=== PATIENT | male | born 1935 | race Caucasian/White ===

== ENCOUNTER 2023-01-01 21:21 | Inpatient (IN) | payer MEDICARE, SELFPAY ==
--- NOTE | ~2023-01-01 | XR_ITS ---
EXAMINATION: XR chest 1V portable DATE: 01/02/2023 01:00 INDICATION: Shortness of breath. TECHNIQUE: A single frontal view of the chest was obtained. COMPARISON: None. FINDINGS: The lung volumes are small. There is a diffuse interstitial pattern in the lungs. There are airspace opacities in the mid and lower lung zones with a basilar predominance. There is a small rig ht pleural effusion. No pneumothorax. Cardiomegaly is noted. There is a left chest wall pacer with le ads in the right atrium and right ventricle. IMPRESSION: 1. Small lung volumes with airspace opacities in the mid and lower lung zones with a basilar predomin ance, consistent with atelectasis versus pneumonia. 2. Interstitial pattern in the lungs, consistent with mild pulmonary edema versus chronic interstitia l lung disease. 3. Small right pleural effusion. 4. Cardiomegaly. Reviewed, dictated and finalized at location A. IMPRESSION: 1. Small lung volumes with airspace opacities in the mid and lower lung zones w ith a basilar predominance, consistent with atelectasis versus pneumonia. 2. Interstitial pattern in the lungs, consistent with mild pulmonary edema vers us chronic interstitial lung disease. 3. Small right pleural effusion. 4. Cardiomegaly.
--- NOTE | ~2023-01-01 | BM_ITS ---
EXAMINATION: CCL bone marrow asp w bx diag DATE: 01/03/2023 09:52 INDICATION: Anemia. TECHNIQUE: A time-out was performed to verify the patient's name, date of , and procedure to b e performed. The procedure including the risks, benefits, and alternatives was discussed with the pat ient. Risks discussed included bleeding and infection. The patient understood the risks and agreed to proceed. The skin overlying the left ilium was prepped and draped in usual sterile fashion. Anesth etic was administered with 1% lidocaine subcutaneously. An 11 gauge needle was inserted into the iliu m with fluoroscopic guidance. Bone marrow was aspirated. An 8 gauge needle was then inserted into the ilium with fluoroscopic guidance. A core bone marrow biopsy was obtained. There were no immediate co mplications. Fluoroscopy exposure time was 0.2 minutes. The total number of images was 115. FINDINGS: Real-time fluoroscopy demonstrates a marker overlying the left posterior superior iliac spi ne. IMPRESSION: 1. Fluoro-guided bone marrow aspiration. 2. Fluoro-guided bone marrow core biopsy. Reviewed, dictated and finalized at location A.
[2023-01-01 21:34] VITALS: BP 129/80; PULSE 107; RESP 20; TEMP 37; O2SAT 96
[2023-01-01 21:55] LABS: Eosinophils Absolute Auto 0.1 K/mm3 (0-0.3); Eosinophils Percent Auto 1.2 % (0-4.4); Hematocrit 21.2 % (42.0-52.0); Immature Granulocyte Absolute 0.06 K/mm3 (0.00-0.031); Immature Granulocyte Percent A 1.1 % (0-0.5); Lymphocytes Absolute Auto 0.95 K/mm3 (0.9-3.2); Lymphocytes Percent Auto 16.8 % (18.3-44.2); Mean Corpuscular HGB Conc 27.4 g/dl (32-36); Mean Corpuscular Hemoglobin 30.5 pg (26-34); Mean Corpuscular Volume 111.6 fl (80-100); Mean Platelet Volume 9.9 fl (7.4-10.4); Monocytes Absolute Auto 0.5 K/mm3 (0.1-0.6); Neutrophils Absolute Auto 4.1 K/mm3 (1.3-6.7); Neutrophils Percent Auto 71.9 % (45.5-73.1); Platelet Count Result 312 k/mm3 (150-375); Red Cell Distribution Width 18.3 % (11.5-14.5); White Blood Count 5.7 K/mm3 (4.5-10.0)
[2023-01-01 22:05] LABS: INR 1.2; Prothrombin Time 15.6 Seconds (11.1-14.7)
[2023-01-01 22:06] LABS: Alanine Aminotransferase 23 U/L (6-50); Alkaline Phosphatase 141 U/L (38-126); Anion Gap 4 mmol/L (8-16); Aspartate Amino Transferase 22 U/L (17-59); Bilirubin,Total 0.6 mg/dL (0.2-1.3); Blood Urea Nitrogen 23 mg/dL (9-20); Calcium 7.2 mg/dL (8.4-10.2); Carbon Dioxide 34 mmol/L (22-30); Chloride 100 mmol/L (98-107); Estimated CRCL calculation 66 ml/min; Estimated Glomerular Filt Rate > 60; Glucose 123 mg/dL (65-110); Potassium 3.9 mmol/L (3.4-5.0); Sodium 138 mmol/L (137-145)
[2023-01-01 22:07] LABS: Partial Thromboplastin Time 45.3 SECONDS (22.3-36.8)
[2023-01-01 22:27] LABS: Hemoglobin 5.8 g/dL (14.0-18.0)
[2023-01-01 22:28] LABS: Platelet Estimate Adequate (Adequate)
[2023-01-01 22:29] LABS: Anisocytosis 2+ (NORMAL); Hypochromasia 2+ (NORMAL); Polychromasia 1+ (NORMAL)
[2023-01-01 22:30] LABS: Schistocytes None Seen (NORMAL)
[2023-01-01 22:35] VITALS: RESP 22; O2SAT 97
--- NOTE | 2023-01-01 23:00 | ED.RECABL ---
HPI - Recheck/Abnormal Lab/Rx General Chief Complaint: Recheck/Abnormal Lab/Rx Stated Complaint: abn labs Time Seen by Provider: 01/01/23 22:03 History of Present Illness HPI narrative: This is an 87-year-old male, with previous history of anemia of unknown cause. Who is brought in by EMS for a low hemoglobin. The patient states he had routine labs done and was told his hemoglobin was 6. The patient states this is happened multiple times before. He states he underwent colonoscopy 2 years ago by his GI doctor at [facility] without obvious findings. The patient states he does take anticoagulants. EMS reports the patient wears 2 L of O2 at baseline was found satting in the mid 80s and increased to 4 L. He complains of some fatigue and intermittent dyspnea but has no other complaints today. Related Data Home Medications Medication Instructions Recorded Confirmed Pro-Stat AWC 17 g PO DAILY 01/02/23 01/02/23 Vitamin D2 1,250 mcg PO WEEKLY 01/02/23 01/02/23 acetaminophen 500 mg PO QID PRN Pain, Mild 01/02/23 01/02/23 albuterol sulfate 90 mcg/actuation 2 puff inhalation TID PRN 01/02/23 01/02/23 aerosol inhaler Shortness Of Breath Or Wheezing aluminum-magnesium hydroxide 30 ml BYMOUTH QID PRN Gastric 01/02/23 01/02/23 Reflux apixaban 5 mg tablet (Eliquis) 5 mg PO BID 01/02/23 01/02/23 aspirin 81 mg tablet 81 mg PO DAILY 01/02/23 01/02/23 atorvastatin 20 mg tablet 20 mg PO HS 01/02/23 01/02/23 calcium carbonate 1 tablet PO DAILY 01/02/23 01/02/23 cyanocobalamin (vitamin B-12) 1,000 mcg PO DAILY 01/02/23 01/02/23 1,000 mcg tablet docusate sodium 100 mg capsule 100 mg PO BID 01/02/23 01/02/23 dutasteride 0.5 mg capsule 0.5 mg PO DAILY 01/02/23 01/02/23 ferrous sulfate 325 mg (65 mg 325 mg PO BID 01/02/23 01/02/23 iron) tablet fluticasone fur. 100 mcg-umeclid 1 inh inhalation DAILY 01/02/23 01/02/23 62.5 mcg-vilant 25 mcg inhalat.powder (Trelegy Ellipta) fluticasone propionate 50 2 spray intranasal DAILY 01/02/23 01/02/23 mcg/actuation nasal spray,suspension folic acid 1 mg tablet 1 mg PO DAILY 01/02/23 01/02/23 furosemide 20 mg tablet 20 mg PO DAILY 01/02/23 01/02/23 furosemide 40 mg tablet 40 mg PO DAILY 01/02/23 01/02/23 levothyroxine 100 mcg PO DAILY 01/02/23 01/02/23 lidocaine 5 % topical patch 1 patch topical DAILY 01/02/23 01/02/23 magnesium hydroxide 400 mg PO DAILY PRN Constipation 01/02/23 01/02/23 ondansetron 4 mg disintegrating 4 mg PO Q4H PRN Nausea And Vomiting 01/02/23 01/02/23 tablet oxycodone 5 mg tablet 5 mg PO Q4H PRN pain 7-10 01/02/23 01/02/23 pantoprazole 40 mg PO BID 01/02/23 01/02/23 potassium chloride 20 meq PO DAILY 01/02/23 01/02/23 senna 8.6 mg PO HS 01/02/23 01/02/23 sertraline 50 mg PO HS 01/02/23 01/02/23 Allergies Allergy/AdvReac Type Severity Reaction Status Date / Time No Known Allergies Allergy Verified 01/01/23 21:44 Review of Systems Review of Systems: CONSTITUTIONAL: Denies fever, chills, or sweats. CARDIOVASCULAR: Denies chest pain, palpitations, or edema. RESPIRATORY: Intermittent dyspnea on exertion denies cough GASTROINTESTINAL: Chronic dark stools (takes iron) denies abdominal pain, nausea, vomiting, or diarrhea. GENITOURINARY: Denies dysuria or hematuria. SKIN: Denies rash or itching. MUSCULOSKELETAL: Denies back pain, joint pain, or myalgia. NEUROLOGIC: Denies headache, numbness, dizziness, or weakness. PSYCHIATRIC: Denies anxiety or depression. [facility] Past Medical History Medical History (Updated 01/02/23 @ 00:21 by Isrrael Ventura MD) Anemia CHF (congestive heart failure) History of femur fracture Hypertension Hypothyroidism Surgical History Surgical History (Updated 01/02/23 @ 00:19 by Enid Rizvi MD) Status post placement of cardiac pacemaker Social History Social History (Updated 01/01/23 @ 23:04 by Isrrael Ventura MD) Smoking status: Never smoker Alcohol intake: current Substance use: never Lack of Transporta
--- NOTE | 2023-01-01 23:16 | PC.NURSE ---
gave report and care to FAHAD Michaels. all questions answered.
[2023-01-01 23:28] VITALS: BP 127/64; PULSE 90; RESP 25; O2SAT 94
--- NOTE | 2023-01-01 23:40 | PM.IMHP ---
H&P: HPI History of Present Illness Date/Time: 01/01/23 23:40 Chief Complaint: Abnormal lab value Narrative: This is an 87-year-old male with past medical history significant for congestive heart failure, history of femur fracture, hypertension, hypothyroidism patient has pacemaker implanted. He is a resident at a local senior living was brought for evaluation after routine lab work showed a hemoglobin of 5.8. Patient states that his stools are black for the last several weeks has had colonoscopies done in the recent past, patient denies any hematemesis or coffee-ground emesis, has had swelling of the legs and arms, denies lightheadedness, dizziness, syncope or near-syncope, no chest pain, no fevers, no chills, no nausea, no vomiting no diarrhea. Preliminary workup in the emergency room hemoglobin was 5.8, hematocrit 21, MCV 111, at this time iron studies are pending. Patient is been admitted for further evaluation management and treatment. A chest x-ray was reported as: EXAMINATION: XR chest 1V portable DATE: 01/02/2023 01:00 INDICATION: Shortness of breath. TECHNIQUE: A single frontal view of the chest was obtained. COMPARISON: None. FINDINGS: The lung volumes are small. There is a diffuse interstitial pattern in the lungs. There are airspace opacities in the mid and lower lung zones with a basilar predominance. There is a small right pleural effusion. No pneumothorax. Cardiomegaly is noted. There is a left chest wall pacer with leads in the right atrium and right ventricle. IMPRESSION: 1. Small lung volumes with airspace opacities in the mid and lower lung zones with a basilar predominance, consistent with atelectasis versus pneumonia. 2. Interstitial pattern in the lungs, consistent with mild pulmonary edema versus chronic interstitial lung disease. 3. Small right pleural effusion. 4. Cardiomegaly. Review of Systems Review of Systems: Shortness of breath, swelling, palpitations. Constitutional: Constitutional: Denies chills, Denies fever(s) and Denies night sweats Eyes: Eyes: Denies change in vision ENT: Denies dysphagia, Denies vertigo and Denies dizziness Cardiovascular: Cardiovascular: Denies chest pain at rest, Denies syncope, Reports rapid heart rate, Reports pedal edema, Reports leg edema, Denies lightheadedness, Denies radiating jaw, neck or arm pain, Reports dyspnea on exertion, Reports orthopnea and Reports paroxysmal nocturnal dyspnea Respiratory: Respiratory: Reports chest congestion, Reports cough, Denies excessive phlegm production, Denies pain on inspiration and Reports dyspnea on exertion Gastrointestinal: Gastrointestinal: Denies dyspepsia, Denies heartburn, Denies diarrhea and Denies nausea Genitourinary: Genitourinary: Reports no additional male genitourinary complaints and Reports as per HPI Musculoskeletal: Musculoskeletal: Denies arthralgias and Denies joint swelling Integumentary/Breasts: Skin/Breast: Denies rash and Reports other (Skin tears) Neurologic: Denies focal weakness and Denies Sensory deficit (Neuro) Psychiatric: Psychiatric: Reports no additional psychiatric complaints and Reports as per HPI Endocrine: Endocrine: Denies cold intolerance, Denies deepening of the voice, Denies heat intolerance and Denies polyuria Hematologic/Lymphatic: Hematologic/Lymphatic: Reports no additional hematologic/lymphatic complaints and Reports as per HPI Allergic/Immunologic: Allergic/Immunologic: Reports no additional allergic/immunologic complaints and Reports as per HPI PMFSH Past Medical History Medical History Anemia CHF (congestive heart failure) History of femur fracture Hypertension Hypothyroidism Surgical History Surgical History Status post placement of cardiac pacemaker Social History Social History Smoking statu
[2023-01-01] MEDS: FUROSEMIDE INJ 40 MG/4 ML VIAL 20 MG IV PUSH (23:51)
[2023-01-01] MEDS: CALCIUM GLUCONATE 1,000 MG/10 ML VIAL 1000 MG IV PUSH (23:51)
[2023-01-02] VITALS (17 sets, daily range): BP systolic 106–125; BP diastolic 45–92; PULSE 54–83; RESP 14–22; TEMP 36.2–37.1; O2SAT 91–100; BMI 30.4
[2023-01-02] MEDS: SODIUM CHLORIDE 0.9% IV 250 ML IV CONT (00:43)
[2023-01-02] MEDS: TUBING, BLOOD PLUM PUMP TUBING 1 EACH XX ×2 (00:44→03:43)
[2023-01-02 01:18] LABS: Iron 53 ug/dL (49-181)
[2023-01-02 01:31] LABS: Percent Iron Saturation 20 % (20-50)
--- NOTE | 2023-01-02 01:36 | ADMGEN ---
This patient, Aiden Fernandez, was admitted to [facility] Surg Room 309-01. Patient/family oriented to hospital policies and general routines including ID bracelet, bed and alarms, visiting hours, pain management, procedures, bathroom and other care routines, personal items, smoking policy, room service/diet, and visiting hours. Information on how to activate the Rapid Response Team has been discussed. Patient/Family are encouraged to report perceived risks to care and to ask questions if they do not understand what they are told or what they should do.
--- NOTE | 2023-01-02 06:29 | WPDGICN ---
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 MCV is quite elevated at over 111. He had been started on B12 but does not know when. He is fairly certain that he has not seen a psychological science professor. (2) GI bleed: Qualifiers: GI bleed type/associated pathology: unspecified gastrointestinal hemorrhage type Qualified Code(s): K92.2 - Gastrointestinal hemorrhage, unspecified Code(s): K92.2 - Gastrointestinal hemorrhage, unspecified Status: Acute Assessment and Plan: Although he has a Hemoccult-positive stool, he has not her road overt bleeding. He had 2 EGDs earlier this year at that time something was cauterized. 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 I will get the records from [facility]. (3) Status post placement of cardiac pacemaker: Code(s): Z95.0 - Presence of cardiac pacemaker Status: Acute Assessment and Plan: He states that he had atrial flutter and was on an anticoagulant but he states that when the pacemaker was put in he had a coagulant therapy was discontinued. Then, after he thought about it further, he thinks maybe he was placed on Eliquis at the same time as the pacer was inserted. Nevertheless he is fairly certain that he does not take it at this time. Plan Will await records from other hospitals due to the fact that it seems that his anemia had been thoroughly investigated already. He certainly does not have microcytic indices that would be suggestive of gastrointestinal blood loss. He perhaps ought to be seen by Hematology GI Consult Note Consult date/time: 01/02/23 06:29 HPI: Aiden Fernandez is a 87 year old male who presented to emergency room stating that he was told by his physician that his blood count was low and he needed to come in. He states he has been somewhat short of breath lately. He tells me that about a year ago he was found to be anemic and has struggled with this ever since. He does not see blood in his stools. His stools are chronically dark because he takes iron. I note that he also is on vitamin B12. He has megaloblastic disease. He has never seen a psychological science professor. He had EGD twice in the last [address] [facility]. Both times he states that a DrSadie Cauterized something. He had a colonoscopy about [address] Vazquez he was told that was normal. He has no abdominal pain. He does not take NSAIDs. He denies heartburn indigestion or loss of appetite. He also denies weight loss or any significant change in his bowel movements. Review of Systems Review of Systems: All systems reviewed & are unremarkable except as noted in HPI and below PMFSH Past Medical History Medical History Anemia CHF (congestive heart failure) History of femur fracture Hypertension Hypothyroidism Surgical History Surgical History Status post placement of cardiac pacemaker Social History Social History Smoking status: Never smoker Alcohol intake: current Substance use: never Lack of Transportation: No Lack of Food: Never True Current Housing: I Have Housing Concerned About Future Housing: No Difficulty Paying Gas/Electric Bills: No Difficulty Paying for Meds: No Currently Unemployed: No Education: Master's Degree or Higher Difficulty w/ Childcare or Family Care: No Spiritual care concerns: No Meds Home Medications and Allergies Home Medications Medication Instructions Recorded Confirmed Type Pro-Stat AWC 17 g PO DAILY 01/02/23 01/02/23 History Vitamin D2 1,250 mcg PO WEEKLY 01/02/23 01/02/23 History acetaminophen 500 mg PO QID PRN Pain, Mild 01/02/23 01/02/23 H
[2023-01-02 07:02] LABS: Eosinophils Absolute Auto 0.1 K/mm3 (0-0.3); Eosinophils Percent Auto 1.9 % (0-4.4); Hematocrit 25.7 % (42.0-52.0); Hemoglobin 7.4 g/dL (14.0-18.0); Immature Granulocyte Absolute 0.07 K/mm3 (0.00-0.031); Immature Granulocyte Percent A 1.4 % (0-0.5); Lymphocytes Absolute Auto 0.94 K/mm3 (0.9-3.2); Lymphocytes Percent Auto 19.5 % (18.3-44.2); Mean Corpuscular HGB Conc 28.8 g/dl (32-36); Mean Corpuscular Hemoglobin 29.4 pg (26-34); Mean Platelet Volume 10.1 fl (7.4-10.4); Monocytes Absolute Auto 0.5 K/mm3 (0.1-0.6); Monocytes Percent Auto 10.6 % (2.6-8.5); Neutrophils Absolute Auto 3.2 K/mm3 (1.3-6.7); Neutrophils Percent Auto 66.6 % (45.5-73.1); Platelet Count Result 278 k/mm3 (150-375); Red Blood Count 2.52 M/mm3 (4.6-6.20); Red Cell Distribution Width 21.8 % (11.5-14.5); White Blood Count 4.8 K/mm3 (4.5-10.0)
[2023-01-02 07:09] LABS: Anion Gap 0 mmol/L (8-16); Blood Urea Nitrogen 21 mg/dL (9-20); Calcium 7.3 mg/dL (8.4-10.2); Carbon Dioxide 39 mmol/L (22-30); Chloride 100 mmol/L (98-107); Estimated CRCL calculation 71 ml/min; Estimated Glomerular Filt Rate > 60; Glucose 94 mg/dL (65-110); Potassium 3.4 mmol/L (3.4-5.0); Sodium 139 mmol/L (137-145)
[2023-01-02] MEDS: oxyCODONE HCL (*CRX) 5 MG TAB IR PO ×2 (12:28→16:59)
[2023-01-02] MEDS: PHARMACIST COMMUNICATION ORDER 1 EACH XX (12:31)
--- NOTE | 2023-01-02 12:31 | PM.IMPN ---
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 Will continued to monitor. (2) Status post placement of cardiac pacemaker: Code(s): Z95.0 - Presence of cardiac pacemaker Status: Acute Assessment and Plan: Stable, continue current treatment. (3) CHF (congestive heart failure): Code(s): I50.9 - Heart failure, unspecified Status: Acute Assessment and Plan: Stable, continue current treatment. Subjective Date/time seen: 01/02/23 12:31 Interval history: Patient seen during morning rounds today. Patient is feeling slightly better. No shortness of breath or chest pain. No abdominal pain, nausea, no vomiting. Mood stable. Review of Systems Review of Systems: All systems reviewed & are unremarkable except as noted in HPI and below (the history and physical exam.) Exam Narrative: Patient is laying in a stretcher Const: General: comfortable, no acute distress, well developed, alert, awake, ill appearing, average body habitus and edematous Nutritional Appearance: average body habitus and edematous Orientation/consciousness: patient oriented x3 HENMT: Head: normal to inspection, normocephalic and atraumatic Ears: hearing grossly normal bilaterally Face/Nose/Sinus: normal facial exam Face and sinus: normal facial exam Eyes: General: appearance normal, both eyes and all related structures Pupils: Equal, round and reactive pupils present EOM: EOMs intact bilaterally Neck: Neck: full ROM, no lymphadenopathy and no JVD Thyroid: thyroid normal Lymphatic: no lymphadenopathy noted Resp: Effort & Inspection: normal respiratory effort and able to speak in complete sentences Auscultation: clear to auscultation bilaterally Cardio: Jugular venous distension: no JVD Rate: regular rate Rhythm: regular rhythm Heart sounds: S1 normal heart sound present and S2 normal heart sound present GI: Inspection: normal to inspection : General: Yes deferred Skin: General skin exam: wounds noted (skin tear bilateral upper extremities) Rashes: no rashes Wounds: no wounds and wounds noted (skin tear bilateral upper extremities) Neuro: General: patient oriented x3, CN's II-XI intact bilaterally and Unable to assess gait Cranial nerves: Yes CN's II-XII intact bilaterally and Yes Equal, round and reactive pupils present Cognition (Neuro): normal cognition Speech: normal speech Gait exam (Neuro): Normal gait present and Unable to assess gait Motor exam (neuro): 5/5 motor strength present throughout Extrem: General: normal to inspection, full ROM, no joint enlargement, no pedal edema and edema bilateral (4+) Objective Data Vital Signs Vital Signs: Vital Signs - 24 hr 01/01/23 21:34 01/01/23 22:35 01/01/23 23:28 Temperature 37.0 C Pulse Rate 107 H 90 Respiratory Rate 20 22 H 25 H Blood Pressure 129/80 127/64 Pulse Oximetry 96 97 94 Oxygen Delivery Nasal Cannula Oxygen Flow Rate 4 4 01/02/23 00:39 01/02/23 00:55 01/02/23 00:57 Temperature 37.0 C 36.7 C Pulse Rate 83 79 77 Respiratory Rate 21 H 21 H 22 H Blood Pressure 116/92 H 119/69 119/69 Pulse Oximetry 98 100 100 Oxygen Delivery Oxygen Flow Rate 01/02/23 02:06 01/02/23 02:34 01/02/23 02:41 Temperature 36.3 C L 36.3 C L Pulse Rate 71 71 Respiratory Rate 16 16 Blood Pressure 106/45 L 106/45 L Pulse Oximetry 95 95 95 Oxygen Delivery Nasal Cannula Oxygen Flow Rate 4 01/02/23 01:37 01/02/23 02:57 01/02/23 03:57 Temperature 36.6 C 36.2 C L 36.6 C Pulse Rate 82 76 54 L Respiratory Rate 17 16 16 Blood Pressure 124/56 L 125/56 L 122/55 L Pulse Oximetry 91 93 96 Oxygen Delivery Oxygen Flow Rate 01/02/23 04:33 01/02/23 05:30 01/02/23 09:10 Temperature 36.3 C L 36.3 C L Pulse Rate 72 72 Respiratory Rate 16 16 Blood Pressure
[2023-01-02] MEDS: FUROSEMIDE 40 MG TABLET PO (12:58)
--- NOTE | 2023-01-02 19:18 | PDONCCN ---
HPI - Date of Consult Date/Time: 01/02/23 19:18 Requesting Physician: Enid Rizvi MD Primary Care Provider: PHYSICIAN NOT ON STAFF - Consult Narrative Reason for consult: Macrocytic anemia Narrative: Aiden Fernandez is a 87 year old male with history of congestive heart failure, hypertension and hypothyroidism who is a [facility] resident came into the hospital with significant tiredness and fatigue and found to have hemoglobin of 5.8. Iron studies were done before the blood transfusion showed normal serum iron of 53 with iron saturation of 20%. He has been having black tarry stool but has been taking oral iron twice a day as well. He denies any chest pain and shortness of breath. Hemoccult stool was positive. According to patient he had colonoscopy done 8 months ago and 1 of the bleeding lesion was cauterized. Patient now received 2 units of packed red blood cell. Denies any other complaint other than tiredness and fatigue. Review of Systems - Review of Systems All systems reviewed & are unremarkable except as noted in HPI and [facility] Medical History: Medical History (Last Reviewed 01/02/23 @ 07:20 by Kash Banuelos MD) Anemia CHF (congestive heart failure) History of femur fracture Hypertension Hypothyroidism Surgical History: Surgical History (Last Reviewed 01/02/23 @ 07:20 by Kash Banuelos MD) Status post placement of cardiac pacemaker - Social History Social History: Social History (Last Reviewed 01/02/23 @ 07:20 by Kash Banuelos MD) Alcohol Use: Alcohol intake: current Substance Use: Substance use: never Others: Spiritual care concerns: No Smoking Status: Smoking status: Never smoker Social Determinants of Health: Has the Lack of Transportation Kept You From Medical Appointments or From Getting Medications?: No Within the Past 12 Months, Were You Worried Whether Your Food Would Run Out Before You Got Money to Buy More?: Never True What is Your Housing Situation Today?: I Have Housing Are You Worried That in the Next 2 Months, You May Not Have Your Own Housing to Live In?: No Do You Have Trouble Paying Your Heating Or Electricity Bill?: No Do You Have Trouble Paying For Medicines?: No Are You Currently Unemployed and Looking for Work?: No Highest Level of Education Completed: Master's Degree or Higher Do You Have Trouble With Childcare or the Care of a Family Member?: No Exam - Vital Signs Vital Signs - 24 hr 01/01/23 21:34 01/01/23 22:35 01/01/23 23:28 Temperature 37.0 C Pulse Rate 107 H 90 Respiratory Rate 20 22 H 25 H Blood Pressure 129/80 127/64 Pulse Oximetry 96 97 94 Oxygen Delivery Nasal Cannula Oxygen Flow Rate 4 4 01/02/23 00:39 01/02/23 00:55 01/02/23 00:57 Temperature 37.0 C 36.7 C Pulse Rate 83 79 77 Respiratory Rate 21 H 21 H 22 H Blood Pressure 116/92 H 119/69 119/69 Pulse Oximetry 98 100 100 Oxygen Delivery Oxygen Flow Rate 01/02/23 02:06 01/02/23 02:34 01/02/23 02:41 Temperature 36.3 C L 36.3 C L Pulse Rate 71 71 Respiratory Rate 16 16 Blood Pressure 106/45 L 106/45 L Pulse Oximetry 95 95 95 Oxygen Delivery Nasal Cannula Oxygen Flow Rate 4 01/02/23 01:37 01/02/23 02:57 01/02/23 03:57 Temperature 36.6 C 36.2 C L 36.6 C Pulse Rate 82 76 54 L Respiratory Rate 17 16 16 Blood Pressure 124/56 L 125/56 L 122/55 L Pulse Oximetry 91 93 96 Oxygen Delivery Oxygen Flow Rate 01/02/23 04:33 01/02/23 05:30 01/02/23 09:10 Temperature 36.3 C L 36.3 C L Pulse Rate 72 72 Respiratory Rate 16 16 Blood Pressure 115/51 L 115/51 L Pulse Oximetry 97 97 94 Oxygen Delivery Nasal Cannula Oxygen Flow Rate 3 01/02/23 08:00 01/02/23 13:46 01/02/23 02:42 Temperature 36.8 C 36.3 C L Pulse Rate 74 71 Respiratory Rate 18 16 Blood Pressure 125/70 106/45 L Pulse Oximetry 94 99 Oxygen Delivery Nasal Cannula Oxygen Flow Rate 3
[2023-01-02] MEDS: ATORVASTATIN 20 MG TABLET PO (20:40)
[2023-01-02] MEDS: DOCUSATE SODIUM 100 MG CAPSULE PO (20:40)
[2023-01-02] MEDS: SERTRALINE HCL 50 MG TABLET PO (20:41)
[2023-01-02] MEDS: PANTOPRAZOLE 40 MG TABLET PO (20:41)
[2023-01-03 05:37] VITALS: BP 129/63; PULSE 66; RESP 16; TEMP 36.8; O2SAT 93
[2023-01-03] MEDS: LEVOTHYROXINE SODIUM 75 MCG TABLET PO (05:46)
[2023-01-03 06:29] LABS: Basophils Percent Auto 0.2 % (0.2-1.2); Eosinophils Absolute Auto 0.1 K/mm3 (0-0.3); Eosinophils Percent Auto 1.7 % (0-4.4); Hemoglobin 7.8 g/dL (14.0-18.0); Immature Granulocyte Absolute 0.04 K/mm3 (0.00-0.031); Immature Granulocyte Percent A 0.9 % (0-0.5); Lymphocytes Absolute Auto 0.79 K/mm3 (0.9-3.2); Lymphocytes Percent Auto 16.9 % (18.3-44.2); Mean Corpuscular HGB Conc 28.9 g/dl (32-36); Mean Corpuscular Hemoglobin 29.5 pg (26-34); Mean Corpuscular Volume 102.3 fl (80-100); Mean Platelet Volume 10.3 fl (7.4-10.4); Monocytes Absolute Auto 0.5 K/mm3 (0.1-0.6); Monocytes Percent Auto 10.5 % (2.6-8.5); Neutrophils Absolute Auto 3.3 K/mm3 (1.3-6.7); Neutrophils Percent Auto 69.8 % (45.5-73.1); Platelet Count Result 303 k/mm3 (150-375); Red Blood Count 2.64 M/mm3 (4.6-6.20); Red Cell Distribution Width 21.1 % (11.5-14.5); White Blood Count 4.7 K/mm3 (4.5-10.0)
[2023-01-03 07:01] LABS: Anisocytosis 2+ (NORMAL); Hypochromasia 2+ (NORMAL); Ovalocytes 1+ (NORMAL)
[2023-01-03 07:02] LABS: Schistocytes None Seen (NORMAL)
[2023-01-03] MEDS: FLUTICASONE/UMECLIDIN/VILANTER 100-62.5-25 MCG ELLIPTA 1 PUFF INHALATION (07:05)
[2023-01-03 07:40] VITALS: PULSE 71; RESP 18; O2SAT 90
[2023-01-03 08:00] VITALS: O2SAT 90
[2023-01-03] MEDS: oxyCODONE HCL (*CRX) 5 MG TAB IR PO ×3 (10:01→20:15)
[2023-01-03] MEDS: FLUTICASONE PROPIONATE 0.05% NA SPR 16 GM BTL (*BKC) 2 SPRAY NASAL (10:02)
[2023-01-03] MEDS: PANTOPRAZOLE 40 MG TABLET PO ×2 (10:02→20:15)
[2023-01-03] MEDS: FOLIC ACID 1 MG TABLET PO (10:02)
[2023-01-03] MEDS: DUTASTERIDE 0.5 MG CAPSULE PO (10:02)
[2023-01-03] MEDS: LIDOCAINE 5% PATCH 1 PATCH TOPICAL (10:02)
[2023-01-03] MEDS: POTASSIUM CHLORIDE 20 MEQ ER TABLET PO (10:02)
[2023-01-03] MEDS: FUROSEMIDE 40 MG TABLET PO (10:03)
[2023-01-03] MEDS: CYANOCOBALAMIN 1,000 MCG TABLET 1000 MCG PO (10:03)
[2023-01-03] MEDS: DOCUSATE SODIUM 100 MG CAPSULE PO ×2 (10:03→20:15)
[2023-01-03 14:00] VITALS: BP 106/65; PULSE 78; RESP 16; TEMP 36.6; O2SAT 98
--- NOTE | 2023-01-03 15:22 | PM.IMPN ---
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 He had routine labs done on 01/01/2023 UA is improved was found to be 6. He underwent colonoscopy 2 years ago by GI doctor at [facility] without obvious finding. He does take anticoagulants. Burst winded oxygen at home at baseline. He was also saturating 80s and had to be increased to 4 L. Reported fatigue and exertional dyspnea. He is on apixaban and aspirin at home hemoglobin in the ER was 5.8 macrocytic. Hemoccult was positive INR 1.2. Was admitted for further evaluation and management. He underwent transfusion of packed red blood cell. Chest x-ray with small lung volumes with airspace opacity in the mid and lower lung zones with basilar predominance. Consistent with atelectasis versus pneumonia. Interstitial pattern in the lungs consistent with mild pulmonary edema versus chronic interstitial lung disease. Small right pleural effusion and cardiomegaly. Pacemaker in left chest wall in situ. Is started on diuresis for his macrocytic anemia hematology and GI has been consulted. He is on B12 replacement therapy. No overt bleeding but 2 EGDs in the past with some cauterization. Records to be obtained. He has history of atrial fibrillation on anticoagulation for that. Hematology has been consulted and with macrocytosis his been evaluated with bone marrow biopsy today H&H to monitor. No transfusion needed today. B12 348 methylmalonic acid pending RBC folate pending Subjective Date/time seen: 01/03/23 15:22 Interval history: Patient underwent bone marrow biopsy today. No shortness of breath chest pain. No abdominal pain or nausea vomiting. Review of Systems Review of Systems: All systems reviewed & are unremarkable except as noted in HPI and below (the history and physical exam.) Exam Narrative: GENERAL: Well-developed, well-nourished, and in no acute distress. HEAD: Normocephalic, atraumatic. EYES: PERRLA and EOMI. conjunctival pallor ENT: Nares clear, no rhinorrhea or epistaxis.? Mucous membranes moist.? NECK: Supple. ? No carotid bruits or JVD CHEST: Clear to auscultation.? No respiratory distress.? No wheezes rales or rhonchi HEART: Regular rate and rhythm.? No murmur heard.? Normal peripheral pulses. ABDOMEN: Soft, nontender, nondistended, normal active bowel sounds. EXTREMITIES: Normal range of motion.? 2+ edema to the knees bilaterally, 1+ edema of the bilateral upper extremities SKIN: Warm, dry, no rash. NEURO:? Alert and oriented x3. Moving all 4 limbs purposefully. PSYCH: Normal mood and affect. Objective Data Vital Signs Vital Signs: Vital Signs - 24 hr 01/02/23 21:45 01/02/23 20:00 01/03/23 05:37 Temperature 98.7 F 98.3 F Pulse Rate 69 66 Respiratory Rate 14 16 Blood Pressure 117/65 129/63 Pulse Oximetry 91 94 93 Oxygen Delivery Nasal Cannula Oxygen Flow Rate 3 01/03/23 07:40 01/03/23 07:40 01/03/23 08:00 Temperature Pulse Rate 71 71 Respiratory Rate 18 18 Blood Pressure Pulse Oximetry 90 90 Oxygen Delivery Nasal Cannula Nasal Cannula Oxygen Flow Rate 3 3 01/03/23 14:00 Temperature 97.8 F Pulse Rate 78 Respiratory Rate 16 Blood Pressure 106/65 Pulse Oximetry 98 Oxygen Delivery Oxygen Flow Rate Intake/Output Intake/Output: Intake & Output 12/31/22 01/01/23 01/02/23 01/03/23 23:59 23:59 23:59 23:59 Intake Total 1820 1710 Output Total 2475 1200 Balance -655 510 Meds/Results Medications: Active Medications Generic Name Dose Route Start La
[2023-01-03] MEDS: SENNOSIDES 8.6 MG TABLET PO (20:15)
[2023-01-03] MEDS: ATORVASTATIN 20 MG TABLET PO (20:15)
[2023-01-03] MEDS: SERTRALINE HCL 50 MG TABLET PO (20:15)
[2023-01-03 22:00] VITALS: BP 112/64; PULSE 74; RESP 18; TEMP 36.2; O2SAT 97
[2023-01-04] VITALS (7 sets, daily range): BP systolic 92–113; BP diastolic 49–57; PULSE 72–88; RESP 18–22; TEMP 36.9–37.5; O2SAT 91–97
[2023-01-04] MEDS: oxyCODONE HCL (*CRX) 5 MG TAB IR PO ×5 (02:42→20:15)
[2023-01-04] MEDS: LEVOTHYROXINE SODIUM 75 MCG TABLET PO (05:35)
[2023-01-04 06:25] LABS: Eosinophils Absolute Auto 0.1 K/mm3 (0-0.3); Eosinophils Percent Auto 1.1 % (0-4.4); Hematocrit 25.4 % (42.0-52.0); Hemoglobin 7.3 g/dL (14.0-18.0); Immature Granulocyte Absolute 0.05 K/mm3 (0.00-0.031); Immature Granulocyte Percent A 0.9 % (0-0.5); Lymphocytes Absolute Auto 0.97 K/mm3 (0.9-3.2); Lymphocytes Percent Auto 18.4 % (18.3-44.2); Mean Corpuscular HGB Conc 28.7 g/dl (32-36); Mean Corpuscular Volume 100.8 fl (80-100); Mean Platelet Volume 10.3 fl (7.4-10.4); Monocytes Absolute Auto 0.6 K/mm3 (0.1-0.6); Monocytes Percent Auto 12.1 % (2.6-8.5); Neutrophils Absolute Auto 3.6 K/mm3 (1.3-6.7); Neutrophils Percent Auto 67.5 % (45.5-73.1); Platelet Count Result 280 k/mm3 (150-375); Red Blood Count 2.52 M/mm3 (4.6-6.20); White Blood Count 5.3 K/mm3 (4.5-10.0)
[2023-01-04 06:37] LABS: Alanine Aminotransferase 18 U/L (6-50); Albumin Level 2.8 g/dL (3.5-5.1); Alkaline Phosphatase 101 U/L (38-126); Anion Gap 2 mmol/L (8-16); Aspartate Amino Transferase 19 U/L (17-59); Bilirubin,Total 0.8 mg/dL (0.2-1.3); Blood Urea Nitrogen 18 mg/dL (9-20); Calcium 7.4 mg/dL (8.4-10.2); Carbon Dioxide 39 mmol/L (22-30); Chloride 94 mmol/L (98-107); Estimated CRCL calculation 71 ml/min; Estimated Glomerular Filt Rate > 60; Glucose 92 mg/dL (65-110); Magnesium 2.1 mg/dL (1.6-2.3); Potassium 3.8 mmol/L (3.4-5.0); Sodium 135 mmol/L (137-145)
[2023-01-04 06:52] LABS: Anisocytosis 2+ (NORMAL); Hypochromasia 3+ (NORMAL); Platelet Estimate Adequate (Adequate); Schistocytes None Seen (NORMAL)
[2023-01-04] MEDS: FLUTICASONE/UMECLIDIN/VILANTER 100-62.5-25 MCG ELLIPTA 1 PUFF INHALATION (08:52)
[2023-01-04] MEDS: DUTASTERIDE 0.5 MG CAPSULE PO (09:10)
[2023-01-04] MEDS: CYANOCOBALAMIN 1,000 MCG TABLET 1000 MCG PO (09:10)
[2023-01-04] MEDS: PANTOPRAZOLE 40 MG TABLET PO ×2 (09:10→20:15)
[2023-01-04] MEDS: FUROSEMIDE 40 MG TABLET PO (09:10)
[2023-01-04] MEDS: POTASSIUM CHLORIDE 20 MEQ ER TABLET PO (09:10)
[2023-01-04] MEDS: CALCIUM CARBONATE (TUMS) 500 MG (200 MG ELEMENTAL) PO (09:10)
[2023-01-04] MEDS: DOCUSATE SODIUM 100 MG CAPSULE PO ×2 (09:10→20:14)
[2023-01-04] MEDS: FLUTICASONE PROPIONATE 0.05% NA SPR 16 GM BTL (*BKC) 2 SPRAY NASAL (09:11)
[2023-01-04] MEDS: FOLIC ACID 1 MG TABLET PO (09:11)
[2023-01-04] MEDS: ACETAMINOPHEN 500 MG TABLET PO ×2 (09:16→16:54)
[2023-01-04] MEDS: LIDOCAINE 5% PATCH 1 PATCH TOPICAL (09:16)
--- NOTE | 2023-01-04 15:30 | PM.IMPN ---
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 He had routine labs done on 01/01/2023 and his hemoglobin was found to be 6. He underwent colonoscopy 2 years ago by GI doctor at [facility] without obvious finding. He does take anticoagulants. He was also saturating 80s and had to be increased to 4 L. Reported fatigue and exertional dyspnea. He is on apixaban and aspirin at home hemoglobin in the ER was 5.8 macrocytic. Hemoccult was positive INR 1.2. Was admitted for further evaluation and management. He underwent transfusion of packed red blood cell. Chest x-ray with small lung volumes with airspace opacity in the mid and lower lung zones with basilar predominance. Consistent with atelectasis versus pneumonia. Interstitial pattern in the lungs consistent with mild pulmonary edema versus chronic interstitial lung disease. Small right pleural effusion and cardiomegaly. Pacemaker in left chest wall in situ. Is started on diuresis. For his macrocytic anemia hematology and GI has been consulted. He is on B12 replacement therapy. No overt bleeding but 2 EGDs in the past with some cauterization. Records to be obtained. He has history of atrial fibrillation on anticoagulation for that. Hematology has been consulted and with macrocytosis his been evaluated with bone marrow biopsy today H&H to monitor. B12 348 methylmalonic acid pending RBC folate pending Subjective Date/time seen: 01/04/23 15:30 Interval history: P is working with the therapy this morning. Reports right knee pain. Denies any other complaints. Labs were reviewed. Remains afebrile. Shortness of breath with exertion. Review of Systems Review of Systems: All systems reviewed & are unremarkable except as noted in HPI and below (the history and physical exam.) Exam Narrative: GENERAL: Well-developed, well-nourished, and in no acute distress. HEAD: Normocephalic, atraumatic. EYES: PERRLA and EOMI. conjunctival pallor ENT: Nares clear, no rhinorrhea or epistaxis.? Mucous membranes moist.? NECK: Supple. ? No carotid bruits or JVD CHEST: Clear to auscultation.? No respiratory distress.? No wheezes rales or rhonchi HEART: Regular rate and rhythm.? No murmur heard.? Normal peripheral pulses. ABDOMEN: Soft, nontender, nondistended, normal active bowel sounds. EXTREMITIES: Normal range of motion.? 2+ edema to the knees bilaterally, 1+ edema of the bilateral upper extremities SKIN: Warm, dry, no rash. NEURO:? Alert and oriented x3. Moving all 4 limbs purposefully. PSYCH: Normal mood and affect. Objective Data Vital Signs Vital Signs: Vital Signs - 24 hr 01/03/23 20:00 01/03/23 22:00 01/04/23 05:53 Temperature 97.1 F L 98.5 F Pulse Rate 74 72 Respiratory Rate 18 18 Blood Pressure 112/64 92/49 L Pulse Oximetry 97 97 Oxygen Delivery Room Air Oxygen Flow Rate 01/04/23 06:06 01/04/23 09:41 01/04/23 10:00 Temperature Pulse Rate Respiratory Rate Blood Pressure 98/52 L Pulse Oximetry Oxygen Delivery Nasal Cannula Nasal Cannula Oxygen Flow Rate 4 3 01/04/23 13:49 01/04/23 09:00 01/04/23 14:00 Temperature 99.5 F Pulse Rate 85 Respiratory Rate 22 H Blood Pressure 113/50 L Pulse Oximetry 93 94 94 Oxygen Delivery Nasal Cannula Nasal Cannula Oxygen Flow Rate 3 3 Intake/Output Intake/Output: Intake & Output 01/01/23 01/02/23 01/03/23 01/04/23 23:59 23:59 23:59 23:59 Intake Total 1820 1710 880 Output Total 2475 2400 300 Balance -074 -077 580 Meds/Results
[2023-01-04] MEDS: ATORVASTATIN 20 MG TABLET PO (20:15)
[2023-01-04] MEDS: SENNOSIDES 8.6 MG TABLET PO (20:15)
[2023-01-04] MEDS: SERTRALINE HCL 50 MG TABLET PO (20:15)
[2023-01-05] VITALS (11 sets, daily range): BP systolic 102–124; BP diastolic 54–65; PULSE 75–84; RESP 16–18; TEMP 36.7–37.4; O2SAT 91–94
[2023-01-05] MEDS: oxyCODONE HCL (*CRX) 5 MG TAB IR PO ×4 (04:33→21:17)
[2023-01-05] MEDS: LEVOTHYROXINE SODIUM 75 MCG TABLET PO (05:47)
[2023-01-05] MEDS: FLUTICASONE/UMECLIDIN/VILANTER 100-62.5-25 MCG ELLIPTA 1 PUFF INHALATION (07:01)
[2023-01-05 07:20] LABS: Basophils Percent Auto 0.2 % (0.2-1.2); Eosinophils Absolute Auto 0.1 K/mm3 (0-0.3); Eosinophils Percent Auto 1.7 % (0-4.4); Hematocrit 22.8 % (42.0-52.0); Immature Granulocyte Absolute 0.03 K/mm3 (0.00-0.031); Immature Granulocyte Percent A 0.7 % (0-0.5); Lymphocytes Absolute Auto 0.73 K/mm3 (0.9-3.2); Lymphocytes Percent Auto 15.9 % (18.3-44.2); Mean Corpuscular HGB Conc 28.9 g/dl (32-36); Mean Corpuscular Hemoglobin 29.2 pg (26-34); Mean Corpuscular Volume 100.9 fl (80-100); Mean Platelet Volume 10.3 fl (7.4-10.4); Monocytes Absolute Auto 0.6 K/mm3 (0.1-0.6); Monocytes Percent Auto 13.3 % (2.6-8.5); Neutrophils Absolute Auto 3.1 K/mm3 (1.3-6.7); Neutrophils Percent Auto 68.2 % (45.5-73.1); Platelet Count Result 242 k/mm3 (150-375); Red Blood Count 2.26 M/mm3 (4.6-6.20); Red Cell Distribution Width 19.7 % (11.5-14.5); White Blood Count 4.6 K/mm3 (4.5-10.0)
[2023-01-05 07:42] LABS: Alanine Aminotransferase 16 U/L (6-50); Albumin Level 2.6 g/dL (3.5-5.1); Alkaline Phosphatase 97 U/L (38-126); Anion Gap -1 mmol/L (8-16); Aspartate Amino Transferase 19 U/L (17-59); Bilirubin,Total 0.7 mg/dL (0.2-1.3); Blood Urea Nitrogen 20 mg/dL (9-20); Carbon Dioxide 37 mmol/L (22-30); Chloride 95 mmol/L (98-107); Estimated CRCL calculation 63 ml/min; Estimated Glomerular Filt Rate > 60; Glucose 95 mg/dL (65-110); Magnesium 2.1 mg/dL (1.6-2.3); Potassium 3.7 mmol/L (3.4-5.0); Sodium 131 mmol/L (137-145)
[2023-01-05 08:10] LABS: Hemoglobin 6.6 g/dL (14.0-18.0)
[2023-01-05 08:11] LABS: Anisocytosis 2+ (NORMAL); Hypochromasia 3+ (NORMAL); Platelet Estimate Adequate (Adequate); Schistocytes None Seen (NORMAL)
[2023-01-05] MEDS: FLUTICASONE PROPIONATE 0.05% NA SPR 16 GM BTL (*BKC) 2 SPRAY NASAL (08:57)
[2023-01-05] MEDS: DUTASTERIDE 0.5 MG CAPSULE PO (08:57)
[2023-01-05] MEDS: CALCIUM CARBONATE (TUMS) 500 MG (200 MG ELEMENTAL) PO (08:57)
[2023-01-05] MEDS: LIDOCAINE 5% PATCH 1 PATCH TOPICAL (08:58)
[2023-01-05] MEDS: DOCUSATE SODIUM 100 MG CAPSULE PO ×2 (08:58→20:31)
[2023-01-05] MEDS: FUROSEMIDE 40 MG TABLET PO (08:58)
[2023-01-05] MEDS: PANTOPRAZOLE 40 MG TABLET PO ×2 (08:58→20:31)
[2023-01-05] MEDS: POTASSIUM CHLORIDE 20 MEQ ER TABLET PO (08:58)
[2023-01-05] MEDS: ERGOCALCIFEROL 50,000 UNITS CAPSULE 50000 UNITS PO (08:58)
[2023-01-05] MEDS: FOLIC ACID 1 MG TABLET PO (08:58)
[2023-01-05] MEDS: CYANOCOBALAMIN 1,000 MCG TABLET 1000 MCG PO (08:58)
[2023-01-05] MEDS: SODIUM CHLORIDE 0.9% IV 250 ML 30 ML IV CONT (14:20)
[2023-01-05] MEDS: TUBING, BLOOD PLUM PUMP TUBING 1 EACH XX (14:20)
[2023-01-05] MEDS: POTASSIUM CHLORIDE 20 MEQ ER TABLET 40 MEQ PO (16:03)
--- NOTE | 2023-01-05 17:45 | PM.IMPN ---
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 He had routine labs done on 01/01/2023 and his hemoglobin was found to be 6. He underwent colonoscopy 2 years ago by GI doctor at [facility] without obvious finding. He does take anticoagulants. He was also saturating 80s and had to be increased to 4 L. Reported fatigue and exertional dyspnea. He is on apixaban and aspirin at home hemoglobin in the ER was 5.8 macrocytic. Hemoccult was positive INR 1.2. Was admitted for further evaluation and management. He underwent transfusion of packed red blood cell. Chest x-ray with small lung volumes with airspace opacity in the mid and lower lung zones with basilar predominance. Consistent with atelectasis versus pneumonia. Interstitial pattern in the lungs consistent with mild pulmonary edema versus chronic interstitial lung disease. Small right pleural effusion and cardiomegaly. Pacemaker in left chest wall in situ. Is started on diuresis. For his macrocytic anemia hematology and GI has been consulted. He is on B12 replacement therapy. No overt bleeding but 2 EGDs in the past with some cauterization. Records to be obtained. He has history of atrial fibrillation on anticoagulation for that. Hematology has been consulted and with macrocytosis his been evaluated with bone marrow biopsy. 01/05/2023: spoke with both the patient and the daughter in detail. His last colonoscopy was 4 years ago and had 2 EGDs, last 1 was about a year ago. Patient to be followed up closely by GI on Saturday. I ordered 1 unit of packed RBCs as hemoglobin was 6.6. Repeat 2 H&H later on today. Encourage ambulation. ? Patient seen and examined at bedside during my morning rounds ? Collaborated with patient's nurse at the bedside in detail and addressed all concerns ? Labs, electrolytes, radiology, investigations and test results reviewed ? Consult notes on the case reviewed and appreciated ? Spoke with patient/family at the bedside and answered all the questions that they had Repeat labs in a.m. Electrolyte replacement as per protocol. Patient will be monitored very closely on the floor. Further recommendations as per the hospital course. Subjective Date/time seen: 01/05/23 17:45 Interval history: 01/04/2023: Pt is working with the therapy this morning. Reports right knee pain. Denies any other complaints. Labs were reviewed. Remains afebrile. Shortness of breath with exertion. 01/05/2023: patient seen and evaluated at the bedside. He feels tired and fatigued. Hemoglobin was 6.6 hence 1 unit of packed RBCs ordered. spoke with patient and daughter in detail about his GI workup. Review of Systems Review of Systems: All systems reviewed & are unremarkable except as noted in HPI and below (the history and physical exam.) Exam Narrative: PHYSICAL EXAMINATION: General physical exam: Well-developed, well-nourished, and in no acute distress. Vital signs: Please see the chart. Head/eyes: Atraumatic, EOMI, PERRLA. ENT: Moist mucous membranes, nasal passages clear. Neck: Supple, full range of motion, trachea midline. CVS: S1 + S2 + 0, regular rate and rhythm, no murmurs Respiratory: Bilaterally decreased air entry in both lung portillo, mild B/L crackles, symmetric expansion of chest, no distress Abdomen: Soft, non-tender, bowel sounds +ve, no organomegaly. Extremities: No clubbing, no cyanosis, no edema, no calf tenderness Musculoskeletal: Moves all, decreased range of motion, no muscle spasms Skin: Warm, dry
[2023-01-05 20:26] LABS: Hematocrit 26.9 % (42.0-52.0); Hemoglobin 7.9 g/dL (14.0-18.0)
[2023-01-05] MEDS: ATORVASTATIN 20 MG TABLET PO (20:31)
[2023-01-05] MEDS: SERTRALINE HCL 50 MG TABLET PO (20:31)
[2023-01-05] MEDS: SENNOSIDES 8.6 MG TABLET PO (20:31)
[2023-01-06] VITALS (7 sets, daily range): BP systolic 100–135; BP diastolic 58–81; PULSE 70–83; RESP 16–20; TEMP 36.2–37.3; O2SAT 90–98
[2023-01-06 05:15] LABS: Red Blood Cell Folate >1000 ng/mL RBC (>280)
[2023-01-06] MEDS: LEVOTHYROXINE SODIUM 75 MCG TABLET PO (05:29)
[2023-01-06 06:25] LABS: Hematocrit 25.9 % (42.0-52.0); Hemoglobin 7.6 g/dL (14.0-18.0); Mean Corpuscular HGB Conc 29.3 g/dl (32-36); Mean Corpuscular Hemoglobin 29.5 pg (26-34); Mean Corpuscular Volume 100.4 fl (80-100); Mean Platelet Volume 10.1 fl (7.4-10.4); Platelet Count Result 239 k/mm3 (150-375); Red Blood Count 2.58 M/mm3 (4.6-6.20); Red Cell Distribution Width 18.9 % (11.5-14.5); White Blood Count 5.3 K/mm3 (4.5-10.0)
[2023-01-06 06:35] LABS: Anion Gap 0 mmol/L (8-16); Blood Urea Nitrogen 18 mg/dL (9-20); Calcium 7.2 mg/dL (8.4-10.2); Carbon Dioxide 34 mmol/L (22-30); Chloride 97 mmol/L (98-107); Estimated CRCL calculation 71 ml/min; Estimated Glomerular Filt Rate > 60; Glucose 101 mg/dL (65-110); Potassium 3.9 mmol/L (3.4-5.0); Sodium 131 mmol/L (137-145)
[2023-01-06] MEDS: FLUTICASONE PROPIONATE 0.05% NA SPR 16 GM BTL (*BKC) 2 SPRAY NASAL (08:03)
[2023-01-06] MEDS: CYANOCOBALAMIN 1,000 MCG TABLET 1000 MCG PO (08:04)
[2023-01-06] MEDS: POTASSIUM CHLORIDE 20 MEQ ER TABLET PO (08:04)
[2023-01-06] MEDS: FOLIC ACID 1 MG TABLET PO (08:04)
[2023-01-06] MEDS: FUROSEMIDE 20 MG TABLET PO (08:05)
[2023-01-06] MEDS: FLUTICASONE/UMECLIDIN/VILANTER 100-62.5-25 MCG ELLIPTA 1 PUFF INHALATION (08:05)
[2023-01-06] MEDS: DOCUSATE SODIUM 100 MG CAPSULE PO ×2 (08:05→20:24)
[2023-01-06] MEDS: DUTASTERIDE 0.5 MG CAPSULE PO (08:05)
[2023-01-06] MEDS: PANTOPRAZOLE 40 MG TABLET PO ×2 (08:05→20:24)
[2023-01-06] MEDS: ACETAMINOPHEN 500 MG TABLET PO (08:05)
[2023-01-06] MEDS: CALCIUM CARBONATE (TUMS) 500 MG (200 MG ELEMENTAL) PO (08:05)
[2023-01-06] MEDS: oxyCODONE HCL (*CRX) 5 MG TAB IR PO ×3 (08:06→20:27)
[2023-01-06] MEDS: LIDOCAINE 5% PATCH 1 PATCH TOPICAL (08:09)
[2023-01-06] MEDS: MAGNESIUM HYDROXIDE SUSP 30 ML UDC PO (09:58)
[2023-01-06 11:47] LABS: Methylmalonic Acid 194 nmol/L (87-318)
--- NOTE | 2023-01-06 14:22 | PM.IMPN ---
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 He had routine labs done on 01/01/2023 and his hemoglobin was found to be 6. He underwent colonoscopy 2 years ago by GI doctor at [facility] without obvious finding. He does take anticoagulants. He was also saturating 80s and had to be increased to 4 L. Reported fatigue and exertional dyspnea. He is on apixaban and aspirin at home hemoglobin in the ER was 5.8 macrocytic. Hemoccult was positive INR 1.2. Was admitted for further evaluation and management. He underwent transfusion of packed red blood cell. Chest x-ray with small lung volumes with airspace opacity in the mid and lower lung zones with basilar predominance. Consistent with atelectasis versus pneumonia. Interstitial pattern in the lungs consistent with mild pulmonary edema versus chronic interstitial lung disease. Small right pleural effusion and cardiomegaly. Pacemaker in left chest wall in situ. Is started on diuresis. For his macrocytic anemia hematology and GI has been consulted. He is on B12 replacement therapy. No overt bleeding but 2 EGDs in the past with some cauterization. Records to be obtained. He has history of atrial fibrillation on anticoagulation for that. Hematology has been consulted and with macrocytosis his been evaluated with bone marrow biopsy. 01/05/2023: spoke with both the patient and the daughter in detail. His last colonoscopy was 4 years ago and had 2 EGDs, last 1 was about a year ago. Patient to be followed up closely by GI on Saturday. I ordered 1 unit of packed RBCs as hemoglobin was 6.6. Repeat H&H later on today. Encourage ambulation. 01/06/2023: hemoglobin stable today at 7.6. No major issues. awaiting GI evaluation in a.m. Encouraged patient to ambulate. ? Patient seen and examined at bedside during my morning rounds ? Collaborated with patient's nurse at the bedside in detail and addressed all concerns ? Labs, electrolytes, radiology, investigations and test results reviewed ? Consult notes on the case reviewed and appreciated ? Spoke with patient/family at the bedside and answered all the questions that they had Repeat labs in a.m. Electrolyte replacement as per protocol. Patient will be monitored very closely on the floor. Further recommendations as per the hospital course. Subjective Date/time seen: 01/06/23 14:22 Interval history: 01/04/2023: Pt is working with the therapy this morning. Reports right knee pain. Denies any other complaints. Labs were reviewed. Remains afebrile. Shortness of breath with exertion. 01/05/2023: patient seen and evaluated at the bedside. He feels tired and fatigued. Hemoglobin was 6.6 hence 1 unit of packed RBCs ordered. spoke with patient and daughter in detail about his GI workup. 01/06/2023: patient lying in bed on my morning rounds. No major issues at this time. He is awaiting GI evaluation in the morning. Hemoglobin is stable at 7.6. I am signing off. Patient's medical care will be taken over by my covering hospitalist attending, Dr. Alexandro Calderon, in am. Review of Systems Review of Systems: All systems reviewed & are unremarkable except as noted in HPI and below (the history and physical exam.) Exam Narrative: PHYSICAL EXAMINATION: General physical exam: Well-developed, well-nourished, and in no acute distress. Vital signs: Please see the chart. Head/eyes: Atraumatic, EOMI, PERRLA. ENT: Moist mucous membranes, nasal passages clear. Neck: Supple, full range
[2023-01-06] MEDS: SERTRALINE HCL 50 MG TABLET PO (20:24)
[2023-01-06] MEDS: SENNOSIDES 8.6 MG TABLET PO (20:24)
[2023-01-06] MEDS: ATORVASTATIN 20 MG TABLET PO (20:24)
[2023-01-07 05:25] VITALS: BP 132/66; PULSE 62; RESP 16; TEMP 36.3; O2SAT 96
[2023-01-07] MEDS: LEVOTHYROXINE SODIUM 75 MCG TABLET PO (05:32)
[2023-01-07 06:36] LABS: Hematocrit 25.2 % (42.0-52.0); Hemoglobin 7.3 g/dL (14.0-18.0); Mean Corpuscular Hemoglobin 28.7 pg (26-34); Mean Corpuscular Volume 99.2 fl (80-100); Mean Platelet Volume 10.3 fl (7.4-10.4); Platelet Count Result 213 k/mm3 (150-375); Red Blood Count 2.54 M/mm3 (4.6-6.20); Red Cell Distribution Width 18.5 % (11.5-14.5)
[2023-01-07 06:47] LABS: Anion Gap 0 mmol/L (8-16); Blood Urea Nitrogen 18 mg/dL (9-20); Calcium 7.2 mg/dL (8.4-10.2); Carbon Dioxide 37 mmol/L (22-30); Chloride 96 mmol/L (98-107); Estimated CRCL calculation 80 ml/min; Estimated Glomerular Filt Rate > 60; Glucose 89 mg/dL (65-110); Sodium 133 mmol/L (137-145)
[2023-01-07 08:01] VITALS: PULSE 67; RESP 18; O2SAT 94
[2023-01-07] MEDS: FLUTICASONE/UMECLIDIN/VILANTER 100-62.5-25 MCG ELLIPTA 1 PUFF INHALATION (08:01)
[2023-01-07 09:00] VITALS: O2SAT 94
[2023-01-07] MEDS: CALCIUM CARBONATE (TUMS) 500 MG (200 MG ELEMENTAL) PO (09:00)
[2023-01-07] MEDS: PANTOPRAZOLE 40 MG TABLET PO ×2 (09:00→20:51)
[2023-01-07] MEDS: DUTASTERIDE 0.5 MG CAPSULE PO (09:00)
[2023-01-07] MEDS: POTASSIUM CHLORIDE 20 MEQ ER TABLET PO (09:00)
[2023-01-07] MEDS: FLUTICASONE PROPIONATE 0.05% NA SPR 16 GM BTL (*BKC) 2 SPRAY NASAL (09:01)
[2023-01-07] MEDS: DOCUSATE SODIUM 100 MG CAPSULE PO ×2 (09:01→20:51)
[2023-01-07] MEDS: LIDOCAINE 5% PATCH 1 PATCH TOPICAL (09:01)
[2023-01-07] MEDS: FOLIC ACID 1 MG TABLET PO (09:01)
[2023-01-07] MEDS: FUROSEMIDE 20 MG TABLET PO (09:01)
[2023-01-07] MEDS: CYANOCOBALAMIN 1,000 MCG TABLET 1000 MCG PO (09:01)
[2023-01-07] MEDS: oxyCODONE HCL (*CRX) 5 MG TAB IR PO ×2 (10:02→21:01)
--- NOTE | 2023-01-07 12:39 | PCPTNOTE ---
Patient refused treatment this session stating he has been up already today and just finished OT treatment. Patient states I am not getting back out of this bed today! Patient states he is upset because he does not know what is going on with his medical treatment.
[2023-01-07 13:49] VITALS: BP 150/74; PULSE 71; RESP 18; TEMP 35.8; O2SAT 100
--- NOTE | 2023-01-07 13:50 | P.CDI_ITS ---
CDI Query Clarification Request Documented history of CHF. CHF noted in the assessment and plan. Lasix listed as a home medication. Patient receiving Lasix. Presented with an increased O2 demand. Requiring an increase from 2L NC to 4 L NC, Patient also with complaints of dyspnea. Please specify type and acuity of heart failure if known. * Acute * Chronic * Acute on Chronic * Unknown * Systolic * Diastolic * Combined Systolic and Diastolic * Unknown <Radha Wheat RN - Last Filed: 01/07/23 13:54> Provider Comments Acute on chronic diastolic heart failure <Alexandro Claudio MD - Last Filed: 01/08/23 13:45>
--- NOTE | 2023-01-07 17:49 | PM.IMPN ---
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 He had routine labs done on 01/01/2023 and his hemoglobin was found to be 6. He underwent colonoscopy 2 years ago by GI doctor at [facility] without obvious finding. He does take anticoagulants. He was also saturating 80s and had to be increased to 4 L. Reported fatigue and exertional dyspnea. He is on apixaban and aspirin at home hemoglobin in the ER was 5.8 macrocytic. Hemoccult was positive INR 1.2. Was admitted for further evaluation and management. He underwent transfusion of packed red blood cell. Chest x-ray with small lung volumes with airspace opacity in the mid and lower lung zones with basilar predominance. Consistent with atelectasis versus pneumonia. Interstitial pattern in the lungs consistent with mild pulmonary edema versus chronic interstitial lung disease. Small right pleural effusion and cardiomegaly. Pacemaker in left chest wall in situ. Is started on diuresis. For his macrocytic anemia hematology and GI has been consulted. He is on B12 replacement therapy. No overt bleeding but 2 EGDs in the past with some cauterization. Records to be obtained. He has history of atrial fibrillation on anticoagulation for that. Hematology has been consulted and with macrocytosis his been evaluated with bone marrow biopsy. 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 Reports right knee pain. Denies any other complaints. Labs were reviewed. Remains afebrile. Shortness of breath with exertion. 01/05/2023: patient seen and evaluated at the bedside. He feels tired and fatigued. Hemoglobin was 6.6 hence 1 unit of packed RBCs ordered. spoke with patient and daughter in detail about his GI workup. 01/06/2023: patient lying in bed on my morning rounds. No major issues at this time. He is awaiting GI evaluation in the morning. Hemoglobin is stable at 7.6. 01/07/2023: No overnight events. Labs reviewed. No issues. He did transfusion again on 01/05/2023. Review of Systems Review of Systems: All systems reviewed & are unremarkable except as noted in HPI and below (the history and physical exam.) Exam Narrative: Head/eyes: Atraumatic, EOMI, PERRLA. ENT: Moist mucous membranes, nasal passages clear. Neck: Supple, full range of motion, trachea midline. CVS: S1 + S2 + 0, regular rate and rhythm, no murmurs Respiratory: Bilaterally decreased air entry in both lung portillo, mild B/L crackles, symmetric expansion of chest, no distress Abdomen: Soft, non-tender, bowel sounds +ve, no organomegaly. Extremities: No clubbing, no cyanosis, no edema, no calf tenderness Musculoskeletal: Moves all, decreased range of motion, no muscle spasms Skin: Warm, dry, no jaundice, no cyanosis, + pallor Neurological: Awake, alert, oriented x 3, cranial nerves II-XII intact, no focal neurological deficits. Psychiatric: Normal mood, non suicidal. Objective Data Vital Signs Vital Signs: Vital Signs - 24 hr 01/06/23 21:13 01/06/23 20:00 01/07/23 05:25 Temperature 97.2 F L 97.4 F L Pulse Rate 70 62 Respiratory Rate 16 16 Blood Pressure 100/81 132/66 Pulse Oximetry 98 94
--- NOTE | 2023-01-07 18:09 | PC.NURSE ---
Pt has been A&O4 and participating and contributing in plan of care. Pt tolerated therapy well. Mepitel one was placed over 2 spots on pt left arm due to skin tears. Pt was restarted on heart healthy diet. Will continue to monitor pt.
[2023-01-07] MEDS: SENNOSIDES 8.6 MG TABLET PO (20:51)
[2023-01-07] MEDS: ATORVASTATIN 20 MG TABLET PO (20:51)
[2023-01-07] MEDS: SERTRALINE HCL 50 MG TABLET PO (20:51)
[2023-01-07 22:00] VITALS: BP 119/64; PULSE 74; RESP 18; TEMP 37.4; O2SAT 97
[2023-01-08] VITALS (9 sets, daily range): BP systolic 103–142; BP diastolic 58–85; PULSE 65–79; RESP 16–27; TEMP 35.7–36.8; O2SAT 92–100
[2023-01-08] MEDS: LEVOTHYROXINE SODIUM 75 MCG TABLET PO (05:52)
[2023-01-08 06:26] LABS: Hematocrit 27.2 % (42.0-52.0); Hemoglobin 7.9 g/dL (14.0-18.0); Mean Corpuscular Hemoglobin 29.4 pg (26-34); Mean Corpuscular Volume 101.1 fl (80-100); Mean Platelet Volume 9.9 fl (7.4-10.4); Platelet Count Result 222 k/mm3 (150-375); Red Blood Count 2.69 M/mm3 (4.6-6.20); Red Cell Distribution Width 18.3 % (11.5-14.5); White Blood Count 5.1 K/mm3 (4.5-10.0)
[2023-01-08 06:33] LABS: Anion Gap 0 mmol/L (8-16); Blood Urea Nitrogen 17 mg/dL (9-20); Calcium 7.6 mg/dL (8.4-10.2); Carbon Dioxide 37 mmol/L (22-30); Chloride 97 mmol/L (98-107); Estimated CRCL calculation 71 ml/min; Estimated Glomerular Filt Rate > 60; Glucose 89 mg/dL (65-110); Magnesium 2.3 mg/dL (1.6-2.3); Potassium 4.1 mmol/L (3.4-5.0); Sodium 134 mmol/L (137-145)
--- NOTE | 2023-01-08 06:48 | WPDGIPROGNO ---
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 MCV is quite elevated at over 111. He had been started on B12 but does not know when. He is fairly certain that he has not seen a multiple wire sawyer. (2) GI bleed: Qualifiers: GI bleed type/associated pathology: unspecified gastrointestinal hemorrhage type Qualified Code(s): K92.2 - Gastrointestinal hemorrhage, unspecified Code(s): K92.2 - Gastrointestinal hemorrhage, unspecified Status: Acute Assessment and Plan: Although he has a Hemoccult-positive stool, he has not her road overt bleeding. He had 2 EGDs earlier this year at that time something was cauterized. 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 I will get the records from [facility]. 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 Because he has could be recurrent I will go ahead scheduled for an EGD to be done today (3) Status post placement of cardiac pacemaker: Code(s): Z95.0 - Presence of cardiac pacemaker Status: Acute Assessment and Plan: He states that he had atrial flutter and was on an anticoagulant but he states that when the pacemaker was put in he had a coagulant therapy was discontinued. Then, after he thought about it further, he thinks maybe he was placed on Eliquis at the same time as the pacer was inserted. Nevertheless he is fairly certain that he does not take it at this time. Plan Will await records from other hospitals due to the fact that it seems that his anemia had been thoroughly investigated already. He certainly does not have microcytic indices that would be suggestive of gastrointestinal blood loss. He perhaps ought to be seen by Hematology 01/09/2020 EGD today Subjective Date/time seen: 01/08/23 06:48 his hemoglobin dropped to 6.6 over the weekend. We do now have more information regarding his endoscopic procedures done elsewhere. He apparently had AVMs in the stomach that were cauterized when he had his EGD at [facility] 6 or 7 months ago. A couple years ago an EGD showed nonbleeding duodenal AVMs given that these could be recurrent I will schedule for an EGD to be done today. Exam Const: General: cooperative, healthy appearing and obese Nutritional Appearance: obese Orientation/consciousness: patient oriented x3 HENMT: Head: normal to inspection Ears: hearing grossly normal bilaterally Mouth: Yes Normal oral and palatal mucosa present Eyes: General: appearance normal, both eyes and all related structures Neck: Neck: normal visual inspection Chest: Chest palpation & inspection: normal inspection of the chest Resp: Effort & Inspection: normal respiratory effort Auscultation: clear to auscultation bilaterally Cardio: Rate: regular rate Rhythm: regular rhythm GI: Inspection: normal to inspection GI Palp: No abdominal tenderness and Yes Soft to palpation Auscultation: normal bowel sounds Skin: General skin exam: normal color and no jaundice Neuro: General: patient oriented x3 Speech: normal speech Objective Data Vital Signs Vital Signs: Vital Signs - 24 hr 01/07/23 08:01 01/07/23 08:01 01/07/23 09:00 Temperature Pulse Rate 67 67 Respiratory Rate 18 18 Blood Pressure Pulse Oximetry 94 94 Oxygen Delivery Nasal Cannula Nasal Cannula Oxygen Flow Rate 4.5 3 Fraction of Inspired Oxygen 38 01/07/23 13:49 01/07/23 22:00 01/08/23 05:55 Temperature 35.8 C L 37.4 C 36.8 C Pulse Rate 71 74 68 Respiratory Rate 18 18 20 Blood Pressure 150/74 H 119/64 140/85 Pulse Oximetry 100 97 100 Oxygen Delivery Oxygen Flow Rate Fraction of Inspired Oxygen Intake/Output Intake/Output: Intake & Output 01/05/23 01/06/23 01/07/23 01/08/23 23:59 23:59 23:59 23:5
[2023-01-08] MEDS: FLUTICASONE/UMECLIDIN/VILANTER 100-62.5-25 MCG ELLIPTA 1 PUFF INHALATION (08:44)
[2023-01-08] MEDS: LIDOCAINE 5% PATCH 1 PATCH TOPICAL (09:45)
[2023-01-08] MEDS: LACTATED RINGERS 1,000 ML 150 ML IV CONT (11:02)
--- NOTE | 2023-01-08 11:08 | WPDANESEPPF ---
Anes - Initial Pre Proc Eval Procedure: Operation Date: 01/03/23 08:30 Proposed Procedures p Bone Aspiration + Biopsy - Matthias Peñaloza MD Operation Date: 01/08/23 13:00 Proposed Procedures p Esophagogastroduodenoscopy - Kash Banuelos MD Date/Time: 01/08/23 11:08 Surgeon: Alexandro Claudio MD Pre Op Diagnosis: Anemia Patient Data Age: 87 Gender: M Height: 1.85 m Weight: 104.7 kg Last Vital Signs Temp 98.2 F 01/08/23 05:55 Pulse 66 01/08/23 08:46 Resp 18 01/08/23 08:46 BP 140/85 01/08/23 05:55 Pulse Ox 97 01/08/23 08:46 O2 Del Method Nasal Cannula 01/08/23 08:46 O2 Flow Rate 4.5 01/08/23 08:46 FiO2 38 01/08/23 08:46 Allergies Allergy/AdvReac Type Severity Reaction Status Date / Time No Known Allergies Allergy Verified 01/08/23 11:08 Home Medications Medication Instructions Recorded Confirmed Type Pro-Stat AWC 17 g PO DAILY 01/02/23 01/02/23 History Vitamin D2 1,250 mcg PO WEEKLY 01/02/23 01/02/23 History acetaminophen 500 mg PO QID PRN Pain, Mild 01/02/23 01/08/23 History albuterol sulfate 90 mcg/actuation 2 puff inhalation TID PRN 01/02/23 01/08/23 History aerosol inhaler Shortness Of Breath Or Wheezing aluminum-magnesium hydroxide 30 ml BYMOUTH QID PRN Gastric 01/02/23 01/08/23 History Reflux apixaban 5 mg tablet (Eliquis) 5 mg PO BID 01/02/23 01/08/23 History aspirin 81 mg tablet 81 mg PO DAILY 01/02/23 01/08/23 History atorvastatin 20 mg tablet 20 mg PO HS 01/02/23 01/02/23 History calcium carbonate 1 tablet PO DAILY 01/02/23 01/02/23 History cyanocobalamin (vitamin B-12) 1,000 mcg PO DAILY 01/02/23 01/02/23 History 1,000 mcg tablet docusate sodium 100 mg capsule 100 mg PO BID 01/02/23 01/02/23 History dutasteride 0.5 mg capsule 0.5 mg PO DAILY 01/02/23 01/02/23 History ferrous sulfate 325 mg (65 mg 325 mg PO BID 01/02/23 01/02/23 History iron) tablet fluticasone fur. 100 mcg-umeclid 1 inh inhalation DAILY 01/02/23 01/02/23 History 62.5 mcg-vilant 25 mcg inhalat.powder (Trelegy Ellipta) fluticasone propionate 50 2 spray intranasal DAILY 01/02/23 01/02/23 History mcg/actuation nasal spray,suspension folic acid 1 mg tablet 1 mg PO DAILY 01/02/23 01/02/23 History furosemide 20 mg tablet 20 mg PO DAILY 01/02/23 01/02/23 History furosemide 40 mg tablet 40 mg PO DAILY 01/02/23 01/02/23 History levothyroxine 100 mcg PO DAILY 01/02/23 01/02/23 History lidocaine 5 % topical patch 1 patch topical DAILY 01/02/23 01/02/23 History magnesium hydroxide 400 mg PO DAILY PRN Constipation 01/02/23 01/02/23 History ondansetron 4 mg disintegrating 4 mg PO Q4H PRN Nausea And Vomiting 01/02/23 01/02/23 History tablet oxycodone 5 mg tablet 5 mg PO Q4H PRN pain 7-10 01/02/23 01/02/23 History pantoprazole 40 mg PO BID 01/02/23 01/02/23 History potassium chloride 20 meq PO DAILY 01/02/23 01/02/23 History senna 8.6 mg PO HS 01/02/23 01/02/23 History sertraline 50 mg PO HS 01/02/23 01/02/23 History Laboratory Tests 01/08/23 05:36 WBC 5.1 K/mm3 (4.5-10.0) RBC 2.69 L M/mm3 (4.6-6.20) Hgb 7.9 L g/dL (14.0-18.0) Hct 27.2 L % (42.0-52.0) MCV 101.1 H fl (80-100) MCH 29.4 pg (26-34) MCHC 29.0 L g/dl (32-36) RDW 18.3 H % (11.5-14.5) Plt Count 222 k/mm3 (150-375) MPV 9.9 fl (7.4-10.4) Sodium 134 L mmol/L (137-145) Potassium 4.1 mmol/L (3.4-5.0) Chloride 97 L mmol/L (98-107) Carbon Dioxide 37 H mmol/L (22-30) Anion Gap 0 L mmol/L (8-16) BUN 17 mg/dL (9-20) Creatinine 0.80 mg/dL (0.7-1.3) Estim Creat Clear Calc 71 ml/min Estimated GFR > 60 (59 - ) Glucose 89 mg/dL (65-110) Calcium 7.6 L mg/dL (8.4-10.2) Magnesium 2.3 mg/dL (1.6-2.3) Patient hx anesthesia problems: none Family hx anesthesia problems: none Results Review: All pre-operative results and documents have been reviewed as part of the pre-operative evaluation.
[2023-01-08] MEDS: SIMETHICONE ORAL SUSPENSION 20 MG/0.3 ML 30 ML BOTTLE 0.6 ML PO (11:34)
--- NOTE | 2023-01-08 12:14 | PCPTNOTE ---
The patient treatment was not able to be completed this A.M. due to patient out of room for testing. Will plan to continue treatment per plan of care.
[2023-01-08] MEDS: PANTOPRAZOLE 40 MG TABLET PO ×2 (12:29→20:30)
[2023-01-08] MEDS: CALCIUM CARBONATE (TUMS) 500 MG (200 MG ELEMENTAL) PO (12:29)
[2023-01-08] MEDS: POTASSIUM CHLORIDE 20 MEQ ER TABLET PO (12:30)
[2023-01-08] MEDS: FOLIC ACID 1 MG TABLET PO (12:30)
[2023-01-08] MEDS: DUTASTERIDE 0.5 MG CAPSULE PO (12:30)
[2023-01-08] MEDS: DOCUSATE SODIUM 100 MG CAPSULE PO ×2 (12:30→20:30)
[2023-01-08] MEDS: FUROSEMIDE 20 MG TABLET PO (12:30)
[2023-01-08] MEDS: FLUTICASONE PROPIONATE 0.05% NA SPR 16 GM BTL (*BKC) 2 SPRAY NASAL (12:31)
[2023-01-08] MEDS: CYANOCOBALAMIN 1,000 MCG TABLET 1000 MCG PO (12:31)
[2023-01-08] MEDS: oxyCODONE HCL (*CRX) 5 MG TAB IR PO ×2 (13:08→20:29)
--- NOTE | 2023-01-08 13:40 | PM.IMPN ---
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 He had routine labs done on 01/01/2023 and his hemoglobin was found to be 6. He underwent colonoscopy 2 years ago by GI doctor at [facility] without obvious finding. He does take anticoagulants. He was also saturating 80s and had to be increased to 4 L. Reported fatigue and exertional dyspnea. He is on apixaban and aspirin at home hemoglobin in the ER was 5.8 macrocytic. Hemoccult was positive INR 1.2. Was admitted for further evaluation and management. He underwent transfusion of packed red blood cell. Chest x-ray with small lung volumes with airspace opacity in the mid and lower lung zones with basilar predominance. Consistent with atelectasis versus pneumonia. Interstitial pattern in the lungs consistent with mild pulmonary edema versus chronic interstitial lung disease. Small right pleural effusion and cardiomegaly. Pacemaker in left chest wall in situ. Is started on diuresis. For his macrocytic anemia hematology and GI has been consulted. He is on B12 replacement therapy. No overt bleeding but 2 EGDs in the past with some cauterization. Records to be obtained. He has history of atrial fibrillation on anticoagulation for that. He also had segmental PE in November 2022 while he was at [place]. Hematology has been consulted and with macrocytosis his been evaluated with bone marrow biopsy. Bone marrow biopsy report is pending. He is undergoing further GI evaluation here because of severe anemia and underwent EGD today. EGD showed reflux esophagitis grade 1 single are isolated erosion with erythema and/or exudate present in the distal esophagus. Reflux esophagitis appeared a depth of 30 cm to 38 cm from the incisors. Rather than erosions there was superficial DS commission off epithelium. The stomach at the body cardia and fundus was examined and was normal with no ulcers or masses. The bulb and 2nd portion of duodenum was normal with no ulcers or masses Endoscopy Hx: - Colonoscopy 01/2019: diverticulosis, 1 rectal polyp - EGD 03/2021: 3 non-bleeding duodenal AVMs - EGD 07/2022: several bleeding AVMs along greater curvature of stomach, cauterized with APC (Of note, we do not have actual records of these endoscopies) Subjective Date/time seen: 01/08/23 13:40 Interval history: 01/04/2023: Pt is working with the therapy this morning. Reports right knee pain. Denies any other complaints. Labs were reviewed. Remains afebrile. Shortness of breath with exertion. 01/05/2023: patient seen and evaluated at the bedside. He feels tired and fatigued. Hemoglobin was 6.6 hence 1 unit of packed RBCs ordered. spoke with patient and daughter in detail about his GI workup. 01/06/2023: patient lying in bed on my morning rounds. No major issues at this time. He is awaiting GI evaluation in the morning. Hemoglobin is stable at 7.6. 01/07/2023: No overnight events. Labs reviewed. No issues. He did transfusion again on 01/05/2023. 01/08/2023: No overnight events. H&H remains stable. No shortness of breath or chest pain. He is going for an EGD today Review of Systems Review of Systems: All systems reviewed & are unremarkable except as noted in HPI and below (the history and physical exam.) Exam Narrative: Head/eyes: Atraumatic, EOMI, PERRLA. ENT: Moist mucous membranes, nasal passages clear. Neck: Supple, full range of motion, trachea midline. CVS: S1 + S2 + 0, regular rate and rhythm, no murmurs Respiratory: Bilaterally decreased
[2023-01-08] MEDS: ATORVASTATIN 20 MG TABLET PO (20:29)
[2023-01-08] MEDS: SERTRALINE HCL 50 MG TABLET PO (20:30)
[2023-01-08] MEDS: SENNOSIDES 8.6 MG TABLET PO (20:30)
[2023-01-09 06:00] VITALS: BP 134/70; PULSE 77; RESP 18; TEMP 35.9; O2SAT 88
[2023-01-09] MEDS: LEVOTHYROXINE SODIUM 75 MCG TABLET PO (06:36)
[2023-01-09 06:57] LABS: Eosinophils Absolute Auto 0.2 K/mm3 (0-0.3); Eosinophils Percent Auto 3.2 % (0-4.4); Hemoglobin 8.1 g/dL (14.0-18.0); Immature Granulocyte Absolute 0.04 K/mm3 (0.00-0.031); Immature Granulocyte Percent A 0.8 % (0-0.5); Lymphocytes Absolute Auto 0.78 K/mm3 (0.9-3.2); Lymphocytes Percent Auto 16.4 % (18.3-44.2); Mean Corpuscular HGB Conc 28.9 g/dl (32-36); Mean Corpuscular Hemoglobin 29.1 pg (26-34); Mean Corpuscular Volume 100.7 fl (80-100); Mean Platelet Volume 10.2 fl (7.4-10.4); Monocytes Absolute Auto 0.5 K/mm3 (0.1-0.6); Monocytes Percent Auto 11.1 % (2.6-8.5); Neutrophils Absolute Auto 3.3 K/mm3 (1.3-6.7); Neutrophils Percent Auto 68.5 % (45.5-73.1); Platelet Count Result 223 k/mm3 (150-375); Red Blood Count 2.78 M/mm3 (4.6-6.20); Red Cell Distribution Width 18.3 % (11.5-14.5); White Blood Count 4.8 K/mm3 (4.5-10.0)
[2023-01-09 07:14] LABS: Alanine Aminotransferase 13 U/L (6-50); Albumin Level 2.7 g/dL (3.5-5.1); Alkaline Phosphatase 107 U/L (38-126); Anion Gap 4 mmol/L (8-16); Aspartate Amino Transferase 19 U/L (17-59); Bilirubin,Total 0.7 mg/dL (0.2-1.3); Blood Urea Nitrogen 18 mg/dL (9-20); Calcium 7.6 mg/dL (8.4-10.2); Carbon Dioxide 35 mmol/L (22-30); Chloride 98 mmol/L (98-107); Estimated CRCL calculation 71 ml/min; Estimated Glomerular Filt Rate > 60; Glucose 110 mg/dL (65-110); Magnesium 2.2 mg/dL (1.6-2.3); Potassium 3.9 mmol/L (3.4-5.0); Sodium 137 mmol/L (137-145)
[2023-01-09 07:55] LABS: Hypochromasia 2+ (NORMAL); Platelet Estimate Adequate (Adequate)
[2023-01-09 07:56] LABS: Anisocytosis 1+ (NORMAL); Schistocytes None Seen (NORMAL)
[2023-01-09] MEDS: FLUTICASONE/UMECLIDIN/VILANTER 100-62.5-25 MCG ELLIPTA 1 PUFF INHALATION (08:36)
[2023-01-09 08:38] VITALS: O2SAT 92
[2023-01-09] MEDS: CYANOCOBALAMIN 1,000 MCG TABLET 1000 MCG PO (09:33)
[2023-01-09] MEDS: FOLIC ACID 1 MG TABLET PO (09:33)
[2023-01-09] MEDS: DOCUSATE SODIUM 100 MG CAPSULE PO (09:33)
[2023-01-09] MEDS: DUTASTERIDE 0.5 MG CAPSULE PO (09:33)
[2023-01-09] MEDS: FUROSEMIDE 20 MG TABLET PO (09:33)
[2023-01-09] MEDS: CALCIUM CARBONATE (TUMS) 500 MG (200 MG ELEMENTAL) PO (09:34)
[2023-01-09] MEDS: POTASSIUM CHLORIDE 20 MEQ ER TABLET PO (09:34)
[2023-01-09] MEDS: FLUTICASONE PROPIONATE 0.05% NA SPR 16 GM BTL (*BKC) 2 SPRAY NASAL (09:34)
[2023-01-09] MEDS: LIDOCAINE 5% PATCH 1 PATCH TOPICAL (09:34)
[2023-01-09] MEDS: PANTOPRAZOLE 40 MG TABLET PO (10:00)
--- NOTE | 2023-01-09 10:17 | WPDANESPN ---
Anes - Prog Note Post-Op Date/Time: 01/09/23 10:17 Cardiovascular status: normal Respiratory status: normal Airway patency: baseline Mental status: baseline Post-Op hydration status: normal Vital Signs: Last Vital Signs Temp 35.9 C L 01/09/23 06:00 Pulse 77 01/09/23 06:00 Resp 18 01/09/23 06:00 BP 134/70 01/09/23 06:00 Pulse Ox 92 01/09/23 08:38 O2 Del Method Nasal Cannula 01/09/23 08:38 O2 Flow Rate 3 01/09/23 08:38 FiO2 38 01/08/23 08:46 Pain Score (VAS): 0 I/O: Intake & Output 01/08/23 01/09/23 01/09/23 23:59 07:59 15:59 Intake Total 240 200 Output Total 1000 250 Balance -760 -50 Laboratory Tests 01/09/23 06:32 01/09/23 06:32 01/09/23 06:32 WBC 4.8 RBC 2.78 L Hgb 8.1 L Hct 28.0 L MCV 100.7 H MCH 29.1 MCHC 28.9 L RDW 18.3 H Plt Count 223 MPV 10.2 Immature Gran % (Auto) 0.8 H Neut % (Auto) 68.5 Lymph % (Auto) 16.4 L Buchanan % (Auto) 11.1 H Eos % (Auto) 3.2 Baso % (Auto) 0.0 L Lymph # (Auto) 0.78 L Buchanan # (Auto) 0.5 Eos # (Auto) 0.2 Baso # (Auto) 0.0 Abs Immat Gran (auto) 0.04 H Absolute Neuts (auto) 3.3 Absolute Nucleated RBC 0.0 Nucleated RBC % 0.0 Platelet Estimate Adequate Hypochromasia 2+ Anisocytosis 1+ Schistocytes None seen Sodium 137 Potassium 3.9 Chloride 98 Carbon Dioxide 35 H Anion Gap 4 L BUN 18 Creatinine 0.80 Estim Creat Clear Calc 71 Estimated GFR > 60 Glucose 110 Calcium 7.6 L Magnesium 2.2 Total Bilirubin 0.7 AST 19 ALT 13 Alkaline Phosphatase 107 Total Protein 6.0 L Albumin 2.7 L Post-procedural complaints: none Patient Feedback: Patient satisfied with anesthetic care.
--- NOTE | 2023-01-09 11:08 | PM.DS ---
DS: Admitting Diagnosis Discharge Date 01/09/2023 Admitting Diagnosis Megaloblastic anemia History of congestive heart failure systolic History of pacemaker DS: Discharge Diagnosis Discharge Diagnosis Plan Megaloblastic anemia History of congestive heart failure systolic History of pacemaker DS: Summary Hospital Course Reason for hospitalization: Anemia Hospital Course: This is an 87-year-old male with past medical history significant for congestive heart failure, history of femur fracture, hypertension, hypothyroidism patient has pacemaker implanted.? [facility] is a [facility] was brought for evaluation after routine lab work showed a hemoglobin of 5.8.? Patient states that his stools are black for the last several weeks has had colonoscopies done in the recent past, patient denies any hematemesis or coffee-ground emesis, has had swelling of the legs and arms, denies lightheadedness, dizziness, syncope or near-syncope, no chest pain, no fevers, no chills, no nausea, no vomiting no diarrhea.? Preliminary workup in the emergency room hemoglobin was 5.8, hematocrit 21, MCV 111, at this time iron studies are pending.? Patient is been admitted for further evaluation management and treatment.? Patient was admitted in the hospital. Patient was given blood. Hemoglobin was stabilized. Patient did not have any other complication during the stay in the hospital. Today patient is feeling better patient was transferred to shelter facility for rehab. Will follow the [facility] shelter facility next week. Time Spent with Patient Time attestation: Total time spent providing and/or coordinating discharge services: Exam Narrative: General: comfortab le, no acute distr ess, well develope d, alert, awake, i ll appearing and e dematous? Nutritio nal Appearance: ed ematous? Orientati on/consciousness: patient oriented x 3 HENMT:?? Head: normal to in spection, normocep halic and atraumat ic? Ears: hearing grossly normal yaniqeu aterally? Face/Nos e/Sinus: normal fa cial exam? Face an d sinus: normal fa cial exam Eyes:?? General: appearanc e normal, both eye s and all related structures? Pupils : Equal, round and reactive pupils p resent? EOM: EOMs intact bilaterally Neck:?? Neck: full ROM, no lymphadenopathy a nd no JVD? Thyroid : thyroid normal? Lymphatic: no lymp hadenopathy noted Resp:?? Effort & Inspectio n: normal respirat ory effort and abl e to speak in comp lete sentences? Au scultation: clear to auscultation bi laterally Cardio:?? Jugular venous dis tension: no JVD? R ate: regular rate? Rhythm: regular r hythm? Heart sound s: S1 normal heart sound present and S2 normal heart s ound present GI:?? Inspection: normal to inspection? GI Palp: Yes Soft to palpation and Yes No hepatosplenome leonor present :?? General: Yes defer red Skin:?? Rashes: no rashes? Wounds: wounds no mitzi (skin tear yanique ate
[2023-01-09] MEDS: oxyCODONE HCL (*CRX) 5 MG TAB IR PO ×2 (11:09→16:12)
[2023-01-09 14:00] VITALS: BP 99/79; PULSE 78; RESP 22; TEMP 36.1; O2SAT 90
[2023-01-09 14:06] LABS: SARS-CoV-2 RNA PCR Negative (Negative)
[2023-01-09] MEDS: NEOMYCIN/POLYMYXIN/BACITRACIN OINTMENT PACKET 1 PACKET (16:12)
== END 2023-01-09 17:15 | DRG 811 ==
LOC: ANHED 01-02 00:21 → ANH3MEDSUR 01-02 00:54
PROVIDERS: Family Medicine; Internal Medicine; Internal Medicine Gastroenterology; Internal Medicine Hematology & Oncology; Radiology Diagnostic Radiology; Admitting Provider Internal Medicine; Emergency Provider Preventive Medicine Aerospace Medicine; Visit Provider Internal Medicine
PROC: 079T3ZX Drainage of Bone Marrow, Percutaneous Approach, Diagnostic (ICD-10-PCS; principal; 2023-01-03 08:30)
PROC: 0DJ08ZZ Inspection of Upper Intestinal Tract, Via Natural or Artificial Opening Endoscopic (ICD-10-PCS; CPT 43235; principal; 2023-01-08 13:00)
DX: D53.1 Other megaloblastic anemias, not elsewhere classified (principal); I50.33 Acute on chronic diastolic (congestive) heart failure; I48.20 Chronic atrial fibrillation, unspecified; I11.0 Hypertensive heart disease with heart failure; E03.9 Hypothyroidism, unspecified; K21.00 Gastro-esophageal reflux disease with esophagitis, without bleeding; R09.02 Hypoxemia; Z20.822 Contact with and (suspected) exposure to COVID-19; Z95.0 Presence of cardiac pacemaker; Z79.01 Long term (current) use of anticoagulants; Z79.82 Long term (current) use of aspirin
CPT/HCPCS: 36415; 36430; 38222; 71045; 80048; 80053; 82607; 82747; 83540; 83550; 83735; 83921; 85014; 85018; 85025; 85027; 85610; 85730; 86850; 86900; 86901; 86923; 87635; 88184; 88185; 88305; 88311; 88313; 88341; 88342; 94640; 96361; 96374; 96375; 97110; 97161; 97165; 97530; 99285; A9270; G0378; J0612; J1642; J1940; J2704; J7040; J7050; J7120; P9016

== ENCOUNTER 2023-01-25 08:59 | Outpatient (RCR) | payer MEDICARE, SELFPAY ==
[2023-01-25] VITALS (11 sets, daily range): BP systolic 119–149; BP diastolic 50–76; PULSE 67–76; RESP 16–20; TEMP 36.4–37; O2SAT 89–100
[2023-01-25 10:04] LABS: Hematocrit 24.3 % (42.0-52.0)
== END 2023-04-25 23:59 | disposition home or self-care (01) ==
LOC: ANHCPCTRAN 08:59
PROVIDERS: Visit Provider Nurse Practitioner Family
DX: D64.9 Anemia, unspecified (principal)
CPT/HCPCS: 36415; 36430; 85014; 85018; 86850; 86900; 86901; 86923; P9016

== ENCOUNTER 2023-01-30 20:39 | Inpatient (IN) | payer MEDICARE, SELFPAY ==
--- NOTE | ~2023-01-30 | XR_ITS ---
XR chest 1V portable 02/03/2023 05:42 Indication: Shortness of breath Procedure: AP portable chest Comparison: 01/30 and 01/02/2023 Findings: Cardiomegaly. Stable bilateral airspace disease with shallow inspiration. Pacemaker leads a re stable. No significant effusion or pneumothorax. Impression: 1: Stable bilateral airspace disease which may represent edema or pneumonia. 2: Cardiomegaly. Reviewed, dictated and finalized at location A. Impression: 1: Stable bilateral airspace disease which may represent edema or pneumonia. 2: Cardiomegaly.
--- NOTE | ~2023-01-30 | XR_ITS ---
XR chest 1V portable DATE: 01/30/2023 21:25 INDICATION: Dyspnea. History of congestive heart failure, hypertension. TECHNIQUE: Portable AP chest on 01/30/2023 2119 hours COMPARISON: 01/02/2023 portable AP chest at 0050 hours FINDINGS: Left dual-lead pacemaker device. The cardiac margins are obscured; evaluation of heart size is limited. There is aortic calcification. There are patchy infiltrates scattered throughout both lungs, most prominent in the mid and particula rly lower lung zones. Mild blunting of the costophrenic angles may indicate mild pleural effusions. Prominence of minor fis sure suggesting subpleural edema. There is pulmonary vascular redistribution suggesting pulmonary dirk ous hypertension. Diffuse osteopenia. Bilateral chronic rotator cuff atrophy. IMPRESSION: Limited single portable view suggesting congestive changes. Bilateral pulmonary infiltrat e may be due to pulmonary edema, pneumonia and/or aspiration Reviewed, dictated and finalized at location A. IMPRESSION: Limited single portable view suggesting congestive changes. Bilater al pulmonary infiltrate may be due to pulmonary edema, pneumonia and/or aspirat ion
--- NOTE | ~2023-01-30 | CT_ITS ---
EXAMINATION: CTA chest PE protocol DATE: 01/30/2023 22:54 INDICATION: Hypoxia. Recent surgery. TECHNIQUE: Computed tomography angiography (CTA) of the chest was performed with 100 mL Omnipaque-350 intravenous contrast timed to evaluate the pulmonary arteries. Coronal maximum intensity projection 3D-reconstructions were created by the technologist. Automated exposure control and iterative reconst ruction technique were employed. Exam dose: 717.07 mGy-cm total exam DLP. COMPARISON: 01/30/2023 portable AP chest FINDINGS: There is diagnostic contrast enhancement of the pulmonary arteries and no evidence of pulmo nary embolism. Borderline thoracic aortic diameter. Thoracic aortic, great vessel and coronary artery calcifications . Right atrial and right ventricular pacemaker leads in expected position. No pericardial effusion. No hilar or mediastinal mass lesion or lymphadenopathy. There are extensive patchy bilateral upper lobe interstitial/ground glass infiltrates. Bilateral lowe r lobe primarily dependent atelectasis with air bronchograms. Multiple hepatic hypoattenuating lesions, most with near fluid attenuation, suggesting hepatic cysts. Other hepatic mass is not excluded on this CT thorax examination. Subacute healing fracture of the superomedial aspect of the right scapula. Multiple healing bilateral rib fractures. Severe degenerative disc disease in the lower cervical spine. Diffuse idiopathic skeletal hyperostosis of the thoracic spine. Likely recent mild anterior wedge compression fracture of T8. IMPRESSION: No evidence of pulmonary embolism There are extensive bilateral patchy upper lobe infiltrates and bilateral lower lobe primarily depend ent atelectasis Right scapular and multiple bilateral healing rib fractures, likely a recent T8 fracture Multiple hepatic hypoattenuating lesions Reviewed, dictated and finalized at Location A. Reviewed, dictated and finalized at location A. IMPRESSION: No evidence of pulmonary embolism There are extensive bilateral patchy upper lobe infiltrates and bilateral lower lobe primarily dependent atelectasis Right scapular and multiple bilateral healing rib fractures, likely a recent T8 fracture Multiple hepatic hypoattenuating lesions
--- NOTE | ~2023-01-30 | XR_ITS ---
XR chest 1V portable 02/04/2023 08:54 Indication: Interstitial lung disease. Pneumonia. Procedure: AP portable chest Comparison: Comparison to multiple prior studies sequentially, with oldest reviewed study dated 01/02. Findings: There is bilateral airspace disease which is increased compared with 01/02/2023, although is unchanged since 02/03/2023. Stable cardiomediastinal silhouette. Pacemaker leads are stable. No signi ficant effusion or pneumothorax. Impression: 1: Stable extensive bilateral airspace disease which may represent edema or pneumonia. Reviewed, dictated and finalized at location B. Impression: 1: Stable extensive bilateral airspace disease which may represent edema or pne umonia.
--- NOTE | ~2023-01-30 | US_ITS ---
US venous doppler [facility] DATE: 01/30/2023 21:58 INDICATION: Swelling and pain of the lower left knee. Dyspnea. TECHNIQUE: Real-time and color flow imaging and Doppler analysis of the veins of both lower extremiti es COMPARISON: None FINDINGS: The greater saphenous veins are patent. There is spontaneous and phasic flow and normal aug mentation and color flow signal and normal compression of the deep veins of both lower extremities. Bilateral lower extremity edema, left greater than right. IMPRESSION: No evidence of deep venous thrombosis of the lower extremities Reviewed, dictated and finalized at Location A. Reviewed, dictated and finalized at location A.
[2023-01-30 20:44] VITALS: BP 144/73; PULSE 78; RESP 30; TEMP 36.3; O2SAT 78
[2023-01-30 20:49] VITALS: O2SAT 96
[2023-01-30 20:52] VITALS: O2SAT 98
[2023-01-30 21:04] LABS: Basophils Percent Auto 0.2 % (0.2-1.2); Eosinophils Absolute Auto 0.1 K/mm3 (0-0.3); Eosinophils Percent Auto 2.7 % (0-4.4); Hematocrit 28.6 % (42.0-52.0); Hemoglobin 8.3 g/dL (14.0-18.0); Immature Granulocyte Absolute 0.04 K/mm3 (0.00-0.031); Immature Granulocyte Percent A 0.8 % (0-0.5); Lymphocytes Absolute Auto 0.87 K/mm3 (0.9-3.2); Lymphocytes Percent Auto 16.5 % (18.3-44.2); Mean Corpuscular Hemoglobin 29.6 pg (26-34); Mean Corpuscular Volume 102.1 fl (80-100); Mean Platelet Volume 10.2 fl (7.4-10.4); Monocytes Absolute Auto 0.9 K/mm3 (0.1-0.6); Monocytes Percent Auto 16.2 % (2.6-8.5); Neutrophils Absolute Auto 3.4 K/mm3 (1.3-6.7); Neutrophils Percent Auto 63.6 % (45.5-73.1); Platelet Count Result 256 k/mm3 (150-375); Red Cell Distribution Width 19.7 % (11.5-14.5); White Blood Count 5.3 K/mm3 (4.5-10.0)
[2023-01-30 21:11] LABS: Alveolar/Arterial O2 Gradient 313.2 mmHg; Base Excess ABG 5.2 mEq/l (+/-2.0); Carboxyhemoglobin 2.6 % THb (0-2.0); Fractional Inspired Oxygen 60 %; HCO3 ABG 29.8 mEq/l (22.0-26.0); Methemoglobin ABG 0.1 %THb (0-1.5); Oxygen Content ABG 10.6 %vol (16.0-22.0); Oxygen Saturation ABG 93.6 % (95.0-100.0); Oxyhemoglobin 89.4 % THb (90.0-100.0); PCO2 ABG 44.5 mmHg (35.0-45.0); PO2 ABG 65.7 mmHg (80.0-100.0); PO2 FiO2 Ratio Arterial Blood 1.09 %; Reduced Hemoglobin 7.9 %THb (0-5.0); Total Hemoglobin 8.4 g/dL (12.0-18.0); pH ABG 7.444 (7.350-7.450)
[2023-01-30 21:13] LABS: Device HIGH FLOW NASAL CANN; Modified Allen's Test Pass; Site Drawn RIGHT RADIAL
--- NOTE | 2023-01-30 21:15 | ED.SOB ---
HPI - SOB/Dyspnea General Chief Complaint: Shortness of Breath/Dyspnea <Dianne Travis PA-C - Last Filed: 01/31/23 02:34> Stated Complaint: LOW OXYGEN SATURATION <Dianne Travis PA-C - Last Filed: 01/31/23 02:34> Time Seen by Provider: 01/30/23 20:51 <Dianne Travis PA-C - Last Filed: 01/31/23 02:34> Source: patient <SHAUNA Giron Last Filed: 01/31/23 02:34> Mode of arrival: EMS <SHAUNA Giron Last Filed: 01/31/23 02:34> Limitations: no limitations <SHAUNA Giron Last Filed: 01/31/23 02:34> History of Present Illness HPI Narrative: This is a 87 year old male that presents to the ER for low oxygen saturation. Reports his oxygen saturation has been up and down the last couple of days. Reports extremity edema. He wears 3L via NC chronically, but oxygen requirements have increased today. Denies fever, cough, or chest pain. <Dianne Travis PA-C - Last Filed: 01/31/23 02:34> Related Data Home Medications: Home Medications Medication Instructions Recorded Confirmed amino acids-protein hydrolysate 17 1 ea PO DAILY ##0 01/02/23 01/31/23 gram-100 kcal/30 mL oral liquid (Pro-Stat AWC) atorvastatin 20 mg tablet 20 mg PO HS 01/02/23 01/31/23 cyanocobalamin (vitamin B-12) 1,000 mcg PO DAILY 01/02/23 01/31/23 1,000 mcg tablet docusate sodium 100 mg capsule 100 mg PO BID 01/02/23 01/31/23 dutasteride 0.5 mg capsule 0.5 mg PO DAILY 01/02/23 01/31/23 ergocalciferol (vitamin D2) 1,250 1,250 mcg PO WEEKLY ##0 01/02/23 01/31/23 mcg (50,000 unit) capsule ferrous sulfate 325 mg (65 mg 325 mg PO BID 01/02/23 01/31/23 iron) tablet fluticasone fur. 100 mcg-umeclid 1 inh inhalation DAILY 01/02/23 01/31/23 62.5 mcg-vilant 25 mcg inhalat.powder (Trelegy Ellipta) fluticasone propionate 50 2 spray intranasal DAILY 01/02/23 01/31/23 mcg/actuation nasal spray,suspension folic acid 1 mg tablet 1 mg PO HS 01/02/23 01/31/23 furosemide 40 mg tablet 40 mg PO DAILY 01/02/23 01/31/23 levothyroxine 100 mcg tablet 100 mcg PO DAILY ##0 01/02/23 01/31/23 oxycodone 5 mg tablet 5 mg PO Q4H PRN pain 7-10 01/02/23 01/31/23 pantoprazole 40 mg tablet,delayed 40 mg PO BID ##0 01/02/23 01/31/23 release potassium chloride 20 mEq 20 meq PO DAILY ##0 01/02/23 01/31/23 tablet,extended release sennosides 8.6 mg tablet (senna) 17.2 mg PO HS ##0 01/02/23 01/31/23 sertraline 50 mg tablet 50 mg PO HS ##0 01/02/23 01/31/23 acetaminophen 500 mg tablet 500 mg PO Q6H PRN pain or fever 01/31/23 01/31/23 albuterol sulfate 90 mcg/actuation 2 puff inhalation TID PRN Wheezing 01/31/23 01/31/23 aerosol inhaler (Ventolin HFA) apixaban 5 mg tablet (Eliquis) 5 mg PO Q12H 01/31/23 01/31/23 aspirin 81 mg chewable tablet 81 mg PO DAILY 01/31/23 01/31/23 calcium carbonate 500 mg calcium 200 mg PO DAILY 01/31/23 01/31/23 (1,250 mg) chewable tablet furosemide 20 mg tablet 20 mg PO DAILY 01/31/23 01/31/23 lanolin alcohols-mineral 1 applic topical BID 01/31/23 01/31/23 oil-w.petrolatum-ceresin topical cream (Eucerin topical cream) lidocaine 4 % topical patch 1 patch topical BID 01/31/23 01/31/23 magnesium hydroxide 400 mg/5 mL 400 mg PO DAILY PRN Constipation 01/31/23 01/31/23 oral suspension mupirocin 2 % topical ointment See Rx Instructions .Route .COMPLEX 01/31/23 01/31/23 <Dianne Travis PA-C - Last Filed: 01/31/23 02:34> Allergies/Adverse Reactions: Allergies Allergy/AdvReac Type Severity Reaction Status Date / Time No Known Allergies Allergy Verified 01/08/23 11:08 <Dianne Travis PA-C - Last Filed: 01/31/23 02:34> Review of Systems Review of Systems: CONSTITUTIONAL: Denies fever CARDIOVASCULAR: Reports edema. Denies chest pain RESPIRATORY: Reports dyspnea. Denies cough <Dianne Travis PA-C - Last Filed: 01/31/23 02:34> All systems reviewed & are unremarkable except as noted in HPI and below <Dianne Travis PA-C - Last Filed: 01/31/23 02
[2023-01-30 21:16] LABS: Alanine Aminotransferase 14 U/L (6-50); Albumin Level 3.3 g/dL (3.5-5.1); Alkaline Phosphatase 79 U/L (38-126); Anion Gap 3 mmol/L (8-16); Aspartate Amino Transferase 19 U/L (17-59); Bilirubin,Total 0.7 mg/dL (0.2-1.3); Blood Urea Nitrogen 25 mg/dL (9-20); Calcium 7.9 mg/dL (8.4-10.2); Carbon Dioxide 38 mmol/L (22-30); Chloride 97 mmol/L (98-107); Estimated CRCL calculation 69 ml/min; Estimated Glomerular Filt Rate > 60; Glucose 106 mg/dL (65-110); Potassium 3.6 mmol/L (3.4-5.0); Sodium 138 mmol/L (137-145)
[2023-01-30 21:17] LABS: Lactic Acid Reflex 1.2 mmol/L (0.7-2.0)
[2023-01-30 21:25] LABS: INR 1.3; Prothrombin Time 17.5 Seconds (11.1-14.7)
[2023-01-30 21:41] LABS: Influenza A QL RT-PCR Negative (Negative); Influenza B QL RT-PCR Negative (Negative); RSV RNA, RT-PCR Negative (Negative); SARS-CoV-2 RNA PCR Negative (Negative)
[2023-01-30 21:42] LABS: Hypochromasia 1+ (NORMAL); Platelet Estimate Adequate (Adequate); Schistocytes None Seen (NORMAL)
[2023-01-30 21:43] LABS: Anisocytosis 3+ (NORMAL); Macrocytosis 1+ (NORMAL)
--- NOTE | 2023-01-30 22:28 | PC.NURSE ---
Pt moved around to use urinal and oxygen saturation dropped down to the 80's again. Pt sat back up in bed.
[2023-01-30 22:29] VITALS: BP 148/73; PULSE 87; RESP 23; O2SAT 95
[2023-01-30] MEDS: FUROSEMIDE INJ 40 MG/4 ML VIAL IV PUSH (23:41)
--- NOTE | 2023-01-30 23:44 | PM.IMHP ---
H&P: HPI History of Present Illness Date/Time: 01/30/23 23:44 Chief Complaint: Patient was brought to the ER for evaluation for shortness of breath which is getting worse Narrative: Our patient is a very pleasant 87 years old white male who was brought to the ER for evaluation for his shortness of breath and cough for couple of days which is getting worse. He uses 3 L of oxygen via nasal cannula at home, but the oxygen requirements have increased today. Workup was done in the ER which showed O2 sats in 70s. His oxygen was increased to 12L via nasal cannula with some relief. Workup was done which showed extensive pneumonia involving both sides. He is started on IV antibiotics and is being admitted for medical management. Review of Systems Review of Systems: patient denies any chest pain, palpitations, fever rigor chills, nausea vomiting. He complains of cough with some phlegm. All systems reviewed & are unremarkable except as noted in HPI and below PMFSH Past Medical History Medical History Anemia CHF (congestive heart failure) History of femur fracture Hypertension Hypothyroidism Surgical History Surgical History Status post placement of cardiac pacemaker Family History Family History Other Unknown family medical history Social History Social History Smoking status: Former smoker Alcohol intake: never Substance use: never Lack of Transportation: No Lack of Food: Never True Current Housing: I Have Housing Concerned About Future Housing: No Difficulty Paying Gas/Electric Bills: No Difficulty Paying for Meds: No Currently Unemployed: No Education: Decline to Answer Difficulty w/ Childcare or Family Care: No Spiritual care concerns: No Meds Home Medications and Allergies Home Medications Medication Instructions Recorded Confirmed Type amino acids-protein hydrolysate 17 1 ea PO DAILY ##0 01/02/23 01/31/23 History gram-100 kcal/30 mL oral liquid (Pro-Stat AWC) atorvastatin 20 mg tablet 20 mg PO HS 01/02/23 01/31/23 History cyanocobalamin (vitamin B-12) 1,000 mcg PO DAILY 01/02/23 01/31/23 History 1,000 mcg tablet docusate sodium 100 mg capsule 100 mg PO BID 01/02/23 01/31/23 History dutasteride 0.5 mg capsule 0.5 mg PO DAILY 01/02/23 01/31/23 History ergocalciferol (vitamin D2) 1,250 1,250 mcg PO WEEKLY ##0 01/02/23 01/31/23 History mcg (50,000 unit) capsule ferrous sulfate 325 mg (65 mg 325 mg PO BID 01/02/23 01/31/23 History iron) tablet fluticasone fur. 100 mcg-umeclid 1 inh inhalation DAILY 01/02/23 01/31/23 History 62.5 mcg-vilant 25 mcg inhalat.powder (Trelegy Ellipta) fluticasone propionate 50 2 spray intranasal DAILY 01/02/23 01/31/23 History mcg/actuation nasal spray,suspension folic acid 1 mg tablet 1 mg PO HS 01/02/23 01/31/23 History furosemide 40 mg tablet 40 mg PO DAILY 01/02/23 01/31/23 History levothyroxine 100 mcg tablet 100 mcg PO DAILY ##0 01/02/23 01/31/23 History oxycodone 5 mg tablet 5 mg PO Q4H PRN pain 7-10 01/02/23 01/31/23 History pantoprazole 40 mg tablet,delayed 40 mg PO BID ##0 01/02/23 01/31/23 History release potassium chloride 20 mEq 20 meq PO DAILY ##0 01/02/23 01/31/23 History tablet,extended release sennosides 8.6 mg tablet (senna) 17.2 mg PO HS ##0 01/02/23 01/31/23 History sertraline 50 mg tablet 50 mg PO HS ##0 01/02/23 01/31/23 History neomycin-bacitracn Zn-polymyx 3.5 1 applic topical PRN PRN with 01/09/23 01/31/23 Rx mg-400 unit-5,000 unit/gram top dressing changes #9.35 grams oint (Triple Antibiotic) acetaminophen 500 mg tablet 500 mg PO Q6H PRN pain or fever 01/31/23 01/31/23 History albuterol sulfate 90 mcg/actuation 2 puff inhalation TID PRN Wheezing 01/31/23 01/31/23 History aerosol i
[2023-01-30 23:45] VITALS: BP 134/72; PULSE 82; RESP 20; O2SAT 97
[2023-01-31] VITALS (23 sets, daily range): BP systolic 100–153; BP diastolic 51–68; PULSE 70–85; RESP 18–26; TEMP 36.2–36.5; O2SAT 80–100; BMI 29.3
[2023-01-31 00:12] LABS: NT Pro B Type Natriuretic Pept 995 pg/mL (19.9-100)
[2023-01-31] MEDS: AZITHROMYCIN 500 MG/NS 250 ML 500 MG/250 ML BAG 250 MG IVPB (00:18)
--- NOTE | 2023-01-31 01:40 | ADMGEN ---
This patient, Aiden Fernandez, was admitted to IMU Room 209-01. Patient/family oriented to hospital policies and general routines including ID bracelet, bed and alarms, visiting hours, pain management, procedures, bathroom and other care routines, personal items, smoking policy, room service/diet, and visiting hours. Information on how to activate the Rapid Response Team has been discussed. Patient/Family are encouraged to report perceived risks to care and to ask questions if they do not understand what they are told or what they should do.
[2023-01-31] MEDS: FLUTICASONE/UMECLIDIN/VILANTER 100-62.5-25 MCG ELLIPTA 1 PUFF INHALATION (08:30)
[2023-01-31] MEDS: ASPIRIN 81 MG CHEWABLE TABLET PO (08:53)
[2023-01-31] MEDS: CALCIUM CARBONATE (TUMS) 500 MG (200 MG ELEMENTAL) PO (08:53)
[2023-01-31] MEDS: ERGOCALCIFEROL 50,000 UNITS CAPSULE 50000 UNITS PO (08:55)
[2023-01-31] MEDS: LEVOTHYROXINE SODIUM 100 MCG TABLET PO (08:55)
[2023-01-31] MEDS: DUTASTERIDE 0.5 MG CAPSULE PO (08:56)
[2023-01-31] MEDS: POTASSIUM CHLORIDE 20 MEQ ER TABLET PO (08:56)
[2023-01-31] MEDS: FERROUS SULFATE 325 MG TABLET DR PO ×2 (08:57→16:46)
[2023-01-31] MEDS: DOCUSATE SODIUM 100 MG CAPSULE PO ×2 (08:57→16:46)
[2023-01-31] MEDS: FUROSEMIDE 40 MG TABLET PO (08:57)
[2023-01-31] MEDS: CYANOCOBALAMIN 1,000 MCG TABLET 1000 MCG PO (08:57)
[2023-01-31] MEDS: APIXABAN 5 MG TABLET PO (08:58)
[2023-01-31] MEDS: PANTOPRAZOLE 40 MG TABLET PO ×2 (08:58→20:55)
[2023-01-31] MEDS: FLUTICASONE PROPIONATE 0.05% NA SPR 16 GM BTL (*BKC) 2 SPRAY NASAL (08:59)
[2023-01-31] MEDS: LIDOCAINE 5% PATCH 1 PATCH TRANSDERM (09:00)
[2023-01-31] MEDS: EUCERIN CREAM 120 GM JAR 1 APPLIC TOPICAL ×2 (09:02→16:46)
[2023-01-31] MEDS: MUPIROCIN 2% OINT 22 GM TUBE 1 APPLIC TOPICAL (09:03)
[2023-01-31] MEDS: NEOMYCIN/POLYMYXIN/BACITRACIN OINTMENT 15 GM TUBE 1 APPLIC TOPICAL (09:03)
[2023-01-31] MEDS: oxyCODONE HCL (*CRX) 5 MG TAB IR PO ×3 (09:40→20:54)
--- NOTE | 2023-01-31 13:16 | PM.IMPN ---
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 Recently admitted for anemia. Noted to be hypoxic requiring 12 L oxygen via nasal cannula 90 ED. IV Rocephin and azithromycin for pneumonia. Oxygen saturation been up and down last couple days. Has lower extremity edema. Uses 3 to oxygen via nasal cannula chronically but needed to be increased. Workup with macrocytic anemia with hemoglobin of 8.3. BNP elevated at 995. ABG 7.44/44/65/29. COVID flu RSV negative. Albumin level 3.3 lactate is normal. Renal function. WBC is normal. Venous duplex came back negative for DVT. CTA PE negative for PE does show extensive pneumonia versus congestive heart failure Continue with IV antibiotics as ordered will get sputum culture. Check Legionella Streptococcus mycoplasma. Anemia with recent EGD showing reflux esophagitis 01/08/2023. Macrocytic anemia. GI and hematology has evaluated the patient. No history of overt bleeding. 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 Since discharge his hemoglobin went down to 7 and needed transfusion. TIBC is low okay. Hemoglobin baseline 10-11. Ferritin level was 400 H in the outlying hospital. History of admission at [place] where he was diagnosed with segmental PE in November of 2022. Treated with anticoagulation on and off. Status post bone marrow biopsy on 01/03/2023 mildly hypercellular marrow for age with maturing trilineage hematopoiesis no excess of blast no atypical infiltrate a regular get of B-cells no evidence of mild dysplastic features. 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 Hemoglobin recently 5.8. Needed transfusion Status post pacemaker in left chest wall in situ. B12 deficiency on B12 replacement therapy. With chronic acid was normal at 194 normal RBC folate History of a flutter off anticoagulation due to anemia needing transfusion Anterior wedge compression fracture T8 Severe degenerative disc disease Multiple healing bilateral rib fracture subacute healing fracture of superior medial aspect of right scapula History of coronary artery disease on aspirin 81 mg daily Fall with left periprosthetic femur fracture 11/2022 status post ORIF and IMN left femur status cardiac arrest due to pneumothorax status post chest tube placement multiple rib fractures post chest compressions Large intramuscular hematoma with in the proximal left thigh 11/25/2022 Subjective Date/time seen: 01/31/23 13:16 Interval history: He is feeling a bit better. Still requiring high level
[2023-01-31] MEDS: ACETAMINOPHEN 500 MG TABLET PO (13:36)
--- NOTE | 2023-01-31 13:43 | ECG_ITS ---
Measurements Intervals Switchback Rate: 79 P: 211 WI: 176 QRS: -40 QRSD: 182 T: 112 QT: 456 QTc: 526 Interpretive Statements ATRIAL SENSE- ELECTRONIC VENTRICULAR PACEMAKER BASELINE ARTIFACT- I, II, AVR, AVL, AVF, V4-V6 NO FURTHER INTERPRETATION IS POSSIBLE ATYPICAL ECG NO PREVIOUS ECG AVAILABLE FOR COMPARISON Electronically Signed On 01-31-2023 13:56:44 CDT by Francisco Mckeon D.O.
[2023-01-31] MEDS: FUROSEMIDE INJ 40 MG/4 ML VIAL IV PUSH (14:04)
--- NOTE | 2023-01-31 16:22 | PC.NURSE ---
On 01/31/23, the student, Marlin [facility], provided care and [facility] I have reviewed the student's documentation and agree with the findings.
[2023-01-31 17:50] LABS: Vitamin D 25 Hydroxy 28.3 ng/mL
[2023-01-31] MEDS: FOLIC ACID 1 MG TABLET PO (20:55)
[2023-01-31] MEDS: SENNOSIDES 8.6 MG TABLET 17.2 MG PO (20:55)
[2023-01-31] MEDS: ATORVASTATIN 20 MG TABLET PO (20:55)
[2023-01-31] MEDS: SERTRALINE HCL 50 MG TABLET PO (20:55)
[2023-02-01] VITALS (25 sets, daily range): BP systolic 107–146; BP diastolic 51–77; PULSE 64–79; RESP 16–22; TEMP 36.2–37.1; O2SAT 92–100
[2023-02-01] MEDS: AZITHROMYCIN 500 MG/NS 250 ML 500 MG/250 ML BAG 250 MG IVPB ×2 (01:10→21:28)
[2023-02-01 05:14] LABS: Eosinophils Absolute Auto 0.2 K/mm3 (0-0.3); Eosinophils Percent Auto 5.3 % (0-4.4); Hematocrit 24.8 % (42.0-52.0); Immature Granulocyte Absolute 0.04 K/mm3 (0.00-0.031); Lymphocytes Absolute Auto 0.68 K/mm3 (0.9-3.2); Lymphocytes Percent Auto 16.5 % (18.3-44.2); Mean Corpuscular HGB Conc 28.2 g/dl (32-36); Mean Corpuscular Hemoglobin 29.3 pg (26-34); Mean Corpuscular Volume 103.8 fl (80-100); Mean Platelet Volume 9.8 fl (7.4-10.4); Monocytes Absolute Auto 0.7 K/mm3 (0.1-0.6); Neutrophils Absolute Auto 2.4 K/mm3 (1.3-6.7); Neutrophils Percent Auto 59.2 % (45.5-73.1); Platelet Count Result 224 k/mm3 (150-375); Red Blood Count 2.39 M/mm3 (4.6-6.20); Red Cell Distribution Width 18.9 % (11.5-14.5); White Blood Count 4.1 K/mm3 (4.5-10.0)
[2023-02-01 05:42] LABS: Blood Urea Nitrogen 22 mg/dL (9-20); Calcium 7.5 mg/dL (8.4-10.2); Carbon Dioxide > 40 mmol/L (22-30); Chloride 95 mmol/L (98-107); Estimated CRCL calculation 69 ml/min; Estimated Glomerular Filt Rate > 60; Glucose 105 mg/dL (65-110); Magnesium 2.1 mg/dL (1.6-2.3); Potassium 3.9 mmol/L (3.4-5.0); Sodium 138 mmol/L (137-145)
[2023-02-01 05:56] LABS: Anisocytosis 2+ (NORMAL); Hypochromasia 1+ (NORMAL); Platelet Estimate Adequate (Adequate); Schistocytes None Seen (NORMAL)
[2023-02-01] MEDS: LEVOTHYROXINE SODIUM 100 MCG TABLET PO (06:32)
[2023-02-01] MEDS: FLUTICASONE/UMECLIDIN/VILANTER 100-62.5-25 MCG ELLIPTA 1 PUFF INHALATION (08:21)
[2023-02-01] MEDS: POTASSIUM CHLORIDE 20 MEQ ER TABLET PO (09:33)
[2023-02-01] MEDS: EUCERIN CREAM 120 GM JAR 1 APPLIC TOPICAL ×2 (09:34→16:29)
[2023-02-01] MEDS: PANTOPRAZOLE 40 MG TABLET PO ×2 (09:34→20:24)
[2023-02-01] MEDS: LIDOCAINE 5% PATCH 1 PATCH TRANSDERM (09:34)
[2023-02-01] MEDS: CYANOCOBALAMIN 1,000 MCG TABLET 1000 MCG PO (09:35)
[2023-02-01] MEDS: DUTASTERIDE 0.5 MG CAPSULE PO (09:35)
[2023-02-01] MEDS: FUROSEMIDE INJ 40 MG/4 ML VIAL IV PUSH ×2 (09:35→17:46)
[2023-02-01] MEDS: FLUTICASONE PROPIONATE 0.05% NA SPR 16 GM BTL (*BKC) 2 SPRAY NASAL (09:35)
[2023-02-01] MEDS: DOCUSATE SODIUM 100 MG CAPSULE PO ×2 (09:35→16:28)
[2023-02-01] MEDS: FERROUS SULFATE 325 MG TABLET DR PO ×2 (09:36→16:28)
[2023-02-01] MEDS: ASPIRIN 81 MG CHEWABLE TABLET PO (09:36)
[2023-02-01] MEDS: CALCIUM CARBONATE (TUMS) 500 MG (200 MG ELEMENTAL) PO (09:36)
[2023-02-01] MEDS: CEFEPIME 2 GM/NS 50 ML 2 GM/50 ML BAG IVPB ×2 (09:56→17:58)
[2023-02-01] MEDS: ERGOCALCIFEROL 50,000 UNITS CAPSULE 50000 UNITS PO (09:56)
[2023-02-01] MEDS: ACETAMINOPHEN 500 MG TABLET PO (11:39)
[2023-02-01] MEDS: VANCOMYCIN 1,250 MG/NS 250 ML 1,250 MG/250 ML BAG 166.67 MG IVPB ×2 (12:56→12:57)
[2023-02-01] MEDS: oxyCODONE HCL (*CRX) 5 MG TAB IR PO ×2 (12:56→20:29)
[2023-02-01] MEDS: ALBUTEROL SULFATE NEB 2.5 MG/3 ML INH INHALATION ×2 (13:44→22:00)
[2023-02-01] MEDS: IPRATROPIUM BR 0.02% INH SOLN 0.5 MG/2.5 ML VIAL INHALATION ×2 (13:44→22:01)
[2023-02-01] MEDS: TUBING, BLOOD PLUM PUMP TUBING 1 EACH XX (15:11)
[2023-02-01] MEDS: SODIUM CHLORIDE 0.9% IV 250 ML 30 ML IV CONT (15:11)
--- NOTE | 2023-02-01 15:34 | PM.IMPN ---
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 Recently admitted for anemia. Noted to be hypoxic requiring 12 L oxygen via nasal cannula 90 ED. IV Rocephin and azithromycin for pneumonia. Oxygen saturation been up and down last couple days. Has lower extremity edema. Uses 3 to oxygen via nasal cannula chronically but needed to be increased. This has escalated up to require Airvo. Will adjust antibiotic to broaden the coverage with vancomycin and cefepime. Stop ceftriaxone. Continue on azithromycin. Workup with macrocytic anemia with hemoglobin of 8.3. BNP elevated at 995. ABG 7.44/44/65/29. COVID flu RSV negative. Albumin level 3.3 lactate is normal. Renal function. WBC is normal. Venous duplex came back negative for DVT. CTA PE negative for PE does show extensive pneumonia versus congestive heart failure Continue with IV antibiotics as ordered will get sputum culture. Check Legionella Streptococcus mycoplasma. # anemia with recent EGD showing reflux esophagitis 01/08/2023. Macrocytic anemia. GI and hematology has evaluated the patient. No history of overt bleeding. 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 Since discharge his hemoglobin went down to 7 and needed transfusion. TIBC is low okay. Hemoglobin baseline 10-11. Ferritin level was 400 H in the outlying hospital. H&H Down to 7 again today. . Will transfuse 1 unit of PRBC and Lasix 40 mg after that GI consulted with ongoing anemia which is suspect is related to GI bleed. Evidence of iron deficiency on bone marrow biopsy will order iron infusion # history of admission at [place] where he was diagnosed with segmental PE in November of 2022. Treated with anticoagulation on and off. Status post bone marrow biopsy on 01/03/2023 mildly hypercellular marrow for age with maturing trilineage hematopoiesis no excess of blast no atypical infiltrate a regular get of B-cells no evidence of mild dysplastic features. 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 Hemoglobin recently 5.8. Needed transfusion # status post pacemaker in left chest wall in situ. # b12 deficiency on B12 replacement therapy. With chronic acid was normal at 194 normal RBC folate # history of a flutter off anticoagulation due to anemia needing transfusion # anterior wedge compression fracture T8 # severe degenerative disc disease # multiple healing bilateral rib fracture subacute healing fracture of superior medial aspect of right scapula # history of coronary artery dise
--- NOTE | 2023-02-01 15:43 | WPDGICN ---
Assessment and Plan Assessment and plan (1) Acute on chronic anemia: Code(s): D64.9 - Anemia, unspecified Status: Acute Assessment and Plan: last egd no major findings he is seeing hematology no need to repeat endoscopy unless obvious bleeding, also right now with respiratory failure due to bilateral pneumonia (2) Acute on chronic respiratory failure: Qualifiers: Respiratory failure complication: hypoxia Qualified Code(s): J96.21 - Acute and chronic respiratory failure with hypoxia Code(s): J96.20 - Acute and chronic respiratory failure, unspecified whether with hypoxia or hypercapnia Status: Acute Assessment and Plan: on oxygen, abx and breathing treatment (3) Bilateral pneumonia: Code(s): J18.9 - Pneumonia, unspecified organism Status: Acute Assessment and Plan: abx (4) 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 - Other megaloblastic anemias, not elsewhere classified Status: Acute Assessment and Plan: by hematology (5) Status post placement of cardiac pacemaker: Code(s): Z95.0 - Presence of cardiac pacemaker Status: Acute (6) CHF (congestive heart failure): Code(s): I50.9 - Heart failure, unspecified Status: Acute GI Consult Note Consult date/time: 02/01/23 15:43 Reason for consult: acute on chronic anemia HPI: Aiden Fernandez is a 87 year old male with history of congestive heart failure, hypertension with anemia, most recent hospitalization few weeks ago with worsening anemia requiring blood transfusion, he was evaluated by hematology and Dr Banuelos. He underwent new EGD that showed only mild esophagitis, no avm or anything to explain anemia. Previously had another EGD at another hospital that showed gastric AVM cauterized. Last colonoscopy about 3 years ago. He normally has dark stools because using iron, just recently completed bone marrow biopsy by Dr Gooden. Since last hospitalization he required blood transfusion another 2 times. Also at baseline he uses 3 L of oxygen via nasal cannula at home, but the oxygen requirements have increased day of admission, he was having dyspnea on exertion.?ER evaluation showed O2 sats in 70s. His oxygen was increased to 12L via nasal cannula with some relief.?CTA chest reviewed, showed extensive pneumonia involving both sides. Started on antibiotics. Hgb this time 7, denies overt gib. Review of Systems Constitutional: Constitutional: Reports fatigue Eyes: Eyes: Denies blurry vision ENT: Reports Normal hearing present Cardiovascular: Cardiovascular: Denies leg edema Respiratory: Respiratory: Reports chest congestion and Reports dyspnea Gastrointestinal: Gastrointestinal: Denies abdominal pain Genitourinary: Genitourinary: Denies dysuria Musculoskeletal: Musculoskeletal: Denies neck pain Integumentary/Breasts: Skin/Breast: Denies rash Neurologic: Denies confusion Psychiatric: Psychiatric: Denies behavioral changes [facility] Past Medical History Medical History (Updated 02/01/23 @ 15:49 by Nikita Hope MD) Acute on chronic anemia Anemia CHF (congestive heart failure) History of femur fracture Hypertension Hypothyroidism Surgical History Surgical History Status post placement of cardiac pacemaker Family History Family History Other Unknown family medical history Social History Social History Smoking status: Former smoker Alcohol intake: never Substance use: never Lack of Transportation: No Lack of Food: Never True Current Housing: I Have Housing Concerned About Future Housing: No Difficulty Paying Gas/Electric Bills: No Difficulty Paying for Meds: No Currently Unemployed: No Education: Decline to Answer Difficulty w/ Childcare or Family Care: No Spiritual care
--- NOTE | 2023-02-01 16:03 | PM.CNPUL ---
Assessment and Plan Assessment and plan (1) CHF (congestive heart failure): Code(s): I50.9 - Heart failure, unspecified Status: Acute (2) Hypoxemic respiratory failure, chronic: Code(s): J96.11 - Chronic respiratory failure with hypoxia Status: Acute (3) Acute on chronic respiratory failure: Qualifiers: Respiratory failure complication: hypoxia Qualified Code(s): J96.21 - Acute and chronic respiratory failure with hypoxia Code(s): J96.20 - Acute and chronic respiratory failure, unspecified whether with hypoxia or hypercapnia Status: Acute Assessment and Plan: This 87-year-old man with history of chronic hypoxemic respiratory failure most likely related to pulmonary fibrosis presented with shortness of breath and hypoxemia. Patient had no other symptoms to suggest infection like cough sputum production fever chills. Comparison of chest imaging studies, the most recent chest x-ray and that taken 1 month ago showed new infiltrates superimposed on lung fibrosis. On chest CT these infiltrates are ground-glass primarily in the upper lobes, in which baseline fibrosis was also present. It is unclear what the CT pattern of fibrosis is as the new infiltrates also involve the upper lobes. Differential diagnosis includes congestive heart failure and also possible exacerbation of fibrosis. Transfusion related acute lung injury is unlikely because the timing of shortness of breath occurred days after last blood transfusion. Patient has been on antibiotics for possible lower respiratory tract infection as well as on diuresis for congestive heart failure. Case was discussed with the hospitalist. At this point will continue with current antibiotic regimen and discontinue vancomycin if the MRSA screening is negative. I would consider Solu-Medrol 60 mg IV daily for the next couple of days to cover for possible exacerbation of underlying pulmonary fibrosis. (4) Anemia: Qualifiers: Anemia type: other cause Other causes of anemia: other cause, not classified Qualified Code(s): D64.89 - Other specified anemias Code(s): D64.9 - Anemia, unspecified Status: Acute History of Present Illness History of Present Illness Consult date: 02/01/23 Chief complaint: Acute on Chronic Respiratory Failure Pneumonia Narrative: This 87-year-old man presented with increasing shortness of breath lower extremity edema and hypoxemia. Patient has had multiple medical problems including history of chronic hypoxemic respiratory failure on supplemental oxygen 3 liters/minute on p.r.n. basis, history of anemia with recent hospitalizations for low hematocrit. The patient underwent knee surgery at [facility] several months ago after which he had complications, like pulmonary embolism and according to the patient he underwent CPR. Since discharge from [facility] he has been undergoing rehab a couple of different rehab places. Patient stated that while he was doing rehab he noticed increasing shortness of breath and drop in his oxygen. He also notice lower extremity edema. Patient had no other symptoms such as chest pain palpitations orthopnea hemoptysis cough fever chills wheezing or sputum production. On admission he underwent chest x-ray and subsequently chest CT. Comparison to most recent x-ray with that taken 1 month ago shows new infiltrates bilaterally, consistent with possible CHF. On chest CT the patient has evidence of a underlying fibrosis with mild bronchiectasis and honeycombing and ground-glass infiltrates bilaterally. Patient has no history of exposure to inhalational harmful substances. He used to smoke 2 packs per day for about 10 years but quit many years ago. Review of Systems Review of Systems: All systems reviewed & are unremarkable except as noted in HPI and below (HPI and below) [facility] Past Medical History Medical History (Updated 02/01/23 @ 16:37 by Delfin Venegas MD) Acute on chronic ane
--- NOTE | 2023-02-01 17:11 | PDONCCN ---
HPI - Date of Consult Date/Time: 02/01/23 17:11 Requesting Physician: Osmin Leger MD Primary Care Provider: PHYSICIAN NOT ON STAFF - Consult Narrative Reason for consult: Macrocytic anemia and leukopenia Narrative: Aiden Fernandez is a 87 year old male with history of congestive heart failure, hypothyroidism and hypertension was last seen in the hospital on January 01 for macrocytic anemia. He underwent bone marrow aspiration and biopsy on January 03 that showed no evidence of myelodysplastic syndrome or malignancy. He came back into the hospital with worsening of shortness of breath. He denies any bleeding including melena hematochezia. His weight and appetite stable. Labs showed hemoglobin of 8.3 now dropped to 7.0. Chest CT was performed that showed multiple hepatic hypoattenuating lesions with extensive bilateral patchy infiltrate with no evidence of PE. There was right scapular and multiple bilateral healing rib fractures. He also have bilateral lower extremity edema and Doppler study showed no evidence of DVT. Previous EGD done on January 08 showed reflux esophagitis. He had colonoscopy done about 9 months ago that showed 1 bleeding lesion that was cauterized. Labs from January 02 showed vitamin B12 348 iron 53 saturation 20% with ferritin 124. Creatinine was normal at 0.8. He remains tired and fatigued. Review of Systems - Review of Systems All systems reviewed & are unremarkable except as noted in HPI and bel - Neurologic Reports hearing normal, Denies behavioral changes, Denies confusion [facility] Medical History: Medical History (Last Updated 02/01/23 @ 15:49 by Nikita Hope MD) Acute on chronic anemia Anemia CHF (congestive heart failure) History of femur fracture Hypertension Hypothyroidism Surgical History: Surgical History (Last Reviewed 01/31/23 @ 06:37 by Osmin Leger MD) Status post placement of cardiac pacemaker Family History: Family History (Last Reviewed 01/31/23 @ 06:37 by Osmin Leger MD) Other Unknown family medical history - Social History Social History: Social History (Last Reviewed 01/31/23 @ 06:37 by Osmin Leger MD) Alcohol Use: Alcohol intake: never Substance Use: Substance use: never Others: Spiritual care concerns: No Smoking Status: Smoking status: Former smoker Approximate Smoking End Date: 1999 Social Determinants of Health: Has the Lack of Transportation Kept You From Medical Appointments or From Getting Medications?: No Within the Past 12 Months, Were You Worried Whether Your Food Would Run Out Before You Got Money to Buy More?: Never True What is Your Housing Situation Today?: I Have Housing Are You Worried That in the Next 2 Months, You May Not Have Your Own Housing to Live In?: No Do You Have Trouble Paying Your Heating Or Electricity Bill?: No Do You Have Trouble Paying For Medicines?: No Are You Currently Unemployed and Looking for Work?: No Highest Level of Education Completed: Decline to Answer Do You Have Trouble With Childcare or the Care of a Family Member?: No Exam - Vital Signs Vital Signs - 24 hr 01/31/23 18:00 01/31/23 19:16 01/31/23 21:41 Temperature 36.2 C L Pulse Rate 75 74 75 Respiratory Rate 26 H 18 Blood Pressure 127/64 Pulse Oximetry 92 100 Oxygen Delivery High Flow Therapy with Na Oxygen Flow Rate 40 Fraction of Inspired Oxygen 80 01/31/23 20:00 01/31/23 20:00 01/31/23 21:58 Temperature Pulse Rate 77 73 Respiratory Rate Blood Pressure Pulse Oximetry 100 Oxygen Delivery High Flow Therapy with Na Oxygen Flow Rate 40 Fraction of Inspired Oxygen 80 01/31/23 23:24 01/31/23 23:52 02/01/23 00:57 Temperature 36.5 C Pulse Rate 80 74 Respiratory Rate 20 20 Blood Pressure 127/54 L Pulse Oximetry 100 100 100 Oxygen Delivery High Flow Therapy with Na High Flow Therapy with Na Oxygen
[2023-02-01] MEDS: methylPREDNISolone SOD SUCC 125 MG VIAL 60 MG IV PUSH (17:45)
[2023-02-01] MEDS: FOLIC ACID 1 MG TABLET PO (20:24)
[2023-02-01] MEDS: ATORVASTATIN 20 MG TABLET PO (20:24)
[2023-02-01] MEDS: SERTRALINE HCL 50 MG TABLET PO (20:25)
[2023-02-01] MEDS: SENNOSIDES 8.6 MG TABLET 17.2 MG PO (20:25)
[2023-02-02] VITALS (28 sets, daily range): BP systolic 109–149; BP diastolic 57–74; PULSE 60–86; RESP 18–22; TEMP 35.7–36.7; O2SAT 84–100
[2023-02-02] MEDS: CEFEPIME 2 GM/NS 50 ML 2 GM/50 ML BAG IVPB ×3 (02:30→17:50)
[2023-02-02] MEDS: IPRATROPIUM BR 0.02% INH SOLN 0.5 MG/2.5 ML VIAL INHALATION ×4 (03:02→18:03)
[2023-02-02] MEDS: ALBUTEROL SULFATE NEB 2.5 MG/3 ML INH INHALATION ×4 (03:02→18:03)
[2023-02-02 04:05] LABS: Hematocrit 24.2 % (42.0-52.0); Hemoglobin 7.2 g/dL (14.0-18.0); Immature Granulocyte Absolute 0.02 K/mm3 (0.00-0.031); Immature Granulocyte Percent A 0.7 % (0-0.5); Lymphocytes Absolute Auto 0.35 K/mm3 (0.9-3.2); Lymphocytes Percent Auto 12.4 % (18.3-44.2); Mean Corpuscular HGB Conc 29.8 g/dl (32-36); Mean Corpuscular Hemoglobin 29.3 pg (26-34); Mean Corpuscular Volume 98.4 fl (80-100); Mean Platelet Volume 9.8 fl (7.4-10.4); Monocytes Absolute Auto 0.3 K/mm3 (0.1-0.6); Monocytes Percent Auto 10.3 % (2.6-8.5); Neutrophils Absolute Auto 2.2 K/mm3 (1.3-6.7); Neutrophils Percent Auto 76.6 % (45.5-73.1); Platelet Count Result 208 k/mm3 (150-375); Red Blood Count 2.46 M/mm3 (4.6-6.20); White Blood Count 2.8 K/mm3 (4.5-10.0)
[2023-02-02 04:17] LABS: Blood Urea Nitrogen 20 mg/dL (9-20); Calcium 7.3 mg/dL (8.4-10.2); Carbon Dioxide > 40 mmol/L (22-30); Chloride 94 mmol/L (98-107); Estimated CRCL calculation 78 ml/min; Estimated Glomerular Filt Rate > 60; Glucose 150 mg/dL (65-110); Magnesium 2.1 mg/dL (1.6-2.3); Potassium 3.6 mmol/L (3.4-5.0); Sodium 135 mmol/L (137-145)
[2023-02-02 04:21] LABS: Iron 150 ug/dL (49-181)
[2023-02-02 04:32] LABS: Percent Iron Saturation 58 % (20-50)
[2023-02-02 04:37] LABS: Anisocytosis 1+ (NORMAL); Hypochromasia 1+ (NORMAL); Platelet Estimate Adequate (Adequate); Schistocytes Rare (NORMAL)
[2023-02-02 05:22] LABS: Folic Acid 19.7 ng/mL (2.76->20)
[2023-02-02] MEDS: LEVOTHYROXINE SODIUM 100 MCG TABLET PO (05:54)
[2023-02-02] MEDS: FLUTICASONE/UMECLIDIN/VILANTER 100-62.5-25 MCG ELLIPTA 1 PUFF INHALATION (07:46)
[2023-02-02] MEDS: EUCERIN CREAM 120 GM JAR 1 APPLIC TOPICAL ×2 (08:38→17:14)
[2023-02-02] MEDS: POTASSIUM CHLORIDE 20 MEQ ER TABLET PO (08:38)
[2023-02-02] MEDS: PANTOPRAZOLE 40 MG TABLET PO ×2 (08:38→21:54)
[2023-02-02] MEDS: methylPREDNISolone SOD SUCC 125 MG VIAL 60 MG IV PUSH (08:39)
[2023-02-02] MEDS: LIDOCAINE 5% PATCH 1 PATCH TRANSDERM (08:40)
[2023-02-02] MEDS: FUROSEMIDE INJ 40 MG/4 ML VIAL IV PUSH ×2 (08:41→17:14)
[2023-02-02] MEDS: CYANOCOBALAMIN 1,000 MCG TABLET 1000 MCG PO (08:41)
[2023-02-02] MEDS: DUTASTERIDE 0.5 MG CAPSULE PO (08:41)
[2023-02-02] MEDS: DOCUSATE SODIUM 100 MG CAPSULE PO ×2 (08:41→17:14)
[2023-02-02] MEDS: FLUTICASONE PROPIONATE 0.05% NA SPR 16 GM BTL (*BKC) 2 SPRAY NASAL (08:41)
[2023-02-02] MEDS: oxyCODONE HCL (*CRX) 5 MG TAB IR PO ×2 (08:42→21:55)
[2023-02-02] MEDS: ASPIRIN 81 MG CHEWABLE TABLET PO (08:42)
[2023-02-02] MEDS: ACETAMINOPHEN 500 MG TABLET PO (08:42)
[2023-02-02] MEDS: FERROUS SULFATE 325 MG TABLET DR PO ×2 (08:42→17:14)
[2023-02-02] MEDS: CALCIUM CARBONATE (TUMS) 500 MG (200 MG ELEMENTAL) PO (08:42)
--- NOTE | 2023-02-02 11:17 | WPDGIPROGNO ---
Progress Note: A&P Assessment and Plan (1) Acute on chronic anemia: Code(s): D64.9 - Anemia, unspecified Status: Acute Assessment and Plan: no signs of bleeding had egd in recent past without major findings and also had colonoscopy in the past we can complete GI work up as outpatient, will order small bowel capsule endoscopy (discussed with patient, he has a pacemaker and agreeable to have capsule) director payer also on board and considering to repeat another BM biopsy as outpatient (2) Hypoxemic respiratory failure, chronic: Code(s): J96.11 - Chronic respiratory failure with hypoxia Status: Acute Assessment and Plan: on treatment pulmonary on the case (3) Bilateral pneumonia: Code(s): J18.9 - Pneumonia, unspecified organism Status: Acute Assessment and Plan: on abx (4) CHF (congestive heart failure): Code(s): I50.9 - Heart failure, unspecified Status: Acute (5) Status post placement of cardiac pacemaker: Code(s): Z95.0 - Presence of cardiac pacemaker Status: Acute Subjective Date/time seen: 02/02/23 11:17 Interval history: no new issues still on oxygen Review of Systems Review of Systems: All systems reviewed & are unremarkable except as noted in HPI and below Exam Narrative: GENERAL APPEARANCE: Well developed, well nourished, alert and cooperative, and appears to be in mild respiratory distress while on high-flow nasal cannula SKIN: Inspection of the skin reveals no rashes, ulcerations or petechiae. HEENT: Sclerae anicteric and conjunctivae pink and moist. Extraocular movements were intact and pupils were equal, round; dry oral mucosa. NECK: Supple. CHEST: Normal AP diameter and normal contour without any kyphoscoliosis. LUNGS: Crackles posteriorly, no wheezes CARDIAC: There was a regular rate and rhythm without any murmurs, gallops, rubs. ABDOMEN: Soft and nontender with normal bowel sounds. There was no organomegaly. LYMPH NODES: No lymphadenopathy was appreciated in the neck. EXTREMITIES: No cyanosis, clubbing 1+ pedal edema. NEUROLOGIC: Alert and oriented x 3. Normal affect. Psych: normal affect Objective Data Vital Signs Vital Signs: Vital Signs - 24 hr 02/01/23 12:00 02/01/23 14:09 02/01/23 12:00 Temperature 97.7 F Pulse Rate 74 75 75 Respiratory Rate 20 20 Blood Pressure 112/61 Pulse Oximetry 98 100 Oxygen Delivery High Flow Therapy with Na Oxygen Flow Rate 30 Fraction of Inspired Oxygen 70 02/01/23 12:00 02/01/23 14:29 02/01/23 14:45 Temperature 97.5 F L 97.4 F L Pulse Rate 75 73 Respiratory Rate 16 22 H Blood Pressure 108/55 L 107/54 L Pulse Oximetry 98 97 98 Oxygen Delivery High Flow Therapy with Na Oxygen Flow Rate 35 Fraction of Inspired Oxygen 65 02/01/23 14:00 02/01/23 15:45 02/01/23 16:15 Temperature 98.6 F 98.3 F Pulse Rate 75 76 69 Respiratory Rate 18 21 H Blood Pressure 125/55 L 121/56 L Pulse Oximetry 97 97 Oxygen Delivery Oxygen Flow Rate Fraction of Inspired Oxygen 02/01/23 16:45 02/01/23 17:45 02/01/23 16:00 Temperature 98.2 F 98.7 F Pulse Rate 79 72 75 Respiratory Rate 20 20 Blood Pressure 139/77 138/64 Pulse Oximetry 100 98 Oxygen Delivery Oxygen Flow Rate Fraction of Inspired Oxygen 02/01/23 18:00 02/01/23 16:00 02/01/23 19:49 Temperature 97.4 F L Pulse Rate 74 73 Respiratory Rate 20 Blood Pressure 130/62 Pulse Oximetry 95 100 Oxygen Delivery High Flow Therapy with Na Oxygen Flow Rate 35 Fraction of Inspired Oxygen 65 02/01/23 20:00 02/01/23 22:02 02/01/23 22:03 Temperature Pulse Rate 73 70 Respiratory Rate 20 18 Blood Pressure Pulse Oximetry 100 92 Oxygen Delivery High Flow Therapy with Na High Flow Therapy with Na Oxygen Flow Rate 30 30 Fraction of Inspired Oxygen 64 65 02/01/23 20:00 02/01/23 22:00 02/01/23 23:04 Temperature 97.7 F Pulse Rate 74 71 74
--- NOTE | 2023-02-02 12:13 | PM.IMPN ---
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 Recently admitted for anemia. Noted to be hypoxic requiring 12 L oxygen via nasal cannula 90 ED. IV Rocephin and azithromycin for pneumonia. Oxygen saturation been up and down last couple days. Has lower extremity edema. Uses 3 to oxygen via nasal cannula chronically but needed to be increased. This has escalated up to require Airvo. Will adjust antibiotic to broaden the coverage with vancomycin and cefepime. Stop ceftriaxone. Continue on azithromycin. Workup with macrocytic anemia with hemoglobin of 8.3. BNP elevated at 995. ABG 7.44/44/65/29. COVID flu RSV negative. Albumin level 3.3 lactate is normal. Renal function. WBC is normal. Venous duplex came back negative for DVT. CTA PE negative for PE does show extensive pneumonia versus congestive heart failure Continue with IV antibiotics as ordered will get sputum culture. Check Legionella Streptococcus mycoplasma. Also possibility of fibrosis flare started on Solu Medrol 60 mg IV daily. Continue to monitor and titrate oxygen On broad-spectrum antibiotic with vancomycin cefepime and azithromycin. MRSE near pending if negative will stop vancomycin. Continue diuresis for possible CHF component Will also add acetazolamide for metabolic alkalosis # anemia with recent EGD showing reflux esophagitis 01/08/2023. Macrocytic anemia. GI and hematology has evaluated the patient. No history of overt bleeding. 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 Since discharge his hemoglobin went down to 7 and needed transfusion. TIBC is low okay. Hemoglobin baseline 10-11. Ferritin level was 400 H in the outlying hospital. H&H Down to 7 again today. . Will transfuse 1 unit of PRBC and Lasix 40 mg after that GI consulted with ongoing anemia which is suspect is related to GI bleed. Evidence of iron deficiency on bone marrow biopsy will order iron infusion H&H dropped again will potentially need capsule study to further evaluate Anticoagulation on hold due to recurrent anemia # history of admission at [facility] where he was diagnosed with segmental PE in November of 2022. Treated with anticoagulation on and off. Status post bone marrow biopsy on 01/03/2023 mildly hypercellular marrow for age with maturing trilineage hematopoiesis no excess of blast no atypical infiltrate a regular get of B-cells no evidence of mild dysplastic features. 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 Hemoglobin recently 5.8. Needed transfusion
[2023-02-02] MEDS: MAGNESIUM HYDROXIDE SUSP 30 ML UDC PO (13:02)
[2023-02-02] MEDS: AZITHROMYCIN 500 MG/NS 250 ML 500 MG/250 ML BAG 250 MG IVPB (21:54)
[2023-02-02] MEDS: SENNOSIDES 8.6 MG TABLET 17.2 MG PO (21:54)
[2023-02-02] MEDS: SERTRALINE HCL 50 MG TABLET PO (21:54)
[2023-02-02] MEDS: FOLIC ACID 1 MG TABLET PO (21:54)
[2023-02-02] MEDS: ATORVASTATIN 20 MG TABLET PO (21:54)
[2023-02-03] VITALS (29 sets, daily range): BP systolic 114–148; BP diastolic 56–66; PULSE 63–86; RESP 18–24; TEMP 35.8–36.5; O2SAT 92–100
[2023-02-03 00:10] LABS: Vancomycin Trough 12.7 ug/mL (10.0-20.0)
[2023-02-03] MEDS: IPRATROPIUM BR 0.02% INH SOLN 0.5 MG/2.5 ML VIAL INHALATION ×4 (01:21→20:03)
[2023-02-03] MEDS: ALBUTEROL SULFATE NEB 2.5 MG/3 ML INH INHALATION ×4 (01:21→20:03)
[2023-02-03] MEDS: CEFEPIME 2 GM/NS 50 ML 2 GM/50 ML BAG IVPB ×3 (01:25→18:34)
[2023-02-03 05:02] LABS: Eosinophils Absolute Auto 0.1 K/mm3 (0-0.3); Eosinophils Percent Auto 1.9 % (0-4.4); Hematocrit 24.4 % (42.0-52.0); Hemoglobin 7.3 g/dL (14.0-18.0); Immature Granulocyte Absolute 0.04 K/mm3 (0.00-0.031); Lymphocytes Absolute Auto 0.69 K/mm3 (0.9-3.2); Lymphocytes Percent Auto 16.5 % (18.3-44.2); Mean Corpuscular HGB Conc 29.9 g/dl (32-36); Mean Corpuscular Hemoglobin 29.8 pg (26-34); Mean Corpuscular Volume 99.6 fl (80-100); Monocytes Absolute Auto 0.6 K/mm3 (0.1-0.6); Monocytes Percent Auto 14.1 % (2.6-8.5); Neutrophils Absolute Auto 2.8 K/mm3 (1.3-6.7); Neutrophils Percent Auto 66.5 % (45.5-73.1); Platelet Count Result 221 k/mm3 (150-375); Red Blood Count 2.45 M/mm3 (4.6-6.20); Red Cell Distribution Width 18.2 % (11.5-14.5); White Blood Count 4.2 K/mm3 (4.5-10.0)
[2023-02-03 05:14] LABS: Blood Urea Nitrogen 25 mg/dL (9-20); Calcium 7.3 mg/dL (8.4-10.2); Carbon Dioxide > 40 mmol/L (22-30); Chloride 92 mmol/L (98-107); Estimated CRCL calculation 61 ml/min; Estimated Glomerular Filt Rate > 60; Glucose 126 mg/dL (65-110); Magnesium 2.3 mg/dL (1.6-2.3); Potassium 3.3 mmol/L (3.4-5.0); Sodium 134 mmol/L (137-145)
[2023-02-03 05:26] LABS: Platelet Estimate Adequate (Adequate)
[2023-02-03 05:27] LABS: Anisocytosis 1+ (NORMAL); Hypochromasia 2+ (NORMAL); Schistocytes Rare (NORMAL)
[2023-02-03] MEDS: LEVOTHYROXINE SODIUM 100 MCG TABLET PO (05:32)
[2023-02-03] MEDS: FLUTICASONE/UMECLIDIN/VILANTER 100-62.5-25 MCG ELLIPTA 1 PUFF INHALATION (09:00)
[2023-02-03] MEDS: POTASSIUM CHLORIDE 20 MEQ ER TABLET PO (09:36)
[2023-02-03] MEDS: PANTOPRAZOLE 40 MG TABLET PO ×2 (09:37→21:13)
[2023-02-03] MEDS: methylPREDNISolone SOD SUCC 125 MG VIAL 60 MG IV PUSH (09:37)
[2023-02-03] MEDS: POTASSIUM CHLORIDE 20 MEQ ER TABLET 40 MEQ PO (09:37)
[2023-02-03] MEDS: EUCERIN CREAM 120 GM JAR 1 APPLIC TOPICAL ×2 (09:37→16:40)
[2023-02-03] MEDS: LIDOCAINE 5% PATCH 1 PATCH TRANSDERM (09:38)
[2023-02-03] MEDS: FUROSEMIDE INJ 40 MG/4 ML VIAL IV PUSH ×2 (09:38→16:40)
[2023-02-03] MEDS: FLUTICASONE PROPIONATE 0.05% NA SPR 16 GM BTL (*BKC) 2 SPRAY NASAL (09:38)
[2023-02-03] MEDS: DUTASTERIDE 0.5 MG CAPSULE PO (09:39)
[2023-02-03] MEDS: CALCIUM CARBONATE (TUMS) 500 MG (200 MG ELEMENTAL) PO (09:39)
[2023-02-03] MEDS: DOCUSATE SODIUM 100 MG CAPSULE PO ×2 (09:39→16:40)
[2023-02-03] MEDS: acetaZOLAMIDE SODIUM FOR INJ 500 MG VIAL IV PUSH (09:39)
[2023-02-03] MEDS: oxyCODONE HCL (*CRX) 5 MG TAB IR PO ×2 (09:39→21:13)
[2023-02-03] MEDS: FERROUS SULFATE 325 MG TABLET DR PO ×2 (09:39→16:40)
[2023-02-03] MEDS: CYANOCOBALAMIN 1,000 MCG TABLET 1000 MCG PO (09:39)
[2023-02-03] MEDS: ACETAMINOPHEN 500 MG TABLET PO (09:40)
[2023-02-03] MEDS: WATER, STERILE FOR INJECTION 10 ML VIAL XX (11:01)
[2023-02-03 11:15] LABS: Pneumococcal Antigen Urine Not Detected (Not Detected)
--- NOTE | 2023-02-03 12:11 | PM.IMPN ---
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 Recently admitted for anemia. Noted to be hypoxic requiring 12 L oxygen via nasal cannula 90 ED. IV Rocephin and azithromycin for pneumonia. Oxygen saturation been up and down last couple days. Has lower extremity edema. Uses 3 to oxygen via nasal cannula chronically but needed to be increased. This has escalated up to require Airvo. Will adjust antibiotic to broaden the coverage with vancomycin and cefepime. Stop ceftriaxone. Continue on azithromycin. Workup with macrocytic anemia with hemoglobin of 8.3. BNP elevated at 995. ABG 7.44/44/65/29. COVID flu RSV negative. Albumin level 3.3 lactate is normal. Renal function. WBC is normal. Venous duplex came back negative for DVT. CTA PE negative for PE does show extensive pneumonia versus congestive heart failure Continue with IV antibiotics as ordered will get sputum culture. Check Legionella Streptococcus mycoplasma. Also possibility of fibrosis flare started on Solu Medrol 60 mg IV daily. Continue to monitor and titrate oxygen On broad-spectrum antibiotic with vancomycin cefepime and azithromycin. MRSA came back negative will stop vancomycin. Sputum culture both samples were discarded. Monitor urine output Continue diuresis for possible CHF component has increased to twice a day diuretics Continue acetazolamide for metabolic alkalosis # anemia with recent EGD showing reflux esophagitis 01/08/2023. Macrocytic anemia. GI and hematology has evaluated the patient. No history of overt bleeding. 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 Since discharge his hemoglobin went down to 7 and needed transfusion. TIBC is low okay. Hemoglobin baseline 10-11. Ferritin level was 400 H in the outlying hospital. H&H Down to 7 again today. . Will transfuse 1 unit of PRBC and Lasix 40 mg after that GI consulted with ongoing anemia which is suspect is related to GI bleed. Evidence of iron deficiency on bone marrow biopsy will order iron infusion H&H dropped again will potentially need capsule study to further evaluate Anticoagulation on hold due to recurrent anemia # history of admission at [place] where he was diagnosed with segmental PE in November of 2022. Treated with anticoagulation on and off. Status post bone marrow biopsy on 01/03/2023 mildly hypercellular marrow for age with maturing trilineage hematopoiesis no excess of blast no atypical infiltrate a regular get of B-cells no evidence of mild dysplastic features. 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 Sequences cells with loss of Y chromosome increase with advancing age Hemoccult was positive in
[2023-02-03] MEDS: MAGNESIUM HYDROXIDE SUSP 30 ML UDC PO (12:24)
[2023-02-03] MEDS: ATORVASTATIN 20 MG TABLET PO (21:12)
[2023-02-03] MEDS: FOLIC ACID 1 MG TABLET PO (21:12)
[2023-02-03] MEDS: SENNOSIDES 8.6 MG TABLET 17.2 MG PO (21:13)
[2023-02-03] MEDS: SERTRALINE HCL 50 MG TABLET PO (21:13)
[2023-02-03] MEDS: AZITHROMYCIN 500 MG/NS 250 ML 500 MG/250 ML BAG 250 MG IVPB (21:18)
[2023-02-04] VITALS (29 sets, daily range): BP systolic 119–130; BP diastolic 54–62; PULSE 61–86; RESP 16–22; TEMP 35.9–36.4; O2SAT 83–100
[2023-02-04] MEDS: IPRATROPIUM BR 0.02% INH SOLN 0.5 MG/2.5 ML VIAL INHALATION ×4 (01:43→20:11)
[2023-02-04] MEDS: ALBUTEROL SULFATE NEB 2.5 MG/3 ML INH INHALATION ×4 (01:44→20:11)
[2023-02-04] MEDS: CEFEPIME 2 GM/NS 50 ML 2 GM/50 ML BAG IVPB ×3 (01:49→17:34)
[2023-02-04 05:08] LABS: Basophils Percent Auto 0.3 % (0.2-1.2); Eosinophils Percent Auto 0.8 % (0-4.4); Hematocrit 24.1 % (42.0-52.0); Immature Granulocyte Absolute 0.04 K/mm3 (0.00-0.031); Lymphocytes Absolute Auto 0.73 K/mm3 (0.9-3.2); Lymphocytes Percent Auto 18.9 % (18.3-44.2); Mean Corpuscular Hemoglobin 29.4 pg (26-34); Mean Corpuscular Volume 101.3 fl (80-100); Mean Platelet Volume 10.4 fl (7.4-10.4); Monocytes Absolute Auto 0.5 K/mm3 (0.1-0.6); Monocytes Percent Auto 11.9 % (2.6-8.5); Neutrophils Absolute Auto 2.6 K/mm3 (1.3-6.7); Neutrophils Percent Auto 67.1 % (45.5-73.1); Platelet Count Result 248 k/mm3 (150-375); Red Blood Count 2.38 M/mm3 (4.6-6.20); Red Cell Distribution Width 17.9 % (11.5-14.5); White Blood Count 3.9 K/mm3 (4.5-10.0)
[2023-02-04 05:22] LABS: Alanine Aminotransferase 16 U/L (6-50); Albumin Level 2.8 g/dL (3.5-5.1); Alkaline Phosphatase 63 U/L (38-126); Anion Gap 0 mmol/L (8-16); Aspartate Amino Transferase 20 U/L (17-59); Bilirubin,Total 0.4 mg/dL (0.2-1.3); Blood Urea Nitrogen 24 mg/dL (9-20); Calcium 7.3 mg/dL (8.4-10.2); Carbon Dioxide 38 mmol/L (22-30); Chloride 94 mmol/L (98-107); Estimated CRCL calculation 55 ml/min; Estimated Glomerular Filt Rate > 60; Glucose 104 mg/dL (65-110); Magnesium 2.6 mg/dL (1.6-2.3); Potassium 3.6 mmol/L (3.4-5.0); Sodium 132 mmol/L (137-145)
[2023-02-04 05:36] LABS: Anisocytosis 1+ (NORMAL); Hypochromasia 2+ (NORMAL); Platelet Estimate Adequate (Adequate)
[2023-02-04 05:37] LABS: Schistocytes Rare (NORMAL)
[2023-02-04] MEDS: LEVOTHYROXINE SODIUM 100 MCG TABLET PO (06:00)
[2023-02-04 06:14] LABS: Legionella pneumophila Ag Ur Not Detected (Not Detected)
[2023-02-04] MEDS: FLUTICASONE/UMECLIDIN/VILANTER 100-62.5-25 MCG ELLIPTA 1 PUFF INHALATION (07:14)
[2023-02-04] MEDS: acetaZOLAMIDE SODIUM FOR INJ 500 MG VIAL IV PUSH (09:06)
[2023-02-04] MEDS: CALCIUM CARBONATE (TUMS) 500 MG (200 MG ELEMENTAL) PO (09:06)
[2023-02-04] MEDS: DUTASTERIDE 0.5 MG CAPSULE PO (09:06)
[2023-02-04] MEDS: POTASSIUM CHLORIDE 20 MEQ ER TABLET PO (09:06)
[2023-02-04] MEDS: methylPREDNISolone SOD SUCC 125 MG VIAL 60 MG IV PUSH (09:07)
[2023-02-04] MEDS: FUROSEMIDE INJ 40 MG/4 ML VIAL IV PUSH ×2 (09:07→17:34)
[2023-02-04] MEDS: CYANOCOBALAMIN 1,000 MCG TABLET 1000 MCG PO (09:07)
[2023-02-04] MEDS: DOCUSATE SODIUM 100 MG CAPSULE PO ×2 (09:07→17:34)
[2023-02-04] MEDS: LIDOCAINE 5% PATCH 1 PATCH TRANSDERM (09:07)
[2023-02-04] MEDS: FLUTICASONE PROPIONATE 0.05% NA SPR 16 GM BTL (*BKC) 2 SPRAY NASAL (09:07)
[2023-02-04] MEDS: FERROUS SULFATE 325 MG TABLET DR PO ×2 (09:07→17:34)
[2023-02-04] MEDS: EUCERIN CREAM 120 GM JAR 1 APPLIC TOPICAL ×2 (09:08→17:35)
[2023-02-04] MEDS: PANTOPRAZOLE 40 MG TABLET PO ×2 (09:08→20:30)
[2023-02-04 09:17] LABS: NT Pro B Type Natriuretic Pept 861 pg/mL (19.9-100)
[2023-02-04 09:58] LABS: Free T4 Free Thyroxine 1.03 ng/mL (0.78-2.19)
--- NOTE | 2023-02-04 13:36 | PM.PNPUL ---
Progress Note: A&P Assessment and Plan (1) ILD (interstitial lung disease): Code(s): J84.9 - Interstitial pulmonary disease, unspecified Status: Acute Assessment and Plan: This 87-year-old man with? history of chronic hypoxemic respiratory failure and pulmonary fibrosis. I spoke with the hospitalist who states the patient has been seen by a water supply engineer for pulmonary fibrosis in [facility] for a few years. Will put a request in to obtain these medical records. The patient tells me that he is been on 3 L home oxygen p.r.n. for 2-[address] scan now with small lung volumes, upper greater than lower lobe ground-glass infiltrates with upper lobe greater than lower lobe honeycombing with areas of mosaic attenuation in the bases. I have no old imaging. Etiology of interstitial lung disease includes: acute exacerbation of ILD (IPF, NSIP related to autoimmune or connective tissue disease, or hypersensitivity pneumonitis), acute interstial pneumonia, infection (bacterial, viral, doubt fungal), fluid overload, possible telomeropathy with bone marrow failure and interstitial lung disease. Doubt transfusion related acute lung injury. COVID, influenza, RSV per RT PCR studies negative, urine Legionella and urine pneumococcal antigens negative. 02/04/23: The patient tells me he is doing much better than he was admitted to the hospital. He states he is 50% back to his normal. He is breathing easier with the oxygen. He was up in the chair yesterday for 5 hours. His phlegm production has nearly resolved and the color is still brown, and he has no hemoptysis. He has a good appetite and has had bowel movements. He is on high-flow nasal cannula 30 L and 50% FiO2 with saturations 98%. His white blood cell count is 3.9, creatinine is 0.9, weight is 99.5, admission weight 103. Cumulative diuresis since admission 25 mL. BNP 861, was 995 on admission on 01/30. TSH and free T4 normal. Chest x-ray with stable low lung volumes and diffuse interstitial infiltrates. Plan: Continue Solu-Medrol 60 mg IV q.day. I will send [facility] screen that includes 11 different auto antibodies, an ANCA screen, a rheumatoid factor, anti CCP antibody, hypersensitivity pneumonitis panel, a CPK, an aldolase level, CRP, ESR and myomarker 3 plus profile. Continue cefepime and azithromycin, both started 02/01. Status post vancomycin 02/01-02/03, DC when nasal MRSA swab negative. I will send HIV and an extended respiratory pathogen panel to [facility]. Agree with as aggressive diuresis as tolerated by his cardiac and renal systems per hospitalist. Currently he is on Lasix 40 IV b.i.d. I will order echocardiogram with bubble study. Discussed with Dr. Claudio. (2) Respiratory failure with hypoxia: Code(s): J96.91 - Respiratory failure, unspecified with hypoxia Status: Acute Assessment and Plan: At baseline patient wears 3 L nasal cannula p.r.n. at home. ABG 7.44 so/45/66 on 12L NC. No evidence of hypercarbic respiratory failure 01/30 20:52 12 L saturation 98% (ABTx and lasix started) 01/31 0800 6 L saturation 96% 01/31:20:00 40 L 80% FiO2 saturations 100% 02/01 08:00 35 L and 65% FiO2 with saturations 100% (medrol 60 Q day 16:00) 02/01 20:00 30 L, 64%, saturations 100% 02/02 08:00 30 L, 60 % FiO2, saturations 91% 02/02 20:00 30 L, 58% FiO2, saturations 94% 02/03 08:00 30 L, 60% FiO2, saturations 97% 02/03 20:00 30 L, 50% FIO2, saturations 98% 02/04 08:00 30 L, 50% FIO2, saturations 98% Plan: Goal saturation 90-94%. Wean FiO2 as tolerated. Subjective Date/time seen: 02/04/23 13:36 Interval history: New Consult date: 02/01/23 Chief complaint: Acute on Chronic Respiratory Failure Pneumonia Narrative: This 87-year-old man presented with increasing shortness of breath lower extremity edema and hypoxemia.? Patient has had multiple medical problems including history of chronic hypoxemic respiratory failure on supplemental oxygen 3 liters/minute on p.r.n. basis,
[2023-02-04 14:51] LABS: Creatine Kinase < 20 U/L (55-170)
[2023-02-04 15:16] LABS: Erythrocyte Sedimentation Rate > 140 mm/hr (0-20)
[2023-02-04 15:33] LABS: HIV 1/2 Ab P24 Ag Result Negative (Negative)
[2023-02-04 15:51] LABS: Rheumatoid Factor < 12.0 IU/ML (<12)
--- NOTE | 2023-02-04 16:26 | PM.IMPN ---
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 Recently admitted for anemia. Noted to be hypoxic requiring 12 L oxygen via nasal cannula 90 ED. IV Rocephin and azithromycin for pneumonia. Oxygen saturation been up and down last couple days. Has lower extremity edema. Uses 3 to oxygen via nasal cannula chronically but needed to be increased. This has escalated up to require Airvo. Will adjust antibiotic to broaden the coverage with vancomycin and cefepime. Stop ceftriaxone. Continue on azithromycin. Workup with macrocytic anemia with hemoglobin of 8.3. BNP elevated at 995. ABG 7.44/44/65/29. COVID flu RSV negative. Albumin level 3.3 lactate is normal. Renal function. WBC is normal. Venous duplex came back negative for DVT. CTA PE negative for PE does show extensive pneumonia versus congestive heart failure Continue with IV antibiotics as ordered will get sputum culture. Check Legionella Streptococcus mycoplasma. Also possibility of fibrosis flare started on Solu Medrol 60 mg IV daily. Continue to monitor and titrate oxygen On broad-spectrum antibiotic with vancomycin cefepime and azithromycin. MRSA came back negative will stop vancomycin. Sputum culture both samples were discarded. Monitor urine output Continue diuresis for possible CHF component has increased to twice a day diuretics Continue acetazolamide for metabolic alkalosis and improving Discussed with pulmonary Finished azithromycin course 5 days. Vancomycin stopped as MRSA came back negative. Continue cefepime # anemia with recent EGD showing reflux esophagitis 01/08/2023. Macrocytic anemia. GI and hematology has evaluated the patient. No history of overt bleeding. 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 Since discharge his hemoglobin went down to 7 and needed transfusion. TIBC is low okay. Hemoglobin baseline 10-11. Ferritin level was 400 H in the outlying hospital. H&H Down to 7 again today. . Will transfuse 1 unit of PRBC and Lasix 40 mg after that GI consulted with ongoing anemia which is suspect is related to GI bleed. Evidence of iron deficiency on bone marrow biopsy will order iron infusion H&H dropped again will potentially need capsule study to further evaluate Anticoagulation on hold due to recurrent anemia # history of admission at [facility] where he was diagnosed with segmental PE in November of 2022. Treated with anticoagulation on and off. Status post bone marrow biopsy on 01/03/2023 mildly hypercellular marrow for age with maturing trilineage hematopoiesis no excess of blast no atypical infiltrate a regular get of B-cells no evidence of mild dysplastic features. Iron store is markedly decreased are nearly absent no ring sideroblasts [place]
[2023-02-04] MEDS: SERTRALINE HCL 50 MG TABLET PO (20:30)
[2023-02-04] MEDS: FOLIC ACID 1 MG TABLET PO (20:30)
[2023-02-04] MEDS: ATORVASTATIN 20 MG TABLET PO (20:31)
[2023-02-04] MEDS: SENNOSIDES 8.6 MG TABLET 17.2 MG PO (20:31)
[2023-02-04] MEDS: oxyCODONE HCL (*CRX) 5 MG TAB IR PO (20:34)
[2023-02-04] MEDS: MAG HYDROX/AL HYDROX/SIMETH 30 ML UDC PO (22:16)
[2023-02-05] VITALS (23 sets, daily range): BP systolic 109–131; BP diastolic 57–78; PULSE 60–80; RESP 18–22; TEMP 36.2–36.7; O2SAT 94–100
--- NOTE | 2023-02-05 | ECHO_ITS ---
Patient Info Name: Aiden Fernandez Age: 87 years : 1935 Gender: Male Ht: 72 in Wt: 220 lbs BSA: 2.27 m2 HR: 71 bpm BP: 128 / 58 mmHg Heart Rhythm: Sinus Rhythm Technical Quality: Fair Exam Date: 02/05/2023 11:40 AM Exam Location: [facility] Patient Status: Inpatient Admit Date: 02/01/2023 Staff Ordering Physician: Jensen Rosado MD Attending Provider: Osmin Leger MD Referring Physician: Alonzo OREILLY; Exam Type: CA echo dop bubble study w con Study Info Indications - HYPOXIA, ASSES LV, RV, RVSP AND PFO Complete two-dimensional, color flow and Doppler transthoracic echocardiogram is performed with agitated saline. Complete two-dimensional, color flow and Doppler transthoracic echocardiogram is performed with contrast to opacify the left ventricle and to improve the deliniation of the left ventricle endocardial borders. Contrast/Agitated Saline Contrast/Ag. Saline: Definity Amount: 3.00 ml Summary 1. Definity contrast administered improved wall motion interpretation. 2. Left ventricular chamber dimension is normal. 3. Left ventricular systolic function is normal, estimated at 55-60%. 4. There is mild concentric increased left ventricular wall thickness. 5. The left ventricular diastolic function is grade I diastolic dysfunction. 6. E/e' 10 is mildly elevated. 7. No pulmonary hypertension, estimated pulmonary arterial systolic pressure is 17 mmHg. Left Ventricle Definity contrast administered improved wall motion interpretation. E/e' 10 is mildly elevated. Left ventricular chamber dimension is normal. Left ventricular systolic function is normal, estimated at 55-60%. There is mild concentric increased left ventricular wall thickness. The left ventricular diastolic function is grade I diastolic dysfunction. Right Ventricle Right ventricular chamber dimension is not well visualized. Left Atria Left atrial chamber dimension is normal. Right Atria Right atrial chamber dimension is normal. Atrial Septum No obvious shunt with color doppler. Interatrial septum not well visualized by 2D and color flow imaging. Aortic Valve The aortic valve is trileaflet. There is no aortic valve stenosis. There is no aortic valve regurgitation. Pulmonic Valve There is no pulmonic regurgitation. Mitral Valve There is no mitral valve stenosis. There is no mitral valve regurgitation. Tricuspid Valve There is no tricuspid valve regurgitation. No pulmonary hypertension, estimated pulmonary arterial systolic pressure is 17 mmHg. Pericardium/Pleural There is no pericardial effusion. Inferior Vena Cava Normal inferior vena cava with >50% collapse upon inspiration consistent with normal right atrial pressure, 5 mmHg. Aorta The aortic root size at the sinus of Valsalva is normal. Left Ventricular Outflow Tract Name Value Normal LVOT Doppler LVOT Peak Gradient 6 mmHg LVOT Mean Gradient 2 mmHg LVOT VTI 37 cm LVOT VTI/AV VTI Ratio 0.8 Pulmonic Valve Name Value Normal
[2023-02-05] MEDS: IPRATROPIUM BR 0.02% INH SOLN 0.5 MG/2.5 ML VIAL INHALATION ×4 (02:20→20:33)
[2023-02-05] MEDS: ALBUTEROL SULFATE NEB 2.5 MG/3 ML INH INHALATION ×4 (02:20→20:33)
[2023-02-05] MEDS: CEFEPIME 2 GM/NS 50 ML 2 GM/50 ML BAG IVPB ×3 (02:41→17:31)
[2023-02-05 05:35] LABS: Basophils Percent Auto 0.2 % (0.2-1.2); Eosinophils Absolute Auto 0.1 K/mm3 (0-0.3); Eosinophils Percent Auto 1.4 % (0-4.4); Hematocrit 24.3 % (42.0-52.0); Hemoglobin 7.1 g/dL (14.0-18.0); Immature Granulocyte Absolute 0.04 K/mm3 (0.00-0.031); Immature Granulocyte Percent A 0.9 % (0-0.5); Lymphocytes Absolute Auto 0.78 K/mm3 (0.9-3.2); Lymphocytes Percent Auto 18.4 % (18.3-44.2); Mean Corpuscular HGB Conc 29.2 g/dl (32-36); Mean Corpuscular Volume 99.2 fl (80-100); Monocytes Absolute Auto 0.6 K/mm3 (0.1-0.6); Neutrophils Absolute Auto 2.8 K/mm3 (1.3-6.7); Neutrophils Percent Auto 66.1 % (45.5-73.1); Platelet Count Result 261 k/mm3 (150-375); Red Blood Count 2.45 M/mm3 (4.6-6.20); Red Cell Distribution Width 17.7 % (11.5-14.5); White Blood Count 4.2 K/mm3 (4.5-10.0)
[2023-02-05 05:53] LABS: Blood Urea Nitrogen 28 mg/dL (9-20); Calcium 7.7 mg/dL (8.4-10.2); Carbon Dioxide > 40 mmol/L (22-30); Chloride 96 mmol/L (98-107); Estimated CRCL calculation 50 ml/min; Estimated Glomerular Filt Rate > 60; Glucose 117 mg/dL (65-110); Magnesium 2.8 mg/dL (1.6-2.3); Potassium 3.4 mmol/L (3.4-5.0); Sodium 138 mmol/L (137-145)
[2023-02-05 06:09] LABS: Platelet Estimate Adequate (Adequate)
[2023-02-05 06:10] LABS: Anisocytosis 1+ (NORMAL); Hypochromasia 1+ (NORMAL); Schistocytes None Seen (NORMAL)
[2023-02-05] MEDS: FUROSEMIDE INJ 40 MG/4 ML VIAL IV PUSH ×2 (06:22→15:40)
[2023-02-05] MEDS: LEVOTHYROXINE SODIUM 100 MCG TABLET PO (06:22)
--- NOTE | 2023-02-05 07:55 | P.CDI_ITS ---
CDI Query Clarification Request Documented history of CHF. CHF noted in the assessment and plan. Elevated BNP on 01/30/23 & 02/04/23 lab work. Edema noted on the 02/03 & 02/04 chest X ray's. Lasix listed as a home medication. Patient receiving Lasix. Patient presented with increasing shortness of breath, edema and increased oxygen needs. Please specify type and acuity of heart failure if known. * Acute * Chronic * Acute on Chronic * Unknown * Systolic * Diastolic * Combined Systolic and Diastolic * Unknown <Radha Wheat RN - Last Filed: 02/05/23 08:01> Provider Comments Acute on chronic diastolic CHF <Alexandro Claudio MD - Last Filed: 02/05/23 16:06>
[2023-02-05] MEDS: acetaZOLAMIDE SODIUM FOR INJ 500 MG VIAL IV PUSH (08:25)
[2023-02-05] MEDS: DUTASTERIDE 0.5 MG CAPSULE PO (08:25)
[2023-02-05] MEDS: methylPREDNISolone SOD SUCC 125 MG VIAL 60 MG IV PUSH (08:25)
[2023-02-05] MEDS: WATER, STERILE FOR INJECTION 10 ML VIAL XX (08:25)
[2023-02-05] MEDS: DOCUSATE SODIUM 100 MG CAPSULE PO ×2 (08:26→16:39)
[2023-02-05] MEDS: FERROUS SULFATE 325 MG TABLET DR PO ×2 (08:26→16:39)
[2023-02-05] MEDS: PANTOPRAZOLE 40 MG TABLET PO ×2 (08:26→20:04)
[2023-02-05] MEDS: LIDOCAINE 5% PATCH 1 PATCH TRANSDERM (08:26)
[2023-02-05] MEDS: POTASSIUM CHLORIDE 20 MEQ ER TABLET PO (08:26)
[2023-02-05] MEDS: CYANOCOBALAMIN 1,000 MCG TABLET 1000 MCG PO (08:26)
[2023-02-05] MEDS: EUCERIN CREAM 120 GM JAR 1 APPLIC TOPICAL ×2 (08:27→16:39)
[2023-02-05] MEDS: CALCIUM CARBONATE (TUMS) 500 MG (200 MG ELEMENTAL) PO (08:27)
[2023-02-05] MEDS: FLUTICASONE PROPIONATE 0.05% NA SPR 16 GM BTL (*BKC) 2 SPRAY NASAL (08:27)
--- NOTE | 2023-02-05 08:54 | PM.PNPUL ---
Progress Note: A&P Assessment and Plan (1) ILD (interstitial lung disease): Code(s): J84.9 - Interstitial pulmonary disease, unspecified Status: Acute Assessment and Plan: This 87-year-old man with? history of chronic hypoxemic respiratory failure and pulmonary fibrosis. I spoke with the hospitalist who states the patient has been seen by a sr account executive for pulmonary fibrosis in [facility] for a few years. Will put a request in to obtain these medical records. The patient tells me that he is been on 3 L home oxygen p.r.n. for 2-[address] scan now with small lung volumes, upper greater than lower lobe ground-glass infiltrates with upper lobe greater than lower lobe honeycombing with areas of mosaic attenuation in the bases. I have no old imaging. Etiology of interstitial lung disease includes: acute exacerbation of ILD (IPF, NSIP related to autoimmune or connective tissue disease, or hypersensitivity pneumonitis), acute interstial pneumonia, infection (bacterial, viral, doubt fungal), fluid overload, possible telomeropathy with bone marrow failure and interstitial lung disease. Doubt transfusion related acute lung injury. COVID, influenza, RSV per RT PCR studies negative, urine Legionella and urine pneumococcal antigens negative. 02/04/23: The patient tells me he is doing much better than he was admitted to the hospital. He states he is 50% back to his normal. He is breathing easier with the oxygen. He was up in the chair yesterday for 5 hours. His phlegm production has nearly resolved and the color is still brown, and he has no hemoptysis. He has a good appetite and has had bowel movements. He is on high-flow nasal cannula 30 L and 50% FiO2 with saturations 98%. His white blood cell count is 3.9, creatinine is 0.9, weight is 99.5, admission weight 103. Cumulative diuresis since admission 25 mL. BNP 861, was 995 on admission on 01/30. TSH and free T4 normal. Chest x-ray with stable low lung volumes and diffuse interstitial infiltrates. Plan: Continue Solu-Medrol 60 mg IV q.day. I will send DENAE screen that includes 11 different auto antibodies, an ANCA screen, a rheumatoid factor, anti CCP antibody, hypersensitivity pneumonitis panel, a CPK, an aldolase level, CRP, ESR and myomarker 3 plus profile. Continue cefepime and azithromycin, both started 02/01. Status post vancomycin 02/01-02/03, DC when nasal MRSA swab negative. I will send HIV and an extended respiratory pathogen panel to [employer]. Agree with as aggressive diuresis as tolerated by his cardiac and renal systems per hospitalist. Currently he is on Lasix 40 IV b.i.d. I will order echocardiogram with bubble study. 02/05 patient told me he sees a sr account executive named Dr. Jensen at [facility]. He has seen this pulmonary doctor for 2-3 years and the patient states that he was being treated for fibrosis of the left lung. The patient does not remember if he has ever done any PFTs or CT scans. Medical records have been requested. Today the patient states he feels about the same, 50% back to baseline. He denies cough, phlegm production, hemoptysis, fever, chills, or rigors. He was out of bed yesterday for approximately 7 hours. White blood cell count 4.2, hemoglobin 7.1, creatinine 1.0. Weight 95.2 decreased from admission of 05/15 with a net diuresis of 1.6 L since admission. When I entered the room the patient was on high-flow 30 L and 46% FiO2 with saturations 100%. I changed him to high-flow nasal cannula at 15 L and saturations remained 100% and I decreased his flow over the next 17 minutes and on 5 L for 8 minutes he was 97% satation. CPK less than 20, CRP 3.0, ESR greater than 140, rheumatoid factor less than 12, HIV negative. Plan: Patient improved. continue Solu-Medrol 60 mg IV q.day. elevated CRP and ESR with negative rheumatoid factor and negative CPK, additional serologies for autoimmune or connective tissue disease pending. Continue cefepime, d
--- NOTE | 2023-02-05 10:06 | PCOTNOTE ---
Attempted OT evaluation. Patient reporting dizziness/light headedness at this time. Blood sugars in the 300s. Nursing advised to check back later. Will continue to attempt.
[2023-02-05 12:11] LABS: Glucose Point of Care 394 mg/dl (65-105)
[2023-02-05 14:44] LABS: Mycoplasma IgM Antibody Titer 38 U/mL (<770)
--- NOTE | 2023-02-05 15:58 | PM.IMPN ---
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 Recently admitted for anemia. Noted to be hypoxic requiring 12 L oxygen via nasal cannula in ED. IV Rocephin and azithromycin for pneumonia. Oxygen saturation been up and down last couple days. Has lower extremity edema. Uses 3 to oxygen via nasal cannula chronically but needed to be increased. This has escalated up to require Airvo. Will adjust antibiotic to broaden the coverage with vancomycin and cefepime. Stop ceftriaxone. Continue on azithromycin. Workup with macrocytic anemia with hemoglobin of 8.3. BNP elevated at 995. ABG 7.44/44/65/29. COVID flu RSV negative. Albumin level 3.3 lactate is normal. Renal function. WBC is normal. Venous duplex came back negative for DVT. CTA PE negative for PE does show extensive pneumonia versus congestive heart failure Continue with IV antibiotics as ordered will get sputum culture. Check Legionella Streptococcus mycoplasma. Also possibility of fibrosis flare started on Solu Medrol 60 mg IV daily. Continue to monitor and titrate oxygen and since then improving On broad-spectrum antibiotic with vancomycin cefepime and azithromycin. MRSA came back negative will stop vancomycin. Sputum culture both samples were discarded. Finished azithromycin course 5 days continue cefepime Monitor urine output Continue diuresis for possible CHF component has increased q.8 hours with dizziness will back down to b.i.d. monitor renal function Continue acetazolamide for metabolic alkalosis and improving Discussed with pulmonary Echo with bubble study pending # anemia with recent EGD showing reflux esophagitis 01/08/2023. Macrocytic anemia. GI and hematology has evaluated the patient. No history of overt bleeding. 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 Since discharge his hemoglobin went down to 7 and needed transfusion. TIBC is low okay. Hemoglobin baseline 10-11. Ferritin level was 400 H in the outlying hospital. H&H Down to 7 again today. . Will transfuse 1 unit of PRBC and Lasix 40 mg after that GI consulted with ongoing anemia which is suspect is related to GI bleed. Evidence of iron deficiency on bone marrow biopsy will order iron infusion H&H dropped again will potentially need capsule study to further evaluate Anticoagulation on hold due to recurrent anemia H&H remained stable now since off anticoagulation # history of admission at [place] where he was diagnosed with segmental PE in November of 2022. Treated with anticoagulation on and off. Status post bone marrow biopsy on 01/03/2023 mildly hypercellular marrow for age with maturing trilineage hematopoiesis no excess of blast no atypical infiltrate a regular get of B-cells no evidence
[2023-02-05] MEDS: ATORVASTATIN 20 MG TABLET PO (20:03)
[2023-02-05] MEDS: SENNOSIDES 8.6 MG TABLET 17.2 MG PO (20:03)
[2023-02-05] MEDS: SERTRALINE HCL 50 MG TABLET PO (20:04)
[2023-02-05] MEDS: FOLIC ACID 1 MG TABLET PO (20:04)
[2023-02-06] VITALS (13 sets, daily range): BP systolic 108–151; BP diastolic 61–81; PULSE 63–84; RESP 18–22; TEMP 36–36.4; O2SAT 90–100
[2023-02-06] MEDS: CEFEPIME 2 GM/NS 50 ML 2 GM/50 ML BAG IVPB ×3 (01:41→17:14)
[2023-02-06] MEDS: IPRATROPIUM BR 0.02% INH SOLN 0.5 MG/2.5 ML VIAL INHALATION ×2 (02:29→08:20)
[2023-02-06] MEDS: ALBUTEROL SULFATE NEB 2.5 MG/3 ML INH INHALATION ×2 (02:29→08:20)
[2023-02-06 05:33] LABS: Basophils Percent Auto 0.2 % (0.2-1.2); Eosinophils Percent Auto 0.9 % (0-4.4); Hematocrit 25.5 % (42.0-52.0); Hemoglobin 7.3 g/dL (14.0-18.0); Immature Granulocyte Absolute 0.06 K/mm3 (0.00-0.031); Immature Granulocyte Percent A 1.3 % (0-0.5); Lymphocytes Absolute Auto 0.84 K/mm3 (0.9-3.2); Lymphocytes Percent Auto 18.4 % (18.3-44.2); Mean Corpuscular HGB Conc 28.6 g/dl (32-36); Mean Corpuscular Volume 101.2 fl (80-100); Monocytes Absolute Auto 0.5 K/mm3 (0.1-0.6); Monocytes Percent Auto 11.8 % (2.6-8.5); Neutrophils Absolute Auto 3.1 K/mm3 (1.3-6.7); Neutrophils Percent Auto 67.4 % (45.5-73.1); Platelet Count Result 256 k/mm3 (150-375); Red Blood Count 2.52 M/mm3 (4.6-6.20); Red Cell Distribution Width 17.6 % (11.5-14.5); White Blood Count 4.6 K/mm3 (4.5-10.0)
[2023-02-06 05:42] LABS: Alanine Aminotransferase 22 U/L (6-50); Albumin Level 3.1 g/dL (3.5-5.1); Alkaline Phosphatase 74 U/L (38-126); Anion Gap 2 mmol/L (8-16); Aspartate Amino Transferase 24 U/L (17-59); Bilirubin,Total 0.5 mg/dL (0.2-1.3); Blood Urea Nitrogen 29 mg/dL (9-20); Calcium 7.8 mg/dL (8.4-10.2); Carbon Dioxide 38 mmol/L (22-30); Chloride 96 mmol/L (98-107); Estimated CRCL calculation 50 ml/min; Estimated Glomerular Filt Rate > 60; Glucose 108 mg/dL (65-110); Magnesium 2.7 mg/dL (1.6-2.3); Potassium 3.5 mmol/L (3.4-5.0); Sodium 136 mmol/L (137-145)
[2023-02-06 06:12] LABS: Anisocytosis 1+ (NORMAL); Platelet Estimate Adequate (Adequate)
[2023-02-06 06:13] LABS: Hypochromasia 3+ (NORMAL); Schistocytes None Seen (NORMAL); Stomatocytes 1+ (NORMAL)
[2023-02-06] MEDS: LEVOTHYROXINE SODIUM 100 MCG TABLET PO (06:52)
[2023-02-06 08:13] LABS: NT Pro B Type Natriuretic Pept 577 pg/mL (19.9-100)
[2023-02-06] MEDS: LIDOCAINE 5% PATCH 1 PATCH TRANSDERM (08:53)
[2023-02-06] MEDS: methylPREDNISolone SOD SUCC 125 MG VIAL 60 MG IV PUSH (08:53)
[2023-02-06] MEDS: POTASSIUM CHLORIDE 20 MEQ ER TABLET PO (08:54)
[2023-02-06] MEDS: FUROSEMIDE INJ 40 MG/4 ML VIAL IV PUSH ×2 (08:54→17:14)
[2023-02-06] MEDS: CALCIUM CARBONATE (TUMS) 500 MG (200 MG ELEMENTAL) PO (08:54)
[2023-02-06] MEDS: DUTASTERIDE 0.5 MG CAPSULE PO (08:54)
[2023-02-06] MEDS: FERROUS SULFATE 325 MG TABLET DR PO ×2 (08:54→17:14)
[2023-02-06] MEDS: PANTOPRAZOLE 40 MG TABLET PO ×2 (08:54→21:41)
[2023-02-06] MEDS: FLUTICASONE PROPIONATE 0.05% NA SPR 16 GM BTL (*BKC) 2 SPRAY NASAL (08:54)
[2023-02-06] MEDS: WATER, STERILE FOR INJECTION 10 ML VIAL XX (08:54)
[2023-02-06] MEDS: DOCUSATE SODIUM 100 MG CAPSULE PO ×2 (08:54→17:14)
[2023-02-06] MEDS: acetaZOLAMIDE SODIUM FOR INJ 500 MG VIAL IV PUSH (08:54)
[2023-02-06] MEDS: CYANOCOBALAMIN 1,000 MCG TABLET 1000 MCG PO (08:54)
[2023-02-06] MEDS: EUCERIN CREAM 120 GM JAR 1 APPLIC TOPICAL ×2 (08:55→17:15)
[2023-02-06 09:16] LABS: Methylmalonic Acid 282 nmol/L (87-318)
--- NOTE | 2023-02-06 09:32 | PM.PNPUL ---
Progress Note: A&P Assessment and Plan (1) ILD (interstitial lung disease): Code(s): J84.9 - Interstitial pulmonary disease, unspecified Status: Acute Assessment and Plan: This 87-year-old man with? history of chronic hypoxemic respiratory failure and pulmonary fibrosis. I spoke with the hospitalist who states the patient has been seen by a chief specialist leed for pulmonary fibrosis in [facility] for a few years. Will put a request in to obtain these medical records. The patient tells me that he is been on 3 L home oxygen p.r.n. for 2-[address] scan now with small lung volumes, upper greater than lower lobe ground-glass infiltrates with upper lobe greater than lower lobe honeycombing with areas of mosaic attenuation in the bases. I have no old imaging. Etiology of interstitial lung disease includes: acute exacerbation of ILD (IPF, NSIP related to autoimmune or connective tissue disease, or hypersensitivity pneumonitis), acute interstial pneumonia, infection (bacterial, viral, doubt fungal), fluid overload, possible telomeropathy with bone marrow failure and interstitial lung disease. Doubt transfusion related acute lung injury. COVID, influenza, RSV per RT PCR studies negative, urine Legionella and urine pneumococcal antigens negative. 02/04/23: The patient tells me he is doing much better than he was admitted to the hospital. He states he is 50% back to his normal. He is breathing easier with the oxygen. He was up in the chair yesterday for 5 hours. His phlegm production has nearly resolved and the color is still brown, and he has no hemoptysis. He has a good appetite and has had bowel movements. He is on high-flow nasal cannula 30 L and 50% FiO2 with saturations 98%. His white blood cell count is 3.9, creatinine is 0.9, weight is 99.5, admission weight 103. Cumulative diuresis since admission 25 mL. BNP 861, was 995 on admission on 01/30. TSH and free T4 normal. Chest x-ray with stable low lung volumes and diffuse interstitial infiltrates. Plan: Continue Solu-Medrol 60 mg IV q.day. I will send DENAE screen that includes 11 different auto antibodies, an ANCA screen, a rheumatoid factor, anti CCP antibody, hypersensitivity pneumonitis panel, a CPK, an aldolase level, CRP, ESR and myomarker 3 plus profile. Continue cefepime and azithromycin, both started 02/01. Status post vancomycin 02/01-02/03, DC when nasal MRSA swab negative. I will send HIV and an extended respiratory pathogen panel to [employer] [facility]. Agree with as aggressive diuresis as tolerated by his cardiac and renal systems per hospitalist. Currently he is on Lasix 40 IV b.i.d. I will order echocardiogram with bubble study. 02/05 patient told me he sees a chief specialist leed named Dr. Jensen at [facility]. He has seen this pulmonary doctor for 2-3 years and the patient states that he was being treated for fibrosis of the left lung. The patient does not remember if he has ever done any PFTs or CT scans. Medical records have been requested. Today the patient states he feels about the same, 50% back to baseline. He denies cough, phlegm production, hemoptysis, fever, chills, or rigors. He was out of bed yesterday for approximately 7 hours. White blood cell count 4.2, hemoglobin 7.1, creatinine 1.0. Weight 95.2 decreased from admission of 05/15 with a net diuresis of 1.6 L since admission. When I entered the room the patient was on high-flow 30 L and 46% FiO2 with saturations 100%. I changed him to high-flow nasal cannula at 15 L and saturations remained 100% and I decreased his flow over the next 17 minutes and on 5 L for 8 minutes he was 97% satation. CPK less than 20, CRP 3.0, ESR greater than 140, rheumatoid factor less than 12, HIV negative. Plan: Patient improved. continue Solu-Medrol 60 mg IV q.day. elevated CRP and ESR with negative rheumatoid factor and negative CPK, additional serologies for autoimmune or connective tissue disease pending. Continue cefepime, d
--- NOTE | 2023-02-06 10:07 | PM.IMPN ---
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 Recently admitted for anemia. Noted to be hypoxic requiring 12 L oxygen via nasal cannula in ED. IV Rocephin and azithromycin for pneumonia. Oxygen saturation been up and down last couple days. Has lower extremity edema. Uses 3 to oxygen via nasal cannula chronically but needed to be increased. This has escalated up to require Airvo. Will adjust antibiotic to broaden the coverage with vancomycin and cefepime. Stop ceftriaxone. Continue on azithromycin. Workup with macrocytic anemia with hemoglobin of 8.3. BNP elevated at 995. ABG 7.44/44/65/29. COVID flu RSV negative. Albumin level 3.3 lactate is normal. Renal function. WBC is normal. Venous duplex came back negative for DVT. CTA PE negative for PE does show extensive pneumonia versus congestive heart failure Continue with IV antibiotics as ordered will get sputum culture. Check Legionella Streptococcus mycoplasma. Also possibility of fibrosis flare started on Solu Medrol 60 mg IV daily. Continue to monitor and titrate oxygen and since then improving On broad-spectrum antibiotic with vancomycin cefepime and azithromycin. MRSA came back negative will stop vancomycin. Sputum culture both samples were discarded. Finished azithromycin course 5 days continue cefepime Monitor urine output Continue diuresis for possible CHF component has increased q.8 hours with dizziness will back down to b.i.d. 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 Macrocytic anemia. GI and hematology has evaluated the patient. No history of overt bleeding. 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 Since discharge his hemoglobin went down to 7 and needed transfusion. TIBC is low okay. Hemoglobin baseline 10-11. Ferritin level was 400 H in the outlying hospital. H&H Down to 7 again today. . Will transfuse 1 unit of PRBC and Lasix 40 mg after that GI consulted with ongoing anemia which is suspect is related to GI bleed. Evidence of iron deficiency on bone marrow biopsy will order iron infusion H&H dropped again will potentially need capsule study to further evaluate Anticoagulation on hold due to recurrent anemia H&H remained stable now since off anticoagulation # history of admission at [place] where he was diagnosed with segmental PE in November of 2022. Treated with anticoagulation on and off. Status post bone marrow biopsy on 01/03/2023 mildly hypercellular marrow for age with maturing trilineage hematopoiesis no excess of dave
[2023-02-06] MEDS: FLUTICASONE/UMECLIDIN/VILANTER 100-62.5-25 MCG ELLIPTA 1 PUFF INHALATION (10:16)
[2023-02-06 11:58] LABS: ANA Cascade Screen Negative (Negative)
[2023-02-06] MEDS: predniSONE 20 MG TABLET 60 MG PO (12:41)
[2023-02-06 17:37] LABS: Soluble Transferrin Receptor 2.76 mg/L (0.76-1.76)
--- NOTE | 2023-02-06 21:09 | PC.NURSE ---
Patient transferred to [facility] in stable condition with all personal belongings. Report given to Candelaria VÁSQUEZ. Family contacted and made aware of transfer.
[2023-02-06] MEDS: FOLIC ACID 1 MG TABLET PO (21:41)
[2023-02-06] MEDS: ATORVASTATIN 20 MG TABLET PO (21:41)
[2023-02-06] MEDS: SENNOSIDES 8.6 MG TABLET 17.2 MG PO (21:41)
[2023-02-06] MEDS: SERTRALINE HCL 50 MG TABLET PO (21:41)
[2023-02-07] MEDS: CEFEPIME 2 GM/NS 50 ML 2 GM/50 ML BAG IVPB ×3 (01:25→17:08)
[2023-02-07 05:18] VITALS: BP 151/80; PULSE 60; RESP 16; TEMP 36.6; O2SAT 100
[2023-02-07] MEDS: LEVOTHYROXINE SODIUM 100 MCG TABLET PO (05:34)
[2023-02-07] MEDS: FLUTICASONE/UMECLIDIN/VILANTER 100-62.5-25 MCG ELLIPTA 1 PUFF INHALATION (06:56)
[2023-02-07 07:00] VITALS: PULSE 64; RESP 18; O2SAT 98
[2023-02-07] MEDS: CALCIUM CARBONATE (TUMS) 500 MG (200 MG ELEMENTAL) PO (08:37)
[2023-02-07] MEDS: FERROUS SULFATE 325 MG TABLET DR PO ×2 (08:37→16:55)
[2023-02-07] MEDS: DOCUSATE SODIUM 100 MG CAPSULE PO ×2 (08:37→16:55)
[2023-02-07] MEDS: POTASSIUM CHLORIDE 20 MEQ ER TABLET PO (08:38)
[2023-02-07] MEDS: DUTASTERIDE 0.5 MG CAPSULE PO (08:38)
[2023-02-07] MEDS: PANTOPRAZOLE 40 MG TABLET PO ×2 (08:38→20:07)
[2023-02-07] MEDS: FLUTICASONE PROPIONATE 0.05% NA SPR 16 GM BTL (*BKC) 2 SPRAY NASAL (08:38)
[2023-02-07] MEDS: LIDOCAINE 5% PATCH 1 PATCH TRANSDERM (08:38)
[2023-02-07] MEDS: CYANOCOBALAMIN 1,000 MCG TABLET 1000 MCG PO (08:38)
[2023-02-07] MEDS: EUCERIN CREAM 120 GM JAR 1 APPLIC TOPICAL ×2 (08:39→17:09)
[2023-02-07] MEDS: FUROSEMIDE INJ 40 MG/4 ML VIAL IV PUSH ×2 (08:39→16:55)
[2023-02-07] MEDS: MAGNESIUM HYDROXIDE SUSP 30 ML UDC PO (08:56)
--- NOTE | 2023-02-07 08:59 | PM.PNPUL ---
Progress Note: A&P Assessment and Plan (1) ILD (interstitial lung disease): Code(s): J84.9 - Interstitial pulmonary disease, unspecified Status: Acute Assessment and Plan: This 87-year-old man with? history of chronic hypoxemic respiratory failure on 2 L at exertion and per his outpatient Pulmonary note on 08/20/2022 upper lobe ground-glass infiltrates first identified on CT scan 09/2020. No change in ground-glass opacities with a peripheral predominance on CT scan from 05/2022. Followed by manager fleet, Dr. Jensen, last seen on 08/20/2022 with a diagnosis of pulmonary fibrosis in the plan was to obtain a high-resolution CT scan at that time. The patient does not remember if this was performed. The patient tells me that he is been on 3 L home oxygen p.r.n. for 2-[address] scan now with small lung volumes, upper greater than lower lobe ground-glass infiltrates with upper lobe greater than lower lobe honeycombing with areas of mosaic attenuation in the bases. I have no old imaging. Etiology of interstitial lung disease includes: acute exacerbation of ILD (IPF, NSIP related to autoimmune or connective tissue disease, or hypersensitivity pneumonitis), acute interstial pneumonia, infection (bacterial, viral, doubt fungal), fluid overload, possible telomeropathy with bone marrow failure and interstitial lung disease. Doubt transfusion related acute lung injury. COVID, influenza, RSV per RT PCR studies negative, urine Legionella and urine pneumococcal antigens negative. 02/04/23: The patient tells me he is doing much better than he was admitted to the hospital. He states he is 50% back to his normal. He is breathing easier with the oxygen. He was up in the chair yesterday for 5 hours. His phlegm production has nearly resolved and the color is still brown, and he has no hemoptysis. He has a good appetite and has had bowel movements. He is on high-flow nasal cannula 30 L and 50% FiO2 with saturations 98%. His white blood cell count is 3.9, creatinine is 0.9, weight is 99.5, admission weight 103. Cumulative diuresis since admission 25 mL. BNP 861, was 995 on admission on 01/30. TSH and free T4 normal. Chest x-ray with stable low lung volumes and diffuse interstitial infiltrates. Plan: Continue Solu-Medrol 60 mg IV q.day. I will send DENAE screen that includes 11 different auto antibodies, an ANCA screen, a rheumatoid factor, anti CCP antibody, hypersensitivity pneumonitis panel, a CPK, an aldolase level, CRP, ESR and myomarker 3 plus profile. Continue cefepime and azithromycin, both started 02/01. Status post vancomycin 02/01-02/03, DC when nasal MRSA swab negative. I will send HIV and an extended respiratory pathogen panel to [employer]. Agree with as aggressive diuresis as tolerated by his cardiac and renal systems per hospitalist. Currently he is on Lasix 40 IV b.i.d. I will order echocardiogram with bubble study. 02/05 patient told me he sees a manager fleet named Dr. Jensen at [facility]. He has seen this pulmonary doctor for 2-3 years and the patient states that he was being treated for fibrosis of the left lung. The patient does not remember if he has ever done any PFTs or CT scans. Medical records have been requested. Today the patient states he feels about the same, 50% back to baseline. He denies cough, phlegm production, hemoptysis, fever, chills, or rigors. He was out of bed yesterday for approximately 7 hours. White blood cell count 4.2, hemoglobin 7.1, creatinine 1.0. Weight 95.2 decreased from admission of 05/15 with a net diuresis of 1.6 L since admission. When I entered the room the patient was on high-flow 30 L and 46% FiO2 with saturations 100%. I changed him to high-flow nasal cannula at 15 L and saturations remained 100% and I decreased his flow over the next 17 minutes and on 5 L for 8 minutes he was 97% satation. CPK less than 20, CRP 3.0, ESR greater than 140, rheumatoid factor less than 12, HIV nega
[2023-02-07] MEDS: predniSONE 20 MG TABLET 60 MG PO (10:00)
[2023-02-07] MEDS: ALBUTEROL SULFATE (*SP) AEROSOL 1 PUFF 2 PUFF INHALATION ×2 (12:57→21:14)
[2023-02-07 13:00] VITALS: PULSE 84; RESP 20
--- NOTE | 2023-02-07 15:29 | PM.IMPN ---
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 - Other megaloblastic anemias, not elsewhere classified Status: Acute (4) Status post placement of cardiac pacemaker: Code(s): Z95.0 - Presence of cardiac pacemaker Status: Acute (5) CHF (congestive heart failure): Code(s): I50.9 - Heart failure, unspecified Status: Acute (6) Anemia: Qualifiers: Anemia type: other cause Other causes of anemia: other cause, not classified Qualified Code(s): D64.89 - Other specified anemias Code(s): D64.9 - Anemia, unspecified Status: Acute Plan Interstitial lung disease exacerbation, acute respiratory failure This is the 87-year-old male with past medical history of anemia presented with shortness of breath. Noted to be hypoxic requiring 12 L oxygen via nasal cannula in ED. IV Rocephin and azithromycin for pneumonia. ABG 7.44/44/65/29. COVID flu RSV negative. CTA PE negative for PE does show extensive pneumonia versus congestive heart failure Continue with IV antibiotics as ordered will get sputum culture. Consult loom technician Now finished azithromycin and cefepime Transition to tapering down prednisone p.o. per loom technician recommendation Fluid overload Continue diuresis for possible CHF component has increased q.8 hours with dizziness will back down to b.i.d. also received acetazolamide for metabolic alkalosis and improving Appreciate loom technician consultation Echo with bubble study reveals normal EF 55-60%, grade 1 diastolic dysfunction Continue Lasix 40 mg b.i.d. p.o. on discharge anemia with recent EGD showing reflux esophagitis 01/08/2023. Macrocytic anemia. GI and hematology has evaluated the patient. No history of overt bleeding. 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 Since discharge his hemoglobin went down to 7 and needed transfusion. TIBC is low okay. Hemoglobin baseline 10-11. Ferritin level was 400 H in the outlying hospital. H&H Down to 7 again during hospitalization, transfused 1 unit of PRBC and Lasix 40 mg after that GI consulted with ongoing anemia which is suspect is related to GI bleed. Evidence of iron deficiency on bone marrow biopsy will order iron infusion H&H dropped again will potentially need capsule study to further evaluate Anticoagulation on hold due to recurrent anemia H&H remained stable now since off anticoagulation history of admission at [facility] where he was diagnosed with segmental PE in November of 2022. Treated with anticoagulation on and off. Status post bone marrow biopsy on 01/03/2023 mildly hypercellular marrow for age with maturing trilineage hematopoiesis no excess of blast no atypical infiltrate a regular get of B-cells no evidence of mild dysplastic features. 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 Subjective Date/time seen: 02/07/23 15:29 Interval history: Patient feels better today, still has some cough and general weakness. Patient is on nasal cannular. Patient denies chest pain, abdomen pain nausea vomiting diarrhea Exam Narrative: General physical exam: Patient feels very tired and fatigued, well-
--- NOTE | 2023-02-07 15:40 | PM.DS ---
DS: Summary Time Spent with Patient Time attestation: Total time spent providing and/or coordinating discharge services: DS: Data Data Completed and Pending Labs on day of discharge: Labs from last 24 hours 02/02/23 03:53 [facility] Receptr 2.76 H Discharge Plan Discharge Attending physician on discharge: Bryan Bose Consulting providers: Dianne Travis; Delfin Venegas; Matthew Gooden; Nikita Hope Discharging Clinician: Bryan Bose Anticipated Discharge Date/Time: 02/07/23 13:17 Patient Disposition: Inpatient Rehab Facility Activity: as tolerated Diet: as tolerated Patient Instructions: Apixaban (By mouth), Heart Failure (DC) Stand Alone Forms: General Discharge Information Discharge Medications: New prednisone 10 mg tablet 50 mg PO DAILY Qty: 15 0RF Rx Instructions: then 10mg daily x 3 days furosemide [Lasix] 40 mg tablet 40 mg PO BID Qty: 60 0RF prednisone 10 mg tablet 60 mg PO DAILY Qty: 12 0RF Rx Instructions: then 50 mg daily po x3 prednisone 10 mg tablet 10 mg PO DAILY Qty: 3 0RF Continued atorvastatin 20 mg tablet 20 mg PO HS cyanocobalamin (vitamin B-12) 1,000 mcg Tablet 1,000 mcg PO DAILY pantoprazole 40 mg Tablet,Delayed Release (Dr/Ec) 40 mg PO BID Qty: 0 ferrous sulfate 325 mg (65 mg iron) Tablet 325 mg PO BID docusate sodium 100 mg Capsule 100 mg PO BID folic acid 1 mg Tablet 1 mg PO HS fluticasone propionate 50 mcg/actuation [place],Suspension 2 spray INTRANASAL DAILY Rx Instructions: administer into each nostril oxycodone 5 mg Tablet 5 mg PO Q4H PRN (Reason: pain 7-10) dutasteride 0.5 mg capsule 0.5 mg PO DAILY Trelegy Ellipta 100-62.5-25 mcg blister with device 1 inh INHALATION DAILY sennosides [senna] 8.6 mg Tablet 17.2 mg PO HS Qty: 0 levothyroxine 100 mcg Tablet 100 mcg PO DAILY Qty: 0 ergocalciferol (vitamin D2) 1,250 mcg (50,000 unit) Capsule 1,250 mcg PO WEEKLY Qty: 0 Rx Instructions: weekly on Saturday sertraline 50 mg Tablet 50 mg PO HS Qty: 0 Pro-Stat AWC 17-100 gram-kcal/30 mL Liquid 1 ea PO DAILY Qty: 0 Rx Instructions: 30 ml daily potassium chloride 20 mEq Tablet Extended Release 20 meq PO DAILY Qty: 0 Triple Antibiotic 3.5mg-400 unit- 5,000 unit/gram Ointment 1 applic topical PRN PRN (Reason: with dressing changes ) Qty: 9.35 0RF Rx Instructions: buttocks lidocaine 4 % Adhesive Patch,Medicated 1 patch TOPICAL BID Rx Instructions: apply to back acetaminophen 500 mg Tablet 500 mg PO Q6H PRN (Reason: pain or fever) magnesium hydroxide 400 mg/5 mL Suspension 400 mg PO DAILY PRN (Reason: Constipation) Eliquis 5 mg tablet 5 mg PO Q12H calcium carbonate 500 mg calcium (1,250 mg) tablet,chewable 200 mg PO DAILY aspirin 81 mg Tablet,Chewable 81 mg PO DAILY mupirocin 2 % Ointment See Rx Instructions .ROUTE .COMPLEX Rx Instructions: 1 application topically, daily and PRN to buttocks albuterol sulfate [Ventolin HFA] 90 mcg/actuation Hfa Aerosol Inhaler 2 puff INHALATION TID PRN (Reason: Wheezing) Eucerin Cream 1 applic TOPICAL BID Rx Instructions: apply to BUE Discontinued furosemide 40 mg Tablet 40 mg PO DAILY Rx Instructions: one time daily for six days starting on 01/30/2023 furosemide 20 mg Tablet 20 mg PO DAILY Rx Instructions: One time daily starting 02/05/2023 Date of admission: 02/01/23 08:55 Primary Care Provider: PHYSICIAN NOT ON STAFF,NONSTAFF Admitting Provider: Osmin Leger Attending physician on admission: Osmin Leger Condition: Improved
[2023-02-07 16:00] VITALS: BP 158/83; PULSE 81; RESP 20; TEMP 36.8; O2SAT 94
[2023-02-07 16:33] LABS: Adenovirus DNA Not Detected (Not Detected); Chlamydophila pneumoniae Not Detected (Not Detected); Coronavirus 229E Not Detected (Not Detected); Coronavirus HKU1 Not Detected (Not Detected); Coronavirus NL63 Not Detected (Not Detected); Coronavirus OC43 Not Detected (Not Detected); Human Metapneumovirus Not Detected (Not Detected); Human Parainfluenza Virus 1 Not Detected (Not Detected); Human Parainfluenza Virus 2 Not Detected (Not Detected); Human Parainfluenza Virus 3 Not Detected (Not Detected); Human Parainfluenza Virus 4 Not Detected (Not Detected); Human RSV B Not Detected (Not Detected); Influenza A Not Detected (Not Detected); Influenza B Not Detected (Not Detected); Mycoplasma pneumoniae Not Detected (Not Detected); Rhinovirus/Enterovirus Not Detected (Not Detected)
[2023-02-07] MEDS: SENNOSIDES 8.6 MG TABLET 17.2 MG PO (20:07)
[2023-02-07] MEDS: FOLIC ACID 1 MG TABLET PO (20:07)
[2023-02-07] MEDS: ATORVASTATIN 20 MG TABLET PO (20:07)
[2023-02-07] MEDS: SERTRALINE HCL 50 MG TABLET PO (20:07)
[2023-02-07 20:14] VITALS: BP 133/59; PULSE 68; RESP 18; TEMP 36.6; O2SAT 96
[2023-02-07 21:14] VITALS: PULSE 69; O2SAT 96
[2023-02-07] MEDS: oxyCODONE HCL (*CRX) 5 MG TAB IR PO (22:18)
[2023-02-07 22:27] LABS: Anti Cyclic Citrullinated Pept <16 Units (<20)
[2023-02-08 05:22] VITALS: BP 148/70; PULSE 63; RESP 18; TEMP 36.6; O2SAT 96
[2023-02-08] MEDS: LEVOTHYROXINE SODIUM 100 MCG TABLET PO (05:26)
[2023-02-08 07:34] VITALS: O2SAT 100
[2023-02-08] MEDS: ALBUTEROL SULFATE (*SP) AEROSOL 1 PUFF 2 PUFF INHALATION (07:34)
[2023-02-08] MEDS: FLUTICASONE/UMECLIDIN/VILANTER 100-62.5-25 MCG ELLIPTA 1 PUFF INHALATION (07:34)
[2023-02-08] MEDS: DOCUSATE SODIUM 100 MG CAPSULE PO ×2 (09:47→17:06)
[2023-02-08] MEDS: FERROUS SULFATE 325 MG TABLET DR PO ×2 (09:47→17:06)
[2023-02-08] MEDS: predniSONE 20 MG TABLET 60 MG PO (09:47)
[2023-02-08] MEDS: CYANOCOBALAMIN 1,000 MCG TABLET 1000 MCG PO (09:47)
[2023-02-08] MEDS: POTASSIUM CHLORIDE 20 MEQ ER TABLET PO (09:47)
[2023-02-08] MEDS: CALCIUM CARBONATE (TUMS) 500 MG (200 MG ELEMENTAL) PO (09:47)
[2023-02-08] MEDS: ERGOCALCIFEROL 50,000 UNITS CAPSULE 50000 UNITS PO (09:47)
[2023-02-08] MEDS: DUTASTERIDE 0.5 MG CAPSULE PO (09:47)
[2023-02-08] MEDS: EUCERIN CREAM 120 GM JAR 1 APPLIC TOPICAL (09:48)
[2023-02-08] MEDS: FUROSEMIDE INJ 40 MG/4 ML VIAL IV PUSH (09:48)
[2023-02-08] MEDS: PANTOPRAZOLE 40 MG TABLET PO (09:48)
[2023-02-08] MEDS: LIDOCAINE 5% PATCH 1 PATCH TRANSDERM (09:48)
[2023-02-08] MEDS: FLUTICASONE PROPIONATE 0.05% NA SPR 16 GM BTL (*BKC) 2 SPRAY NASAL (09:48)
--- NOTE | 2023-02-08 10:43 | PCNWS ---
Weekly nutritional screen. Patient is tolerating current diet with adequate intake. No weight loss reported. No nutritional needs at this time.
[2023-02-08 14:00] VITALS: BP 130/69; PULSE 76; RESP 18; TEMP 36.6; O2SAT 95
--- NOTE | 2023-02-08 14:14 | PC.NURSE ---
Button Clamper spoke to Dr Bose by phone. Pt is ik to discharge to [facility] today.
--- NOTE | 2023-02-08 14:33 | PM.IMPN ---
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 - Other megaloblastic anemias, not elsewhere classified Status: Acute (4) Status post placement of cardiac pacemaker: Code(s): Z95.0 - Presence of cardiac pacemaker Status: Acute (5) CHF (congestive heart failure): Code(s): I50.9 - Heart failure, unspecified Status: Acute (6) Anemia: Qualifiers: Anemia type: other cause Other causes of anemia: other cause, not classified Qualified Code(s): D64.89 - Other specified anemias Code(s): D64.9 - Anemia, unspecified Status: Acute Plan Interstitial lung disease exacerbation, acute respiratory failure This is the 87-year-old male with past medical history of anemia presented with shortness of breath. Noted to be hypoxic requiring 12 L oxygen via nasal cannula in ED. IV Rocephin and azithromycin for pneumonia. ABG 7.44/44/65/29. COVID flu RSV negative. CTA PE negative for PE does show extensive pneumonia versus congestive heart failure Continue with IV antibiotics as ordered will get sputum culture. Consult process laboratory specialist Now finished azithromycin and cefepime Transition to tapering down prednisone p.o. per process laboratory specialist recommendation Fluid overload Continue diuresis for possible CHF component has increased q.8 hours with dizziness will back down to b.i.d. also received acetazolamide for metabolic alkalosis and improving Appreciate process laboratory specialist consultation Echo with bubble study reveals normal EF 55-60%, grade 1 diastolic dysfunction Continue Lasix 40 mg b.i.d. p.o. on discharge anemia with recent EGD showing reflux esophagitis 01/08/2023. Macrocytic anemia. GI and hematology has evaluated the patient. No history of overt bleeding. 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 Since discharge his hemoglobin went down to 7 and needed transfusion. TIBC is low okay. Hemoglobin baseline 10-11. Ferritin level was 400 H in the outlying hospital. H&H Down to 7 again during hospitalization, transfused 1 unit of PRBC and Lasix 40 mg after that GI consulted with ongoing anemia which is suspect is related to GI bleed. Evidence of iron deficiency on bone marrow biopsy will order iron infusion H&H dropped again will potentially need capsule study to further evaluate Anticoagulation on hold due to recurrent anemia H&H remained stable now since off anticoagulation history of admission at [place] where he was diagnosed with segmental PE in November of 2022. Treated with anticoagulation on and off. Status post bone marrow biopsy on 01/03/2023 mildly hypercellular marrow for age with maturing trilineage hematopoiesis no excess of blast no atypical infiltrate a regular get of B-cells no evidence of mild dysplastic features. 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 Subjective Date/time seen: 02/08/23 14:33 Interval history: Patient feels better today,feels better slept well, appetite is good. Patient is on nasal cannular3 . Patient denies chest pain, abdomen pain nausea vomiting diarrhea Exam Narrative: General physical exam: Patient feels very tired and fatigued, wel
--- NOTE | 2023-02-08 14:36 | PM.DS ---
DS: Admitting Diagnosis Discharge Date 02/08/23 Admitting Diagnosis (1) Bilateral pneumonia: ?Code(s): J18.9 - Pneumonia, unspecified organism ?Status:?Acute (2) Acute on chronic respiratory failure: ?Qualifiers: ?Respiratory failure complication:?hypoxia? Qualified Code(s):?J96.21 - Acute and chronic respiratory failure with hypoxia ?Code(s): J96.20 - Acute and chronic respiratory failure, unspecified whether with hypoxia or hypercapnia ?Status:?Acute (3) Megaloblastic anemia: ?Code(s): D53.1 - Other megaloblastic anemias, not elsewhere classified ?Status:?Acute (4) Status post placement of cardiac pacemaker: ?Code(s): Z95.0 - Presence of cardiac pacemaker ?Status:?Acute (5) CHF (congestive heart failure): ?Code(s): I50.9 - Heart failure, unspecified ?Status:?Acute (6) Anemia: ?Qualifiers: ?Anemia type:?other cause??Other causes of anemia:?other cause, not classified? 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 who was brought to the ER for evaluation for his shortness of breath and cough? for couple of days which is getting worse.? He uses 3 L of oxygen via nasal cannula at home, but the oxygen requirements have increased today.? Workup was done in the ER which? showed O2 sats in 70s. ? His oxygen was increased to 12L via nasal cannula with some relief.? Workup was done which showed extensive pneumonia involving both sides.? He is started on IV antibiotics and is being admitted for medical management. The following medical issues have been addressed during hospitalization Interstitial lung disease exacerbation, acute respiratory failure This is the 87-year-old male with past medical history of anemia presented with shortness of breath. Noted to be hypoxic requiring 12 L oxygen via nasal cannula in ED. IV Rocephin and azithromycin for pneumonia. ABG 7.44/44/65/29. COVID flu RSV negative. CTA PE negative for PE does show extensive pneumonia versus congestive heart failure Continue with IV antibiotics as ordered will get sputum culture. Consult turret punch operator Now finished azithromycin and cefepime Transition to tapering down prednisone p.o. per turret punch operator recommendation Fluid overload Continue diuresis for possible CHF component has increased q.8 hours with dizziness will back down to b.i.d. also received acetazolamide for metabolic alkalosis and improving Appreciate turret punch operator consultation Echo with bubble study reveals normal EF 55-60%, grade 1 diastolic dysfunction Continue Lasix 40 mg b.i.d. p.o. on discharge no compensated anemia recent EGD showing reflux esophagitis 01/08/2023. Macrocytic anemia. GI and hematology has
[2023-02-08 20:23] LABS: Aldolase 4.3 U/L (<=8.1)
[2023-02-09 21:41] LABS: ANCA Screen Negative (Negative)
[2023-02-15 22:42] LABS: JO-1 AB <11 SI (<11); MI-2 Alpha Ab <11 SI (<11); MI-2 Beta Ab <11 SI (<11); NXP-2 AB <11 SI (<11); TIF1 Gamma Ab <11 SI (<11)
== END 2023-02-08 17:55 | DRG 193 ==
LOC: ANHED 20:56 → ANHIMU 01-31 02:14 → ANH3MED 02-06 21:28
PROVIDERS: Internal Medicine; Internal Medicine Hematology & Oncology; Internal Medicine Pulmonary Disease; Student in an Organized Health Care Education/Training Program; Admitting Provider Family Medicine; Emergency Provider Physician Assistant; Visit Provider Hospitalist
DX: J18.9 Pneumonia, unspecified organism (principal); I50.33 Acute on chronic diastolic (congestive) heart failure; J96.21 Acute and chronic respiratory failure with hypoxia; D53.1 Other megaloblastic anemias, not elsewhere classified; D50.9 Iron deficiency anemia, unspecified; E53.8 Deficiency of other specified B group vitamins; E03.9 Hypothyroidism, unspecified; I25.10 Atherosclerotic heart disease of native coronary artery without angina pectoris; I11.0 Hypertensive heart disease with heart failure; J84.10 Pulmonary fibrosis, unspecified; K21.00 Gastro-esophageal reflux disease with esophagitis, without bleeding; Z86.711 Personal history of pulmonary embolism; Z95.0 Presence of cardiac pacemaker; Z20.822 Contact with and (suspected) exposure to COVID-19; Z86.74 Personal history of sudden cardiac arrest; Z99.81 Dependence on supplemental oxygen; Z23 Encounter for immunization; Z79.82 Long term (current) use of aspirin; Z79.01 Long term (current) use of anticoagulants; Z87.891 Personal history of nicotine dependence
CPT/HCPCS: 36415; 36430; 36600; 71045; 71275; 80048; 80053; 80202; 82085; 82306; 82375; 82550; 82607; 82728; 82746; 82805; 82948; 83050; 83540; 83550; 83605; 83735; 83880; 83921; 84100; 84182; 84238; 84439; 84443; 85025; 85610; 85652; 85730; 86036; 86038; 86140; 86200; 86331; 86334; 86430; 86606; 86609; 86703; 86738; 86850; 86900; 86901; 86923; 87070; 87081; 87205; 87449; 87633; 87637; 87899; 90471; 90694; 93005; 93970; 94640; 94667; 94668; 94762; 96365; 96366; 96375; 97110; 97116; 97161; 97166; 97530; 97535; 99291; A9270; C8929; G0008; G0378; G0432; J0456; J0692; J0696; J1120; J1756; J1940; J2930; J3370; J7050; J7512; P9016; Q9967